=== PATIENT | male | born 1990 | race Caucasian/White ===

== ENCOUNTER 2023-08-10 23:05 | Emergency (ER) | payer SELFPAY ==
[2023-08-10 23:25] VITALS: RESP 20
[2023-08-10] MEDS: LORazepam 2 MG/ML VIAL IM (23:25)
[2023-08-10] MEDS: diphenhydrAMINE HCL 50 MG/ML VIAL IM (23:25)
[2023-08-10] MEDS: Haloperidol Lactate 5 MG/ML VIAL IM (23:25)
[2023-08-10 23:35] VITALS: BP 136/74; PULSE 120; RESP 16; O2SAT 98; BMI 27.1
--- NOTE | 2023-08-10 23:38 | PC.NURSE ---
no si/hi. sitter at bedside.
[2023-08-10 23:40] VITALS: PULSE 106; RESP 20; O2SAT 89
--- NOTE | 2023-08-10 23:40 | PC.NURSE ---
pt medicated per mar per Dr. Verma order. pt now sleeping appears comfortable arrousable to name. sats 89% on RA; 2L NC sats 92%. pt able to reposition self in stretcher. sitter at bedside.
[2023-08-10 23:51] VITALS: PULSE 101; O2SAT 92
[2023-08-11 00:04] LABS: MANUAL DIFF FLAG NO
[2023-08-11 00:05] LABS: Basophils Absolute Auto 0.1 X10*3/uL (0.0-0.2); Basophils Percent Auto 1.4 % (0-2); Eosinophils Absolute Auto 0.2 X10*3/uL (0.0-0.4); Eosinophils Percent Auto 3.4 % (0-4); Hematocrit 39.6 % (42.0-52.0); Hemoglobin 13.8 g/dl (14.0-18.0); Imm Gran Abs Auto 0.01 X10*3/uL (0.00-0.03); Imm Gran Pct Auto 0.2 % (0.0-0.4); Lymphocytes Absolute Auto 1.8 X10*3/uL (1.2-4.9); Lymphocytes Percent Auto 28.7 % (20-40); Mean Corpuscular HGB Conc 34.8 g/dl (31.0-36.0); Mean Corpuscular Hemoglobin 31.2 pg (27.0-33.0); Mean Corpuscular Volume 89.4 fL (80.0-98.0); Mean Platelet Volume 9.2 fL (9.4-12.4); Monocytes Absolute Auto 0.7 X10*3/uL (0.1-1.2); Monocytes Percent Auto 10.4 % (2-11); Neutrophils Absolute Auto 3.5 x10*3/uL (2.0-8.3); Neutrophils Percent Auto 55.9 % (45-73); Platelet Count 291 X10*3/uL (160-400); Red Blood Count 4.43 X10*6/uL (4.60-5.80); Red Cell Distribution Width 13.7 % (11.0-16.0); White Blood Count 6.2 X10*3/uL (4.8-10.8)
[2023-08-11 00:10] VITALS: PULSE 97; RESP 18; O2SAT 99
[2023-08-11 00:22] LABS: Alanine Aminotransferase 18 U/L (0-40); Albumin Level 4.2 g/dL (3.5-5.0); Alkaline Phosphatase 77 U/L (39-117); Anion Gap 16 (12-20); Aspartate Amino Transferase 48 U/L (5-37); Bilirubin Total 0.3 mg/dL (0.0-1.0); Blood Urea Nitrogen 15 mg/dL (9-16); Calcium 8.8 mg/dL (8.4-10.2); Carbon Dioxide 27 mmol/L (22-29); Chloride 108 mmol/L (96-108); Creatinine Clr Calc Pharmacy 124.1; Estimated Glomerular Filt Rate > 60; Ethanol 369 mg/dL; Glucose Random 99 mg/dL (60-115); Potassium 3.6 mmol/L (3.3-5.1); Sodium 147 mmol/L (135-145); Total Protein 7.1 g/dL (6.5-8.0)
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
--- NOTE | 2023-08-11 01:54 | PC.NURSE ---
pt sleeping in stretcher resp even and unlabored. 1:1 sitter at bedside.
[2023-08-11 05:14] VITALS: BP 129/67; PULSE 81; RESP 16; O2SAT 99
--- NOTE | 2023-08-11 07:13 | PC.NURSE ---
Resumed care of patient, he is currently sleeping with a 1:[address] measures in place, pt has been changed into hospital attire, belongings in decon at this time
--- NOTE | 2023-08-11 08:56 | PC.NURSE ---
This bid writer talked with patient who was asking what the plan is. he currently just moved here and does not have providers in place. Pt awaiting careteam at this time, denies SI/HI, denies wanting Detox a this time.
[2023-08-11 09:33] VITALS: BP 133/74; PULSE 104; RESP 16; TEMP 37; O2SAT 96
== END 2023-08-11 10:43 | disposition home or self-care (01) ==
LOC: HO.ED 08-11 09:31
PROVIDERS: Emergency Provider Internal Medicine
DX: F10.129 Alcohol abuse with intoxication, unspecified (principal); Y90.8 Blood alcohol level of 240 mg/100 ml or more
CPT/HCPCS: 36415; 80053; 80307; 85025; 96372; 99284; 99285; J1200; J1630; J2060

== ENCOUNTER 2023-12-15 22:41 | Emergency (ER) | payer OTHER, SELFPAY ==
[2023-12-15 23:20] VITALS: BP 158/94; PULSE 121; O2SAT 96
[2023-12-15 23:24] VITALS: BMI 30.4
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
--- NOTE | 2023-12-16 00:44 | PC.NURSE ---
pt states he is unable to find a sober ride home at this time, security called to bedside to change release manager pt into green attire. pt calm and cooperative and ambulating to bathroom with steady gait.
[2023-12-16 02:23] VITALS: RESP 18
== END 2023-12-16 02:34 | disposition home or self-care (01) ==
PROVIDERS: Emergency Provider Emergency Medicine
DX: F10.129 Alcohol abuse with intoxication, unspecified (principal); Y90.9 Presence of alcohol in blood, level not specified; F91.9 Conduct disorder, unspecified; Z79.899 Other long term (current) drug therapy
CPT/HCPCS: 99284

== ENCOUNTER 2024-05-05 03:57 | Inpatient (IN) | payer OTHER, SELFPAY ==
[2024-05-05] VITALS (16 sets, daily range): BP systolic 93–153; BP diastolic 55–109; PULSE 71–118; RESP 14–24; TEMP 36.1–37.2; O2SAT 94–100; BMI 64.2; BMI 29.9
--- NOTE | ~2024-05-05 | CT_ITS ---
EXAMINATION: CT HEAD WITHOUT CONTRAST CLINICAL INFORMATION: Mental status change COMPARISON: None available. TECHNIQUE: Contiguous axial imaging was performed from the skull base to vertex without intravenous administration of contrast. This CT examination was performed using dose optimization techniques as appropriate, variously including the following: *Automated exposure control *Adjustment of mA and/or kV according to patient size (this includes techniques or standardized protocols for targeted exams where dose is matched to indication/reason for exam; i.e. extremities or head) *Use of iterative reconstruction technique DLP: 697 mGy-cm FINDINGS: Asymmetric hypoattenuation within the left occipital lobe, 8:66 , 5:108 and 2:27. Elsewhere the kelly-white matter differentiation appears preserved. There is no evidence of acute intracranial hemorrhage. The ventricles are normal in morphology and size. No evidence for obstructive hydrocephalus. No abnormal mass effect or midline shift. No extra-axial fluid collections. No acute soft tissue or osseous abnormalities. Trace paranasal sinus mucosal thickening. The mastoids are well-aerated. CT/CT head/brain wo IV con IMPRESSION: Asymmetric hypoattenuation within the left occipital lobe with apparent loss of kelly-white matter differentiation. Unclear if this is artifactual. Further evaluation with MRI brain is recommended to assess for an acute infarct. This Critical Result was discussed with Dr Lamar Webb at 9:34 am on 05/05/2024 and it was ascertained that the content and urgency of the report was understood at the time of direct communication. Electronically signed by: Joe Barajas MD 05/05/2024 09:37 AM EDT
--- NOTE | ~2024-05-05 | XR_ITS ---
EXAMINATION: PRE-MRI SCREENING CLINICAL INFORMATION: Needs MRI COMPARISON: None available. TECHNIQUE: Single live of the lumbar spine, AP view chest and oblique view of the abdomen FINDINGS: The mediastinum appears mildly widened. Heart size within normal limits. No CHF. No gross bowel dilatation. No radiopaque foreign bodies are seen. XR/XR pre mri screening IMPRESSION: 1. No radiopaque foreign bodies are seen. 2. The mediastinum appears mildly widened. Electronically signed by: oYbani Vasquez MD 05/05/2024 05:26 PM EDT
--- NOTE | 2024-05-05 04:22 | PC.NURSE ---
Patient endorses being under the influence of alcohol. Changed into hospital attire, Belongings located in C6 in the closet. Of note, patient does seem to be speaking to people that are not there and reacting to internal stimuli.
--- NOTE | 2024-05-05 04:32 | PC.NURSE ---
Patient complaining of pins and needles in his arm and becoming very exacerbated about this feeling. At the same time is having difficulty recalling basic information like address and or phone number.
[2024-05-05 05:03] LABS: Basophils Absolute Auto 0.1 X10*3/uL (0.0-0.2); Basophils Percent Auto 0.6 % (0-2); Eosinophils Absolute Auto 0.1 X10*3/uL (0.0-0.4); Eosinophils Percent Auto 0.6 % (0-4); Hematocrit 44.5 % (42.0-52.0); Imm Gran Abs Auto 0.03 X10*3/uL (0.00-0.03); Imm Gran Pct Auto 0.4 % (0.0-0.4); Lymphocytes Absolute Auto 1.6 X10*3/uL (1.2-4.9); Lymphocytes Percent Auto 19.7 % (20-40); MANUAL DIFF FLAG NO; Mean Corpuscular Hemoglobin 31.5 pg (27.0-33.0); Mean Corpuscular Volume 87.6 fL (80.0-98.0); Mean Platelet Volume 9.6 fL (9.4-12.4); Monocytes Absolute Auto 0.9 X10*3/uL (0.1-1.2); Monocytes Percent Auto 11.6 % (2-11); Neutrophils Absolute Auto 5.4 x10*3/uL (2.0-8.3); Neutrophils Percent Auto 67.1 % (45-73); Platelet Count 177 X10*3/uL (160-400); Red Blood Count 5.08 X10*6/uL (4.60-5.80); Red Cell Distribution Width 11.9 % (11.0-16.0); White Blood Count 8.1 X10*3/uL (4.8-10.8)
[2024-05-05 05:19] LABS: Alanine Aminotransferase 454 U/L (0-40); Albumin Level 4.7 g/dL (3.5-5.0); Alkaline Phosphatase 47 U/L (39-117); Amphetamine Screen Urine Not Detected (Not Detect); Anion Gap 17 (12-20); Aspartate Amino Transferase 620 U/L (5-37); Barbiturates, Urine Not Detected (Not Detect); Benzodiazepines Screen Urine Not Detected (Not Detect); Bilirubin Total 0.6 mg/dL (0.0-1.0); Blood Urea Nitrogen 10 mg/dL (9-16); Buprenorphine Scr Not Detected (Not Detect); Calcium 9.7 mg/dL (8.4-10.2); Cannabinoid Screen Urine Not Detected (Not Detect); Carbon Dioxide 22 mmol/L (22-29); Chloride 102 mmol/L (96-108); Cocaine Screen Urine Not Detected (Not Detect); Estimated Glomerular Filt Rate > 60; Ethanol 217 mg/dL; Fentanyl, urine Not Detected (Not Detect); Glucose Random 98 mg/dL (60-115); Methadone Screen, Urine Not Detected (Not Detect); Opiate Screen Urine Not Detected (Not Detect); Oxycodone Screen Urine Not Detected (Not Detect); Phencyclidine Screen Urine Not Detected (Not Detect); Potassium 3.3 mmol/L (3.3-5.1); Sodium 138 mmol/L (135-145)
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
[2024-05-05] MEDS: LORazepam 1 MG TABLET 2 MG PO (08:26)
[2024-05-05] MEDS: Thiamine HCL 100 MG TABLET PO (08:27)
[2024-05-05 09:09] LABS: Magnesium 1.9 mg/dL (1.6-2.6)
[2024-05-05 09:41] LABS: Alanine Aminotransferase 446 U/L (0-40); Albumin Level 4.5 g/dL (3.5-5.0); Alkaline Phosphatase 45 U/L (39-117); Aspartate Amino Transferase 556 U/L (5-37); Bilirubin Direct 0.2 mg/dL (0.0-0.5); Bilirubin Total 0.6 mg/dL (0.0-1.0); Total Protein 7.7 g/dL (6.5-8.0)
[2024-05-05] MEDS: PHENobarbitaL sodium 130 MG/ML IM ONCE 361 MG IM (09:54)
[2024-05-05] MEDS: Thiamine HCL 200 MG in 0.9 % Sodium Chloride 100 ML 204 MG IV ×2 (09:54→22:38)
--- NOTE | 2024-05-05 09:56 | PC.NURSE ---
20g LAC CIWA = 9; Pt medicated per MAR. Pt is restless and frequently attempts to get out of bed. Pt noted to be talking to self or no person directly. VSS.
[2024-05-05 09:57] LABS: Ammonia 31 umol/L (13-55)
[2024-05-05] MEDS: LORazepam 2 MG/ML VIAL IM (10:38)
[2024-05-05] MEDS: OLANZapine 10 MG VIAL IM (10:39)
--- NOTE | 2024-05-05 11:10 | PHA.MEDREC ---
Addendum entered by Emmanuel Dickens [facility] 05/06/24 09:16: Still can't talk to patient, he was in a deep sleep. Original Note: Pharmacy Consult ? Medication Reconciliation Pharmacy has completed the medication reconciliation. Patient came to [facility]. Home medications are Unobtainable at this time because there are no claims and no contact on file for patient.
[2024-05-05] MEDS: PHENobarbitaL sodium 65 MG/ML VIAL IVPUSH ×2 (11:22→11:26)
--- NOTE | 2024-05-05 11:24 | P.HPHOSP_ITS ---
History of Present Illness Date of Service: 05/05/24 Attending physician on admission: Danielle Edmondson Chief Complaint: Alcohol intoxication, AMS Pt is a 34-year-old male with an unknown PMH who presents to the ED via EMS after being found by the police department acutely intoxicated and talking to himself. Patient has been chemically and physically restrained due to aggressive/agitated behavior and is currently somnolent and resting comfortably in bed in no acute distress. Patient is thus unable to provide accurate HPI which is instead taken from chart and provider review. Patient has been altered and apparently experiencing auditory and visual hallucinations since arrival, talking to himself, hu, and people who are not there. Patient's story has constantly changed, from believing that he was dropped off by his brother from home, that he needs to take a train to [place] to visit his children, to not remembering his name/initially providing the wrong name at triage, and giving the date of May 2025. Patient has also been talking about some kind of ?drop off? at a bus stop involving $40,000 and some kind of plan that nursing is not abiding by. Other bizarre behavior includes licking the bed rails and screaming. Pt has repeatedly attempted to leave AMA but is not at baseline and unable to comprehend his situation. A section 12 has been issued. Care team has been notified and will evaluate and reach out to Psychiatry as necessary. 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 Apparently called a brother to come pick him up, but has provided no family/other contact info to the hospital to contact. In the ED pt was tachycardic up to 118 and initially hypertensive at 152/99. Labs were significant for transaminitis AST 620 and ALT 454. No leukocytosis. Stable H&H. No electrolyte abnormalities. Renal function baseline. Ammonia WNL. Tox screen positive for ethyl alcohol level of 217, otherwise negative. CT?of head showed asymmetric hypoattenuation within left occipital lobe apparent loss of kelly-white matter differentiation. Unclear if artifactual, though MRI recommended to assess for acute infarct. EKG not yet obtained. Pt was treated with Ativan p.o. and IM, thiamine p.o. and IV, olanzapine 10 mg IM and started on phenobarb protocol. Pt will be admitted to the hospital for treatment and further evaluation of acute metabolic encephalopathy of unclear etiology: Acute psychosis vs alcohol withdrawal vs CVA. Review of Systems 2 Review of Systems: Unable to obtain due to patient's mentation [facility] Medical History No pertinent past medical history Social History (System 05/05/24 @ 12:18 by Bianca Watkins) Alcohol intake: current Alcohol intake frequency: 3 or more drinks per day Alcohol type: beer and hard liquor Smoked in Last 30 Days: Yes Use of substances other than those prescribed or required for medical reasons: No Advance Directives: No Advance Directives Information Provided: No Do you have a plan to hurt others: No Plan Meds Allergies Allergy/AdvReac Type Severity Reaction Status Date / Time No Known Allergies Allergy Verified 05/05/24 12:18 Active Medications: Current Medications Lorazepam (Lorazepam 1 Mg Tablet) 2 mg PO Q3H PRN PRN Reason: Alcohol Withdrawal Last Admin: 05/05/24 08:26 Dose: 2 mg Pharmacy Consult (Consult Rx Etoh Phenob Im/Po) 1 each MISCELLANE ONCE PRN; Protocol PRN Reason: Consult order Phenobarbital (Phenobarbital 30 Mg Tablet) 60 mg PO BID PO; Protocol Stop: 05/07/24 09:01 Phenobarbital (Phenobarbital 30 Mg Tablet) 30 mg PO BID PO; Protocol Stop: 05/09/24 09:01 Phenobarbital (Phenobarbital 30 Mg Tablet) 30 mg PO DAILY PO; Protocol Stop: 05/11/24 09:01 Phenobarbital Sodium (Phenobarbital Sodium 130 Mg/Ml Vial Im Q3hx2) 271 mg IM Q3H PO; Protocol Stop: 05/05/24 15:31 Home Medications ?Medication ?Instructions ?Recorded ?Confirmed ?Last Taken ?Type Unobtainable 05/05/24 05/05/24 Unknown History Physical Exam 2 Vital Signs and Narrative: Vital Signs: Last Vital Signs Temp 97 F 05/05/24 08:57 Pulse 106 H 05/05/24 09:09 Resp 16 05/05/24 09:09 BP 134/86 05/05/24 09:09 Pulse Ox 94 05/05/24 09:09 O2 Del Method Room Air 05/05/24 09:09 BMI result Body Mass Index 64.2 General: Somnolent, resting comfortably in bed. In 4-point soft restraints. In no acute distress. Resp: CTA bilaterally CVS: S1, S2, regularl rhythm, tachy GI: +BS, NT, no distention Skin: Warm, dry Neuro: Cranial nerves II-XII grossly intact bilaterally. Motor grossly intact bilaterally Extremities: No edema Results Labs 05/05/24 04:58 05/05/24 04:58 Labs: Laboratory Results - last 24 hr 05/05/24 05/05/24 05/05/24 04:58 09:10 09:33 MCV 87.6 MCH 31.5 MCHC 36.0 RDW 11.9 Plt Count 177 MPV 9.6 Immature Gran % (Auto) 0.4 Neut % (Auto) 67.1 Lymph % (Auto) 19.7 L Imperial % (Auto) 11.6 H Eos % (Auto) 0.6 Baso % (Auto) 0.6 Lymph # (Auto) 1.6 Imperial # (Auto) 0.9 Eos # (Auto) 0.1 Baso # (Auto) 0.1 Abs Immat Gran (auto) 0.03 Absolute Neuts (auto) 5.4 Absolute Nucleated RBC 0.000 Nucleated RBC % (auto) 0.0 Anion Gap 17 Estim Creat Clear Calc TNP Estimated GFR > 60 Random Glucose 98 Calcium 9.7 Magnesium 1.9 Total Bilirubin 0.6 0.6 Direct Bilirubin 0.2 AST 620 H 556 H ALT 454 H 446 H Alkaline Phosphatase 47 45 Ammonia 31 Total Protein 8.0 7.7 Albumin 4.7 4.5 Urine Opiates Screen Not Detected Ur Buprenorphine Scrn Not Detected Ur Oxycodone Screen Not Detected Urine Methadone Screen Not Detected Urine Fentanyl Screen Not Detected Ur Barbiturates Screen Not Detected Ur Phencyclidine Scrn Not Detected Ur Amphetamines Screen Not Detected U Benzodiazepines Scrn Not Detected Urine Cocaine Screen Not Detected U Marijuana (THC) Screen Not Detected Ethyl Alcohol 217 Imaging Radiologist's Impressions: Impressions Head CT 05/05/24 08:42 IMPRESSION: Asymmetric hypoattenuation within the left occipital lobe with apparent loss of kelly-white matter differentiation. Unclear if this is artifactual. Further evaluation with MRI brain is recommended to assess for an acute infarct. This Critical Result was discussed with Dr Lamar Webb at 9:34 am on 05/05/2024 and it was ascertained that the content and urgency of the report was understood at the time of direct communication. Electronically signed by: Joe Barajas MD 05/05/2024 09:37 AM EDT RP Assessment and Plan (1) Metabolic encephalopathy: Status: Acute Plan Pt is a 34-year-old male with an unknown PMH who presents to the ED via EMS after being found by the police department acutely intoxicated and talking to himself. Patient has been chemically and physically restrained due to aggressive/agitated behavior and is currently somnolent and resting comfortably in bed in no acute distress. Pt will be admitted to the hospital for treatment and further evaluation of acute metabolic encephalopathy of unclear etiology: Acute psychosis vs alcohol withdrawal vs CVA. Acute metabolic encephalopathy Patient with AMS, auditory and visual hallucinations, aggression/agitation Unclear etiology: Acute psychosis vs alcohol withdrawal vs acute intoxication vs CVA No known psych history, no known withdrawal history, tox screen positive only for ethyl alcohol of 217 Patient currently chemically and physically restrained with section [address] Care team consult Treat individual issues on differential as below Alcohol use disorder Reports drinking heavily daily Initial ethyl alcohol 217, withdrawal likely imminent Patient is started phenobarb protocol, continue Will treat with IV thiamine 200 mg bid Daily multivitamin, folic acid, famotidine Follow lytes, Mag Monitor on [facility] Addiction medicine consult Monitor on telemetry Abnormal CT CT found asymmetric hypoattenuation within left occipital lobe ?Artifactual vs acute infarct Will get MRI of head/brain Elevated LFTS AST 620 with ALT 454 Likely secondary to alcoholic hepatitis Will check hepatitis panel Intermittent hypoxia Pt dipping into 80s while sleeping ?TALYA Oxymask while sleeping Follow up outpatient Full Code Attending:?Dr. Edmondson DVT Prophylaxis: Lovenox Pt will require a hospitalization of at least two nights for treatment of?acute metabolic encephalopathy of unclear etiology with differential including acute psychosis vs alcohol withdrawal vs acute intoxication vs CVA. Patient is currently placed on a section 12 and not at baseline. We will require hospital level care for administration of phenobarb protocol, close monitoring of labs and mentation, as well as additional workup for acute psychosis and CVA. Quality Stroke Does the patient have a stroke diagnosis?: No VTE Prior VTE?: No VTE Risk Level:: Medical - moderate - high VTE Device Contraindication: Treatment Not Indicated VTE Drug Contraindication: N/A - Med Ordered
[2024-05-05] MEDS: Lactated Ringers 1,000 ML 999 ML IV ×2 (12:14)
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
--- NOTE | 2024-05-05 12:54 | PC.NURSE ---
1250: upper restraints removed from Pt--Pt is now completely unrestrained. Pt repositioned for comfort and ease for sleeping. While repositioning, large area of ecchymosis noted to Pt R posterior upper extremity. Pt continues sleeping and snoring loudly. VSS and NAD noted at this time. Pt with sitter currently.
--- NOTE | 2024-05-05 13:56 | MHC.CM.ED ---
PATIENT CURRENTLY IN ROOM WITH STAFF AND SECURITY. NOT AN APPROPRIATE TIME TO HAVE CM DISCUSSION AND ASSESSMENT OF CARE NEEDS. NO PCP LISTED. NO HCP ON FILE. CM FOLLOWING FOR DC NEEDS.
[2024-05-05] MEDS: Enoxaparin Sodium 40 MG/0.4 ML SYRINGE SUBCUT (14:46)
[2024-05-05] MEDS: 0.9 % Sodium Chloride Flush 3 ML SYRINGE IVFLUSH (16:53)
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
--- NOTE | 2024-05-05 18:44 | PC.NURSE ---
1400: Pt presents with significant agitation, combative, and uncooperative behavior. Four point restrains applied, sitter presnt, VS monitored Q15 mins. At approx 1715: Pt becomes alert and requests to use bathroom. Security called and Pt allows one limb for urinal use. Upon using the urinal, Pt attempted to remove his other restraints and demanded to leave. Consult with hospitalist re: leaving restraints on. Plan is to continue and possibly add IM medications.
--- NOTE | 2024-05-05 19:03 | PC.NURSE ---
Care of Pt and restraint documentation relinquished to RN Norim.
[2024-05-05] MEDS: PHENobarbitaL sodium 130 MG/ML VIAL IM (19:20)
--- NOTE | 2024-05-05 19:26 | PC.NURSE ---
assumed care of pt at this time. pt is axox4. vss as documented. ciwa score 9 has moments of becoming agitated and restless states he had tickets to [place] to fly out and needs to leave. pt is answer questions appropriately. currently in 4 point restraints, upon removal of a limb pt starts flailing/reaching to remove other restraints. per MD to continue restraints x 4 hours from start time at 1800. pt medicated per oct with phenobarb for withdrawals. 1:1 sitter at bedside.
--- NOTE | 2024-05-05 21:45 | PC.NURSE ---
restraints removed see restraint sheet. 1:1 sitter at bedside. pt sleeping. resp even and unlabored.
--- NOTE | 2024-05-05 23:56 | PC.NURSE ---
restraints removed see restraint sheet. 1:1 sitter at bedside. pt sleeping. resp even and unlabored.
[2024-05-06 00:02] VITALS: BP 95/57; PULSE 81; RESP 14; TEMP 36.9; O2SAT 97
--- NOTE | 2024-05-06 00:17 | PC.NURSE ---
2100 po meds held as pt sleeping md okay to not awake pt.
[2024-05-06 03:25] VITALS: BP 96/53; PULSE 70; RESP 20; TEMP 36.6; O2SAT 97
[2024-05-06 07:09] LABS: Blood Urea Nitrogen 12 mg/dL (9-16); Calcium 9.2 mg/dL (8.4-10.2); Creatinine Clr Calc Pharmacy 155.3; Estimated Glomerular Filt Rate > 60; Glucose Random 78 mg/dL (60-115); Magnesium 1.9 mg/dL (1.6-2.6)
[2024-05-06 07:24] LABS: Anion Gap 14 (12-20); Carbon Dioxide 28 mmol/L (22-29); Chloride 103 mmol/L (96-108); Sodium 141 mmol/L (135-145)
[2024-05-06 07:52] LABS: HBS Num1 0.26 mIU/mL (0-7.99); HBc Num1 0.23 S/CO (0.00-0.79); HBsAGNum1 0.31 S/CO (0.00-0.99); Hepatitis A Antibody IgM 0.17 Index (0-0.79); Hepatitis B Core Antibody Nonreactive (Nonreactive); Hepatitis B Surface Antigen Negative (Negative); ~HepC Num1 0.17 S/CO (0.00-0.79); ~Hepatitis A Antibody IgM Nonreactive (Nonreactive); ~Hepatitis B Surface Antibody NONREACTIVE (Nonreactive); ~Hepatitis C Antibody Nonreactive (Nonreactive)
--- NOTE | 2024-05-06 07:55 | PC.NURSE ---
Patient admitted from the ED around 0105 with sitter 1;1 at bed side.AAOX4. Denies pain , sob, nausea, vomiting. Patient is calmer and more cooperative. CIWA Score 6 and 3. VSS. NSR on tele monitor.
[2024-05-06 08:00] VITALS: BP 115/68; PULSE 64; RESP 18; TEMP 36.3; O2SAT 98
[2024-05-06] MEDS: PHENobarbitaL 30 MG TABLET 60 MG PO (09:54)
[2024-05-06] MEDS: Folic Acid 1 MG TABLET PO (09:54)
[2024-05-06] MEDS: 0.9 % Sodium Chloride Flush 3 ML SYRINGE IVFLUSH (09:55)
[2024-05-06] MEDS: Famotidine 20 MG TABLET PO (09:55)
[2024-05-06 12:00] VITALS: BP 149/73; PULSE 79; RESP 18; TEMP 36.6; O2SAT 99
--- NOTE | 2024-05-06 13:27 | MHC.CM.PN ---
Pt lives with his mother and brother. He is independent, no home health services or DME. He does not have a PCP, brochure for [facility] was given to him. HCP will be completed and added to chart. He said he will take the bus home at time of DC. DCP: home, self care. CM to follow for DC needs.
--- NOTE | 2024-05-06 17:07 | PM.PSYCN ---
History of Present Illness Date of Service: 05/06/2024 Chief Complaint: Acute metabolic encephalopathy Reason for Consult: capacity Requesting physician: Danielle Edmondson Discussed with referring provider: Yes Sources of Information: patient interviewed, chart reviewed and crisis/core team assessment reviewed HPI Narrative: Mr. Gooden is a 34 year-old male with hx of alcohol use disorder who self presented to [facility] confused, talking with the wall, not oriented to month. His BAL was 217. He was medically admitted to start phenobarb alcohol withdrawal taper and thiamine. Pt today demending to leave and given presentation yesterday capacity assessment was ordered. Pt seen in his room. He presents as irritable and initially difficult to redirect so assessment could be conducted. He reports he drinks daily. He does not have much recollection yesterday and thinks that he was kept unnecessarily stating I was fine yesterday. He knows the month, year, place. No insight into extent of alcohol use disorder but his overall capacity to make medical decisions seems intact. He reports he works at [email or web address], that he does not want to miss more days at work. He declines any referrals for substance use tx. He does not appear with psychosis or delusions. Although this morning he had said that staff had stolen $400 from him, which he later stated this was not true, and that he did not believe this anymore. He denied SI/HI. He denies depressed mood. [facility] Medical History No pertinent past medical history Diagnostics Vital Signs (24Hr): Vital Signs - 24 hr 05/05/24 19:18 05/05/24 19:30 05/05/24 19:45 Temperature 98.8 F 98.7 F 98.0 F Pulse Rate 100 78 99 Respiratory Rate 15 14 14 Blood Pressure 139/80 144/93 H 140/95 H Pulse Oximetry 100 100 98 Oxygen Delivery Method Oxymask Oxymask Oxymask Oxygen Flow Rate 5 5 05/05/24 20:00 05/05/24 20:15 05/05/24 20:30 Temperature 98.2 F Pulse Rate 115 H 101 H 98 Respiratory Rate 24 H 15 14 Blood Pressure 153/105 H 128/109 H 126/73 Pulse Oximetry 99 97 95 Oxygen Delivery Method Room Air Room Air Room Air Oxygen Flow Rate 05/05/24 20:45 05/05/24 21:00 05/05/24 21:15 Temperature Pulse Rate 97 91 99 Respiratory Rate 15 16 17 Blood Pressure 129/75 114/76 93/61 Pulse Oximetry 96 97 95 Oxygen Delivery Method Oxymask Oxymask Oxymask Oxygen Flow Rate 2 2 4 05/05/24 21:30 05/05/24 21:45 05/06/24 00:02 Temperature 98.4 F Pulse Rate 79 71 81 Respiratory Rate 14 16 14 Blood Pressure 101/64 93/55 L 95/57 L Pulse Oximetry 97 99 97 Oxygen Delivery Method Oxymask Oxymask Oxymask Oxygen Flow Rate 4 4 4 05/06/24 03:25 05/06/24 08:00 05/06/24 12:00 Temperature 97.9 F 97.3 F 97.9 F Pulse Rate 70 64 79 Respiratory Rate 20 18 18 Blood Pressure 96/53 L 115/68 149/73 H Pulse Oximetry 97 98 99 Oxygen Delivery Method Room Air Room Air Room Air Oxygen Flow Rate BMI result Body Mass Index 29.9 Labs 05/05/24 04:58 05/06/24 06:07 Labs: Laboratory Results - last 48 hr 05/05/24 05/05/24 05/05/24 04:58 09:10 09:33 WBC 8.1 RBC 5.08 Hgb 16.0 Hct 44.5 MCV 87.6 MCH 31.5 MCHC 36.0 RDW 11.9 Plt Count 177 MPV 9.6 Immature Gran % (Auto) 0.4 Neut % (Auto) 67.1 Lymph % (Auto) 19.7 L Logan % (Auto) 11.6 H Eos % (Auto) 0.6 Baso % (Auto) 0.6 Lymph # (Auto) 1.6 Logan # (Auto) 0.9 Eos # (Auto) 0.1 Baso # (Auto) 0.1 Abs Immat Gran (auto) 0.03 Absolute Neuts (auto) 5.4 Absolute Nucleated RBC 0.000 Nucleated RBC % (auto) 0.0 Sodium 138 Potassium 3.3 Chloride 102 Carbon Dioxide 22 Anion Gap 17 BUN 10 Creatinine 1.11 Estim Creat Clear Calc TNP Estimated GFR > 60 Random Glucose 98 Calcium 9.7 Magnesium 1.9 Total Bilirubin 0.6 0.6 Direct Bilirubin 0.2 AST 620 H 556 H ALT 454 H 446 H Alkaline Phosphatase 47 45 Ammonia 31 Total Protein 8.0 7.7 Albumin 4.7 4.5 Urine Opiates Screen Not Detected Ur Buprenorphine Scrn Not Detected Ur Oxycodone Screen Not Detected Urine Methadone Screen Not Detected Urine Fentanyl Screen Not Detected Ur Barbiturates Screen Not Detected Ur Phencyclidine Scrn Not Detected Ur Amphetamines Screen Not Detected U Benzodiazepines Scrn Not Detected Urine Cocaine Screen Not Detected U Marijuana (THC) Screen Not Detected Ethyl Alcohol 217 Hepatitis A IgM Ab Hep Bs Antigen Hep Bs Antibody Hep B Core Total Ab Hepatitis C Ab (EIA) 05/06/24 06:07 WBC RBC Hgb Hct MCV MCH MCHC RDW Plt Count MPV Immature Gran % (Auto) Neut % (Auto) Lymph % (Auto) Logan % (Auto) Eos % (Auto) Baso % (Auto) Lymph # (Auto) Logan # (Auto) Eos # (Auto) Baso # (Auto) Abs Immat Gran (auto) Absolute Neuts (auto) Absolute Nucleated RBC Nucleated RBC % (auto) Sodium 141 Potassium 4.0 D Chloride 103 Carbon Dioxide 28 Anion Gap 14 BUN 12 Creatinine 0.79 Estim Creat Clear Calc 155.3 Estimated GFR > 60 Random Glucose 78 Calcium 9.2 Magnesium 1.9 Total Bilirubin Direct Bilirubin AST ALT Alkaline Phosphatase Ammonia Total Protein Albumin Urine Opiates Screen Ur Buprenorphine Scrn Ur Oxycodone Screen Urine Methadone Screen Urine Fentanyl Screen Ur Barbiturates Screen Ur Phencyclidine Scrn Ur Amphetamines Screen U Benzodiazepines Scrn Urine Cocaine Screen U Marijuana (THC) Screen Ethyl Alcohol Hepatitis A IgM Ab Nonreactive Hep Bs Antigen Negative Hep Bs Antibody NONREACTIVE Hep B Core Total Ab Nonreactive Hepatitis C Ab (EIA) Nonreactive Imaging Radiology Impressions: ITS Impressions Head CT 05/05/24 08:42 IMPRESSION: Asymmetric hypoattenuation within the left occipital lobe with apparent loss of kelly-white matter differentiation. Unclear if this is artifactual. Further evaluation with MRI brain is recommended to assess for an acute infarct. This Critical Result was discussed with Dr Lamar Webb at 9:34 am on 05/05/2024 and it was ascertained that the content and urgency of the report was understood at the time of direct communication. Electronically signed by: Joe Barajas MD 05/05/2024 09:37 AM EDT [facility] X-Ray 05/05/24 13:35 IMPRESSION: 1. No radiopaque foreign bodies are seen. 2. The mediastinum appears mildly widened. Electronically signed by: Yobani Vasquez MD 05/05/2024 05:26 PM EDT RP Mental Status Exam Mental Status Exam Narrative: Appearance: wearing hospital gown, fair hygiene, in NAD Behavior: guarded, irritable edge Psychomotor: no agitation or retardation noted Speech: clear, normal rate/rhythm/volume, spontaneous TP:goal oriented- wanted to leave ROBIN TC: wanting to go Mood: okay Affect: guarded and irritable SI: denies HI: denies VH/AH: no overt signs Delusions: no overt delusional content Insight/judgment: very poor x 2. but appear intact at this moment Memory/cog: alert, oriented x 4. Medications Medications Current Medications Acetaminophen (Acetaminophen 325 Mg Tablet) 650 mg PO Q6H PRN PRN Reason: Pain, Mild (Pain Scale 1-3), fever or headache Benzonatate (Benzonatate 100 Mg Capsule) 100 mg PO TID PRN PRN Reason: Cough Calcium Carbonate (Calcium Carbonate 750 Mg Tab.Chew) 750 mg PO Q4H PRN PRN Reason: Heartburn Enoxaparin Sodium (Enoxaparin Sodium 40 Mg/0.4 Ml Syringe) 40 mg SUBCUT Q24H [facility] Last Admin: 05/06/24 13:06 Dose: Not Given Famotidine (Famotidine 20 Mg Tablet) 20 mg PO BID [facility] Last Admin: 05/06/24 09:55 Dose: 20 mg Folic Acid (Folic Acid 1 Mg Tablet) 1 mg PO DAILY [facility] Stop: 05/08/24 12:34 Last Admin: 05/06/24 09:54 Dose: 1 mg Haloperidol Lactate (Haloperidol Lactate 5 Mg/Ml Vial) 5 mg IM ONCE PRN PRN Reason: Restlessness Thiamine HCl 200 mg/ Sodium (Chloride) 102 mls @ 204 mls/hr IV Q12H [facility] Last Admin: 05/06/24 10:01 Dose: Not Given Lorazepam (Lorazepam 1 Mg Tablet) 2 mg PO Q3H PRN PRN Reason: Alcohol Withdrawal Last Admin: 05/05/24 08:26 Dose: 2 mg Magnesium Hydroxide (Milk Of Magnesia 30 Ml Oral.Susp) 30 ml PO DAILY PRN PRN Reason: Constipation Ondansetron HCl (Ondansetron Hcl 4 Mg/2 Ml Vial) 4 mg IVPUSH Q8H PRN PRN Reason: Nausea and Vomiting Pharmacy Consult (Consult Rx Etoh Phenob Im/Po) 1 each MISCELLANE ONCE PRN; Protocol PRN Reason: Consult order Phenobarbital (Phenobarbital 30 Mg Tablet) 60 mg PO BID [facility]; Protocol Stop: 05/07/24 09:01 Last Admin: 05/06/24 09:54 Dose: 60 mg Phenobarbital (Phenobarbital 30 Mg Tablet) 30 mg PO BID [facility]; Protocol Stop: 05/09/24 09:01 Phenobarbital (Phenobarbital 30 Mg Tablet) 30 mg PO DAILY PO; Protocol Stop: 05/11/24 09:01 Sodium Chloride (0.9 % Sodium Chloride Flush 3 Ml Syringe) 3 ml IVFLUSH QSHIFT [facility] Last Admin: 05/06/24 15:20 Dose: Not Given Allergies Allergies Allergy/AdvReac Type Severity Reaction Status Date / Time No Known Allergies Allergy Verified 05/05/24 12:18 Assessment & Plan Assessment & Plan (1) Encounter for assessment of decision-making capacity: Status: Acute Code(s): Z00.8 - Encounter for other general examination Plan Mr. Gooden is a 34 year-old male with hx of alcohol use disorder who presented to ED confused, talking to the wall, did not know the month, agitated. He was medically admitted for phenobarb alcohol withdrawal protocol. He is asking to leave AMA. He appears more oriented to place, situation, month and date, although he has no insight into extend of alcohol use disorder. Nonetheless, his capacity to make medical decisions appears intact at this time. Total time managing care of this patient today ____ minutes.
--- NOTE | 2024-05-06 17:21 | P.DS_ITS ---
DS: Providers Provider Date of Service: 05/06/24 Date of admission: 05/05/24 12:28 Date of discharge: 05/06/24 Primary care physician: None Physician Consults: 05/05/24 10:17 Consult to Care Team Stat Comment: Reason for consultation: acting erratic, wanting to leave AMA, unsure he can leave ETOH abuse 05/06/24 11:13 Consult to Psychiatry Routine Consulting Provider: Hannah Quiñones Reason for consultation: underlying psyche issue/etoh abuse Has provider been notified: No 05/06/24 15:46 Consult to Care Team Stat Comment: Reason for consultation: etoh intoxication/medically cleared NO SI 05/06/24 15:50 Addiction Medicine Stat Consulting Provider: Addiction Covering Reason for consultation: etoh addiction Has provider been notified: No DS: Diagnosis Discharge Diagnosis (1) Metabolic encephalopathy: Status: Acute DS: Summary Hospital Course Hospital Course: Date of Service: 05/05/24 Attending physician on admission: Danielle Edmondson Chief Complaint: Alcohol intoxication, AMS Pt is a 34-year-old male with an unknown PMH who presents to the ED via EMS after being found by the police department acutely intoxicated and talking to himself. Patient has been chemically and physically restrained due to aggressive/agitated behavior and is currently somnolent and resting comfortably in bed in no acute distress. Patient is thus unable to provide accurate HPI which is instead taken from chart and provider review. Patient has been altered and apparently experiencing auditory and visual hallucinations since arrival, talking to himself, hu, and people who are not there. Patient's story has constantly changed, from believing that he was dropped off by his brother from home, that he needs to take a train to [place] to visit his children, to not remembering his name/initially providing the wrong name at triage, and giving the date of May 2025. Patient has also been talking about some kind of ?drop off? at a bus stop involving $40,000 and some kind of plan that nursing is not abiding by. Other bizarre behavior includes licking the bed rails and screaming. Pt has repeatedly attempted to leave AMA but is not at baseline and unable to comprehend his situation. A section 12 has been issued. Care team has been notified and will evaluate and reach out to Psychiatry as necessary. 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 Apparently called a brother to come pick him up, but has provided no family/other contact info to the hospital to contact. In the ED pt was tachycardic up to 118 and initially hypertensive at 152/99. Labs were significant for transaminitis AST 620 and ALT 454. No leukocytosis. Stable H&H. No electrolyte abnormalities. Renal function baseline. Ammonia WNL. Tox screen positive for ethyl alcohol level of 217, otherwise negative. CT?of head showed asymmetric hypoattenuation within left occipital lobe apparent loss of kelly-white matter differentiation. Unclear if artifactual, though MRI recommended to assess for acute infarct. EKG not yet obtained. Pt was treated with Ativan p.o. and IM, thiamine p.o. and IV, olanzapine 10 mg IM and started on phenobarb protocol. Pt will be admitted to the hospital for treatment and further evaluation of acute metabolic encephalopathy of unclear etiology: Acute psychosis vs alcohol withdrawal vs CVA. 34-year-old male with an unknown PMH who presents to the ED via EMS after being found by the police department acutely intoxicated and talking to himself, talking to wall, agitated, patient was chemically and physically restrained due to aggressive/agitated behavior in ED and subsequently admitted to hospital for further treatment of acute metabolic encephalopathy likely due to alcohol intoxication, drug toxicology was negative was treated with phenobarb protocol, folic acid, IV thiamine, CT head showed asymmetric hypoattenuation within the left occipital lobe question artifact versus acute infarction, plan was to obtain MRI study but patient noted to have a normal neuro examination unsteady gait, declined further testing, LFTs were elevated likely due to alcoholic hepatitis, patient was evaluated by psychiatrist he admitted to drinking alcohol daily , demanded to leave hospital since he did not wanted to miss more days of work, he declined any referrals for substance use treatment, he seems to have good capacity to make decision, did not appear psychotic or delusional,He was made aware of risk of continued drinking including seizures, DTs, psychosis delirium high risk for fall and , patient showed understanding of risk and left hospital against medical advice Discharge diagnosis Acute toxic metabolic encephalopathy likely due to alcohol intoxication. Alcohol use disorder. Abnormal head CT CT found asymmetric hypoattenuation within left occipital lobe ?Artifactual vs acute infarct. Elevated LFTS likely secondary to alcoholic hepatitis. Time Attestation Discharge Coordination Time (in mins): 38 Quality: Safe Use of Opioids Does Pt have an Active Cancer Diagnosis on the Problem List?: No Quality: Stroke Does the patient have a stroke diagnosis?: No Physical Exam Vital Signs: Vital Signs: Last Vital Signs Temp 97.9 F 05/06/24 12:00 Pulse 79 05/06/24 12:00 Resp 18 05/06/24 12:00 BP 149/73 H 05/06/24 12:00 Pulse Ox 99 05/06/24 12:00 O2 Del Method Room Air 05/06/24 12:00 O2 Flow Rate 4 05/06/24 00:02 BMI result Body Mass Index 29.9 Const: Other: General awake alert x3, in no acute distress. Neck no JVD. CVS regular rate rhythm, Respiratory lungs clear to auscultation, no respiratory distress, no wheeze, no rhonchi. Gastrointestinal abdomen soft, non tender, bowel sounds audible Extremities no edema. Neuro nonfocal, moving all 4 extremity, speech clear. Skin no rash DS: Data Data Completed and Pending Labs on day of discharge: Laboratory Results - last 24 hr 05/06/24 06:07 Sodium 141 Potassium 4.0 D Chloride 103 Carbon Dioxide 28 Anion Gap 14 BUN 12 Creatinine 0.79 Estim Creat Clear Calc 155.3 Estimated GFR > 60 Random Glucose 78 Calcium 9.2 Magnesium 1.9 Hepatitis A IgM Ab Nonreactive Hep Bs Antigen Negative Hep Bs Antibody NONREACTIVE Hep B Core Total Ab Nonreactive Hepatitis C Ab (EIA) Nonreactive Discharge Plan Discharge Anticipated Discharge Date/Time: 05/06/24 17:09 Patient Disposition: Home, Self-Care Discharge Diagnosis: Alcohol intoxication Delirium Alcohol use disorder Alcoholic hepatitis Referrals: Physician,None [Primary Care Provider] - 3 days Discharge Medications: New thiamine HCl (vitamin B1) 100 mg tablet 100 mg PO DAILY Qty: 30 0RF folic acid 1 mg tablet 1 mg PO DAILY Qty: 30 0RF Discharge Orders: Discharge Order (Routine); Ordered 05/06/24 Ordered By: Danielle Edmondson Diet: Advance to usual diet Activity on Discharge: As tolerated Stand Alone Forms: Patient Portal Discharge page, Work/School Release Print Language: [place] Citizen Care Plan Goals: Alcohol use disorder Strongly recommend to abstain from alcohol Returned to check with visual symptoms, unsteady gait, new weakness,or numbness. Health Concerns: Alcohol use disorder Plan of Treatment: Follow-up with primary care physician call for appointment Assessment: as above Patient Instructions: Alcohol Intoxication (ED), Alcoholic Hepatitis (ED) Discharge Date/Time: 05/06/24 17:47
== END 2024-05-06 17:47 | disposition home or self-care (01) | DRG 280 ==
LOC: HO.ED 09:36 → HO.EDOVER 12:36 → HO.IMC 05-06 00:10
PROVIDERS: Emergency Medicine; Admitting Provider Student in an Organized Health Care Education/Training Program; Emergency Provider Emergency Medicine; Visit Provider Hospitalist
DX: K70.10 Alcoholic hepatitis without ascites (principal); G93.41 Metabolic encephalopathy; F10.929 Alcohol use, unspecified with intoxication, unspecified; F17.210 Nicotine dependence, cigarettes, uncomplicated; Z71.6 Tobacco abuse counseling; Y90.7 Blood alcohol level of 200-239 mg/100 ml
CPT/HCPCS: 36415; 70450; 80048; 80053; 80076; 80307; 82140; 83735; 85025; 86704; 86706; 86709; 86803; 87340; 99285; J1650; J2060; J2359; J2560; J3411; J7120

== ENCOUNTER → 2024-05-05 12:28 | Outpatient (BNV) | payer OTHER, SELFPAY | PROVIDERS: Admitting Provider Student in an Organized Health Care Education/Training Program; Emergency Provider Emergency Medicine; Visit Provider Social Worker | DX: F10.90 Alcohol use, unspecified, uncomplicated (principal) | CPT/HCPCS: 99232 ==

== ENCOUNTER → 2024-05-05 12:28 | Outpatient (BNV) | payer OTHER, SELFPAY | PROVIDERS: Admitting Provider Student in an Organized Health Care Education/Training Program; Emergency Provider Emergency Medicine; Visit Provider Student in an Organized Health Care Education/Training Program | DX: G93.41 Metabolic encephalopathy (principal) | CPT/HCPCS: 99223; 99239 ==

== ENCOUNTER 2024-06-01 17:35 | Inpatient (IN) | payer OTHER, SELFPAY ==
[2024-06-01 17:44] VITALS: BP 124/0; PULSE 113; PULSE 80; RESP 20; TEMP 37.2; O2SAT 98; BMI 25.1
--- NOTE | 2024-06-01 17:45 | ED_ITS ---
HPI - General Adult General Chief complaint: Behavioral Concerns Stated complaint: PSYCH Time Seen by Provider: 06/01/24 17:36 Source: patient, EMS and police Mode of arrival: EMS Limitations: no limitations History of Present Illness ED Provider: Nancy COPE HPI narrative: 34-year-old male history of alcoholic hepatitis, macarena presenting to emergency department with police and EMS according to patient he states he was standing in the road not speaking, somebody was concerned about him so they called 911. He denies SI, HI, drugs, alcohol and tobacco. Very limited historian and very guarded. According to behavioral health he was on scene patient has been manic over the last few days, he has been crawling on top of his mother when she was sleeping, periods of catatonia. Denies medical complaints at this time on a section 12 from the community. Related Data Previous Rx's ?Medication ?Instructions ?Recorded folic acid 1 mg tablet 1 mg PO DAILY #30 tabs 05/06/24 thiamine HCl (vitamin B1) 100 mg 100 mg PO DAILY #30 tabs 05/06/24 tablet Allergies Allergy/AdvReac Type Severity Reaction Status Date / Time No Known Allergies Allergy Verified 06/01/24 17:50 Review of Systems 2 Review of Systems: Yes all other systems are reviewed and are negative PMFSH Past Medical History Attestation statement: The following information was validated with the patient. Source: old records reviewed and nursing notes reviewed Medical History No pertinent past medical history Social History Social History Household Members: Family Housing: Apartment Do you presently have visiting nurse or other home services: No Alcohol intake: current Alcohol intake frequency: 3 or more drinks per day Alcohol type: beer and hard liquor Patient Tobacco Use Status: Current everyday Tobacco user Tobacco use type: Cigarette Smoked in Last 30 Days: Yes e-Cigarette/Vaping Use: Never Used Second Hand Smoke Exposure: Yes Use of substances other than those prescribed or required for medical reasons: No Advance Directives: Yes Advance Directives on File: Yes Advance Directives Date on File: 05/07/24 Do you have a plan to hurt others: No Plan service: No Physical Exam ED Vital Signs: Vital Signs - 24 hr 06/01/24 17:44 06/01/24 18:44 Temperature 98.9 F 98.9 F Pulse Rate 113 H 113 H Respiratory Rate 20 20 Pulse Oximetry 98 98 Oxygen Delivery Method Room Air Room Air BMI result Body Mass Index 25.1 vss Appearance: Alert.? Oriented X3.? No acute distress.? Head: Normocephalic, atraumatic, no step-offs or deformities Eyes: Pupils equal, round and reactive to light.? CVS: Normal heart rate and rhythm.? Pulses normal.? Respiratory: No respiratory distress.? Breath sounds normal.? Abdomen: Soft and nontender.? Skin: Skin warm and dry.? Normal skin color.? Normal skin turgor.? Extremities: No lower extremity edema.? No calf ttp. 5/5 strength to bilateral upper and lower extremities Neuro: Oriented X 3.? No motor deficit.? No sensory deficit. CN 2-12 intact Course Reevaluation(s) Reevaluation #1: CBC unremarkable. Chemistry with mild elevation in BUN and creatinine however this appears to be around patient's baseline he is tolerating p.o. will encourage p.o. hydration. Baseline transaminitis likely secondary to chronic alcohol abuse. Urine toxicology positive for barbiturates, negative ethanol. Pending evaluation by care team. At this time patient to be placed into observation to allow more time to be evaluated by the behavioral health team. At time observation started patient common cooperative no acute distress will continue to monitor Time: 19:26 Medications Administered Discontinued Medications Generic Name Dose Route Start Last Admin Trade Name Freq PRN Reason Stop Dose Admin Diphenhydramine HCl 50 mg 06/01/24 17:43 06/01/24 17:55 Diphenhydramine Hcl 25 Mg Capsule PO 06/01/24 17:44 50 mg ONCE ONE Administration Haloperidol 10 mg 06/01/24 17:43 06/01/24 17:55 Haloperidol 5 Mg Tablet PO 06/01/24 17:44 10 mg ONCE ONE Administration Lorazepam 2 mg 06/01/24 17:43 06/01/24 17:55 Lorazepam 1 Mg Tablet PO 06/01/24 17:44 2 mg ONCE ONE Administration Medical Decision Making Medical Decision Making MDM Narrative: 34 year old male presents w/ manic behavior on a 12 on arrival. No medical complaints. Calm and cooperative. PE flat affect. History and physical exam concerning for manic episode with possible fluctuating catatonia however not at this time. Schizoaffective disorder, schizophrenia and bipolar disorder remain on the differential. Will rule out metabolic derangements although unlikely. Plan medical clearance evaluation by behavioral health team. Patient does seem on adjuvant agitated upon arrival, he is following commands and being cooperative I asked him if he would like something to take the edge off he states he would like something he feels very uncomfortable in this situation. Hx of aggressive behavior per [facility] Differential Diagnosis Differential Diagnoses: The differential diagnosis associated with the presentation includes History and physical exam concerning for manic episode with possible fluctuating catatonia however not at this time. Schizoaffective disorder, schizophrenia and bipolar disorder remain on the differential. Will rule out metabolic derangements although unlikely. Admission/Observation Consideration of admission/observation: Escalation of care including admission/observation considered Likely Lab Data MDM Lab Attestation statement: I reviewed the patient's lab results. 06/01/24 18:24 06/01/24 18:24 Labs: Lab Results 06/01/24 06/01/24 Range/Units 18:24 18:46 WBC 5.4 (4.8-10.8) X10*3/uL RBC 4.77 (4.60-5.80) X10*6/uL Hgb 15.3 (14.0-18.0) g/dl Hct 42.6 (42.0-52.0) % MCV 89.3 (80.0-98.0) fL MCH 32.1 (27.0-33.0) pg MCHC 35.9 (31.0-36.0) g/dl RDW 12.7 (11.0-16.0) % Plt Count 151 L (160-400) X10*3/uL MPV 10.1 (9.4-12.4) fL Immature Gran % (Auto) 0.4 (0.0-0.4) % Neut % (Auto) 65.5 (45-73) % Lymph % (Auto) 13.8 L (20-40) % Fleming % (Auto) 17.5 H (2-11) % Eos % (Auto) 1.7 (0-4) % Baso % (Auto) 1.1 (0-2) % Lymph # (Auto) 0.8 L (1.2-4.9) X10*3/uL Fleming # (Auto) 1.0 (0.1-1.2) X10*3/uL Eos # (Auto) 0.1 (0.0-0.4) X10*3/uL Baso # (Auto) 0.1 (0.0-0.2) X10*3/uL Abs Immat Gran (auto) 0.02 (0.00-0.03) X10*3/uL Absolute Neuts (auto) 3.6 (2.0-8.3) x10*3/uL Absolute Nucleated RBC 0.000 (0.0-0.012) X10*3/uL Nucleated RBC % (auto) 0.0 (0.0-0.2) /100WBC Sodium 138 (135-145) mmol/L Potassium 4.1 (3.3-5.1) mmol/L Chloride 102 (96-108) mmol/L Carbon Dioxide 25 (22-29) mmol/L Anion Gap 15 (12-20) BUN 20 H (9-16) mg/dL Creatinine 1.15 (0.5-1.4) mg/dL Estim Creat Clear Calc 98.4 Estimated GFR > 60 Random Glucose 104 (60-115) mg/dL Calcium 9.7 (8.4-10.2) mg/dL Magnesium 2.0 (1.6-2.6) mg/dL Total Bilirubin 0.7 (0.0-1.0) mg/dL AST 146 H (5-37) U/L ALT 165 H (0-40) U/L Alkaline Phosphatase 59 (39-117) U/L Total Protein 7.7 (6.5-8.0) g/dL Albumin 4.6 (3.5-5.0) g/dL Urine Opiates Screen Not Detected (Not Detect) Ur Buprenorphine Scrn Not Detected (Not Detect) ng/mL Ur Oxycodone Screen Not Detected (Not Detect) ng/mL Urine Methadone Screen Not Detected (Not Detect) ng/mL Urine Fentanyl Screen Not Detected (Not Detect) Ur Barbiturates Screen POSITIVE H (Not Detect) Ur Phencyclidine Scrn Not Detected (Not Detect) Ur Amphetamines Screen Not Detected (Not Detect) U Benzodiazepines Scrn Not Detected (Not Detect) Urine Cocaine Screen Not Detected (Not Detect) U Marijuana (THC) Screen Not Detected (Not Detect) Ethyl Alcohol < 10 mg/dL External Record Review External record reviewed: Inpatient record, Office record, Outpatient record, Prior outpatient labs, Prior outpatient radiology, Primary care record and Outside ED record Chronic Conditions Patient?s care impacted by: Other (alcohol use disorder ) Critical Care Time Critical Care Time Critical Care Time: Yes Total Critical Care Time: 35 Attestation: I attest to this time spent taking care of the patient, obtaining history, physical, reviewing labs, imaging, treatment of patients condition +/- specialist/hospitalist consult Discharge Plan Discharge Clinical Impression: Macarena Patient Disposition: Still a Patient Prescriptions: No Action thiamine HCl (vitamin B1) 100 mg tablet 100 mg PO DAILY Qty: 30 0RF folic acid 1 mg tablet 1 mg PO DAILY Qty: 30 0RF Print Language: Fijian
[2024-06-01] MEDS: diphenhydrAMINE HCL 25 MG CAPSULE 50 MG PO (17:55)
[2024-06-01] MEDS: LORazepam 1 MG TABLET 2 MG PO (17:55)
[2024-06-01] MEDS: HaloperidoL 5 MG TABLET 10 MG PO (17:55)
[2024-06-01 18:29] LABS: MANUAL DIFF FLAG NO
[2024-06-01 18:44] VITALS: PULSE 113; RESP 20; TEMP 37.2; O2SAT 98
[2024-06-01 18:45] LABS: Alanine Aminotransferase 165 U/L (0-40); Albumin Level 4.6 g/dL (3.5-5.0); Alkaline Phosphatase 59 U/L (39-117); Anion Gap 15 (12-20); Aspartate Amino Transferase 146 U/L (5-37); Bilirubin Total 0.7 mg/dL (0.0-1.0); Blood Urea Nitrogen 20 mg/dL (9-16); Calcium 9.7 mg/dL (8.4-10.2); Carbon Dioxide 25 mmol/L (22-29); Chloride 102 mmol/L (96-108); Creatinine Clr Calc Pharmacy 98.4; Estimated Glomerular Filt Rate > 60; Ethanol < 10 mg/dL; Glucose Random 104 mg/dL (60-115); Potassium 4.1 mmol/L (3.3-5.1); Sodium 138 mmol/L (135-145); Total Protein 7.7 g/dL (6.5-8.0)
--- NOTE | 2024-06-01 18:49 | PC.NURSE ---
Pt comes to ED today for crisis eval. Pt is a [facility] client, per report Pt was presenting with manic behaviors and today was noted to be catatonic. VSS. Pt is alert, oriented and cooperative. Reports vague ETOH use, cannot given specifics but reports large intake when he does use. Denies drug use. Security placed Pts belongings in [facility] locker.
[2024-06-01 18:52] LABS: Basophils Absolute Auto 0.1 X10*3/uL (0.0-0.2); Basophils Percent Auto 1.1 % (0-2); Eosinophils Absolute Auto 0.1 X10*3/uL (0.0-0.4); Eosinophils Percent Auto 1.7 % (0-4); Hematocrit 42.6 % (42.0-52.0); Hemoglobin 15.3 g/dl (14.0-18.0); Imm Gran Abs Auto 0.02 X10*3/uL (0.00-0.03); Imm Gran Pct Auto 0.4 % (0.0-0.4); Lymphocytes Absolute Auto 0.8 X10*3/uL (1.2-4.9); Lymphocytes Percent Auto 13.8 % (20-40); Mean Corpuscular HGB Conc 35.9 g/dl (31.0-36.0); Mean Corpuscular Hemoglobin 32.1 pg (27.0-33.0); Mean Corpuscular Volume 89.3 fL (80.0-98.0); Mean Platelet Volume 10.1 fL (9.4-12.4); Monocytes Percent Auto 17.5 % (2-11); Neutrophils Absolute Auto 3.6 x10*3/uL (2.0-8.3); Neutrophils Percent Auto 65.5 % (45-73); Platelet Count 151 X10*3/uL (160-400); Red Blood Count 4.77 X10*6/uL (4.60-5.80); Red Cell Distribution Width 12.7 % (11.0-16.0); White Blood Count 5.4 X10*3/uL (4.8-10.8)
[2024-06-01 18:59] LABS: Appearance Urine Clear; Color Urine Dark Yellow; Glucose Urine UA Negative (Negative); Leukocyte Esterase Urine Trace (Negative); Nitrite Urine Negative (Negative); PH 5.5 (5.0-9.0); Specific Gravity - Urine >= 1.030 (1.005-1.025); UMIC TRIGGER UACC YES; Urine Blood Negative (Negative); Urine Ketones 15 mg/dL (Negative); Urine Protein 30 (1+) mg/dL (Neg-Trace)
[2024-06-01 19:04] LABS: Amphetamine Screen Urine Not Detected (Not Detect); Barbiturates, Urine POSITIVE (Not Detect); Benzodiazepines Screen Urine Not Detected (Not Detect); Buprenorphine Scr Not Detected (Not Detect); Cannabinoid Screen Urine Not Detected (Not Detect); Cocaine Screen Urine Not Detected (Not Detect); Fentanyl, urine Not Detected (Not Detect); Methadone Screen, Urine Not Detected (Not Detect); Opiate Screen Urine Not Detected (Not Detect); Oxycodone Screen Urine Not Detected (Not Detect); Phencyclidine Screen Urine Not Detected (Not Detect)
[2024-06-01 19:39] LABS: Bacteria Urine None Seen (None Seen); RBC Urine 0-2 /HPF (0-2); WBC Urine 0-5 /HPF (0-5)
[2024-06-01 21:00] VITALS: BP 120/79; PULSE 76; RESP 18; TEMP 37.1; O2SAT 99
--- NOTE | 2024-06-02 | ECG_ITS ---
Test Reason : MED CLEARNCE Blood Pressure : / mmHG Vent. Rate : 077 BPM Atrial Rate : 077 BPM P-R Int : 156 ms QRS Dur : 092 ms QT Int : 398 ms P-R-T Axes : 000 038 023 degrees QTc Int : 450 ms Normal sinus rhythm Normal ECG No previous ECGs available Referred By: Nick Batres Electronically Signed By:LUANN FREEMAN
[2024-06-02 05:58] VITALS: BP 115/73; PULSE 70; RESP 16; TEMP 36.8; O2SAT 97
--- NOTE | 2024-06-02 09:39 | MHC.CARE ---
Pt coninues to present as an imminent risk and meet the criteria for IPLOC. He will remain in the ED on a Section 12a as IPLOC
[2024-06-02] MEDS: Nicotine Polacrilex 2 MG GUM BUCCAL (10:48)
--- NOTE | 2024-06-02 11:06 | PHA.MEDREC ---
Addendum entered by Asif Saucedo 06/02/24 11:08: reviewed Original Note: Pharmacy Consult ? Medication Reconciliation Pharmacy has completed the medication reconciliation. Patient states he is not taking any home medications.
--- NOTE | 2024-06-02 23:07 | PC.NURSE ---
up ad cortes to rest room
--- NOTE | 2024-06-02 23:11 | PC.NURSE ---
patient provided with ice water and lópez rhys, declined offered sleep medication
[2024-06-02 23:31] VITALS: BP 141/99; PULSE 78; RESP 18; O2SAT 97
--- NOTE | 2024-06-03 04:40 | PC.NURSE ---
client appears restless in bed
--- NOTE | 2024-06-03 04:42 | PC.NURSE ---
patient offered medication to get back to sleep, client declined (also drinks, patient was still supplied)
[2024-06-03] MEDS: Nicotine Polacrilex 2 MG GUM BUCCAL (08:20)
[2024-06-03 13:09] VITALS: BMI 25.1
[2024-06-03 13:24] VITALS: BP 126/81; PULSE 86; RESP 18; O2SAT 98
--- NOTE | 2024-06-03 14:13 | PC.ADMIT ---
Pt arrived to the unit at [address] [facility] ED POD. Pt arrived via wheelchair with staff & security. Skin check/contraband search completed. Pt Arrived on a 12A. Pt refused to sign a CV. Pt placed on a 12B. Pt was brought into the ER via EMS & police d/t catatonic behavior at home. Pt was assessed in the community the day prior for manic behavior. Pt was reevaluated at home the next day by [facility] d/t catatonic behavior. According to patients mother, Pt had an angry outburst where he yelled at his mother that she was taking his things. After patient yelled he then stood in the same spot in the kitchen. Patient not moving, not speaking or responding. Patient continued to be in the same position hours later so mother called police. Patient also made passive HI statements towards mother and at one point during manic episode patient crawled into bed with his mother. Pt became aggressive in ambulance when Patient came out of his catatonic state . Pt recently moved to [place] from [place]. Pt does have a history of incarceration for resisting arrest, disorderly conduct, and multiple DUIs. Pt went to a rehab facility in [place] as part of his probation/sentence. Pt does drink 2-3 times a week about 5 + alcoholic beverages. Pt is a 1/2 [employer] smoker. Tox screen positive for barbiturates. Pt refused an addiction consult. Smoking cessation consult placed. Pt does not currently take any medications. Pt does not have a therapist or psychiatrist. Last inpatient admission was when patient was a child. Legals signed. Admission completed. Pt oriented to unit.
[2024-06-03] MEDS: LORazepam 1 MG TABLET PO (16:20)
[2024-06-03] MEDS: Gabapentin 300 MG CAPSULE PO (16:20)
[2024-06-03 16:23] VITALS: BP 122/74; PULSE 87; RESP 17; TEMP 36.9; O2SAT 97
--- NOTE | 2024-06-04 04:42 | PC.NURSE ---
Patient refuses all vital signs. When assessing CIWA, patient will answer questions but does not allow vital signs.
--- NOTE | 2024-06-04 09:52 | HO.PSYADMNOT ---
HPI Date of Service: 06/04/24 Chief Complaint: Manic Sources of Information: patient interviewed, chart reviewed and crisis/core team assessment reviewed Additional Sources of Information: Seen by psychiatric consult on 05/06/2024 during which time he was with bizarre, catatonic behaviors, confused, no recollection of previous day staring at the wall, and treated for alcoholism with phenobarbital. HPI Subjective Notes: Noble Warning, Conditional Voluntary and Section 12B Narrative: Patient is a 34-year-old male with history of bizarre behaviors in the community, alcoholism, alcohol hepatitis, who presents from the community after his mother called crisis for patient's bizarre and catatonic behavior. Patient is irritable at first, but willing to talk. He remembers that he was standing still, not talking to anyone...he denies that it was for hours. He said he's not sure why he did this, other than he did not want to move or talk. He agrees that it was bizarre but says he's never done anything like that before in his life and it was just because he had been drinking, that it was substance related only and not psychosis... Electronic Assembly reminded pt of time this past April when admitted to hospital for detox, which he acknowledged but felt this strengthened his position saying it was only in the context of alcohol abuse and detox. Pt denies any AVH, paranoid delisional thoughts, SI or HI; he denies hx of manic episodes; denies any other substance abuse and agrees Barbituates in UDS likely do to phenobarb treatment for detox. Pt denies that he was pacing the house and not sleeping; he denies that he got into bed with his mother or made an threatening remark. He does however acknowledge that he may have unintentionally scared her and that he may have black outs and not fully remember his actions. He endorses Depression which has been worsening past few months since his father and he moved to [place] but says he's never been on psych meds before and does not want them. He does not want a program for help w/ sobriety, but will take resources. -he denies that his is experiencing any withdrawal Per ED Crisis report: Crisis has been out to house 2 times this week. mother reports that patient has been acting bizarrely, hardly eating, up all night, pacing around the house; then mother reported patient was yelling and accusing his her of taking his things, made a passive HI statement towards his mother; after yelling, stood in 1 spot in the kitchen, not moving or responding For hours and so crisis was called the 2nd time and patient remained standing still, not moving, talking or responding, including to police. His mother reports that patient crawled into bed with her and was lying on top of her and that both she and her other son are scared of his behavior. On arriving to the ED patient had no recollection of events that occurred the days prior and up to arriving at the emergency room. Past Psychiatric History: Denies any past psychiatric hospitalizations except for when he was a child Medical Evaluation Reviewed: Yes [facility] Medical History (Updated 06/05/24 @ 12:06 by Soy Gale MD) MDD (major depressive disorder), recurrent episode, moderate No pertinent past medical history Family History: Father: Alcoholism Paternal family history of substance abuse Social History: [facility] and brother and Almo Patient was living with his father in [place] until a few months ago when his father from alcohol-related complications; he then came to live with his mother and brother -history of incarceration for resisting arrest, disorderly conduct, and multiple DUIs. Substance History: Daily alcohol abuse; multiple DUIs; went to a rehab facility in [place] as part of his probation/sentence Trauma History: Defer Diagnostics Vital Signs (24Hr): Vital Signs - 24 hr 06/03/24 13:24 06/03/24 16:23 Temperature 98.4 F Pulse Rate 86 87 Respiratory Rate 18 17 Blood Pressure 126/81 122/74 Pulse Oximetry 98 97 Oxygen Delivery Method Room Air Room Air BMI result Body Mass Index 25.1 Labs 06/01/24 18:24 06/01/24 18:24 Meds/Allergies Meds Home Medications ?Medication ?Instructions ?Recorded ?Confirmed ?Type No Known Home Meds 06/02/24 06/02/24 History Allergies Allergies Allergy/AdvReac Type Severity Reaction Status Date / Time No Known Allergies Allergy Verified 06/01/24 17:50 Mental Status Exam Mental Status Exam Narrative: Appearance: wearing hospital gown, fair hygiene, in NAD Behavior: initially guarded but can be cooperative, irritable edge Psychomotor: some psychomotor retardation noted Speech: clear, normal rate/rhythm/volume, spontaneous TP:goal oriented, linear TC: irritated at admission Mood: depressed Affect: irritable SI: denies HI: denies VH/AH: denies and no overt signs Delusions: denies and no overt delusional content Insight/judgment: impaired Memory/cog: alert, oriented x 4. Assessment & Plan Assessment & Plan (1) Brief psychotic disorder with catatonia: Status: Acute Code(s): F23 - Brief psychotic disorder; F06.1 - Catatonic disorder due to known physiological condition (2) MDD (major depressive disorder), recurrent episode, moderate: Status: Acute Code(s): F33.1 - Major depressive disorder, recurrent, moderate (3) Alcoholic hepatitis: Status: Acute Qualifiers: Ascites presence: without ascites Qualified Code(s): K70.10 - Alcoholic hepatitis without ascites Code(s): K70.10 - Alcoholic hepatitis without ascites (4) Alcohol use disorder: Status: Inactive Code(s): F10.90 - Alcohol use, unspecified, uncomplicated Plan HPI: Patient is a 34-year-old male with history of bizarre behaviors in the community, alcoholism, alcohol hepatitis, who presents from the community after his mother called crisis for patient's bizarre and catatonic behavior. Patient is irritable at first, but willing to talk. He remembers that he was standing still, not talking to anyone...he denies that it was for hours. He said he's not sure why he did this, other than he did not want to move or talk. He agrees that it was bizarre but says he's never done anything like that before in his life and it was just because he had been drinking, that it was substance related only and not psychosis... Electronic Assembly reminded pt of time this past April when admitted to hospital for detox, which he acknowledged but felt this strengthened his position saying it was only in the context of alcohol abuse and detox. Pt denies any AVH, paranoid delisional thoughts, SI or HI; he denies hx of manic episodes; denies any other substance abuse and agrees Barbituates in UDS likely do to phenobarb treatment for detox. Pt denies that he was pacing the house and not sleeping; he denies that he got into bed with his mother or made an threatening remark. He does however acknowledge that he may have unintentionally scared her and that he may have black outs and not fully remember his actions. He endorses Depression which has been worsening past few months since his father and he moved to [place] but says he's never been on psych meds before and does not want them. He does not want a program for help w/ sobriety, but will take resources. -he denies that his is experiencing any withdrawal Per ED Crisis report: Crisis has been out to house 2 times this week. mother reports that patient has been acting bizarrely, hardly eating, up all night, pacing around the house; then mother reported patient was yelling and accusing his her of taking his things, made a passive HI statement towards his mother; after yelling, stood in 1 spot in the kitchen, not moving or responding For hours and so crisis was called the 2nd time and patient remained standing still, not moving, talking or responding, including to police. His mother reports that patient crawled into bed with her and was lying on top of her and that both she and her other son are scared of his behavior. On arriving to the ED patient had no recollection of events that occurred the days prior and up to arriving at the emergency room. Formulation/clinical reasoning: Patient currently organized in behavioral and speech; no signs of psychosis, brigido or catatonia. Patient had similar presentation about a month ago which also seemed to resolve with detox. Patient told ED staff that he drink 2-3 times a week, about 5 + alcoholic beverages. On admission, His Tox screen positive for barbiturates; while this could possibly be a remnant from phenobarb taper a few weeks ago, patient is a limited historian with history of severe alcoholism and so on arrival to unit, started him on Ativan 1 mg t.i.d. scheduled in addition to CIWA with p.r.n. Ativan as Ativan scheduled may also help with catatonic symptoms. Today, he denies w/drawal and does not want scheduled meds of any kind. Will continue to assess and alter meds as indicated impression: currently organized and so far it seems that manic/psychotic/catatonic symptoms have resolved; quite possibly substance induced behaviors but too soon tell and pt's behaviors and mothers concerns report warrant admission and monitoring. -dx: brief psychotic disorder but provisional and substance induced remains high on differential list; has MDD as well Plan: Twelve B Q 15 minute checks initially Ativan 1 mg t.i.d. for combination of alcohol withdrawal and concern for catatonic symptoms -however, if remains w/out symptoms will dc Gabapentin 300mg tid for detox; will monitor CIWA with p.r.n. Ativan Gather collateral Patient educated on: diagnosis, medication risk/benefits and substance abuse Informed Consent: understands, does not understand and further education needed Reason for continued inpatient stay Substantial Risk for: rapid decompensation Statement Statement: I have reviewed the history and physical and performed a pertinent examination on my patient. No changes have occurred unless specified. If the History and Physical was not performed prior to admission, the Hospitalist's service will be consulted for completing the admission physical. Time Spent With Patient Time: Total time managing care of this patient today ____ minutes.
--- NOTE | 2024-06-04 12:01 | PC.NURSE ---
pt declined CIWA assessment and denies any signs/symptoms of withdrawal. No signs or symptoms observed by this marketing copywriter.
[2024-06-04] MEDS: Nicotine Polacrilex 2 MG GUM 4 MG BUCCAL (18:18)
[2024-06-04 20:00] VITALS: RESP 16
--- NOTE | 2024-06-05 08:55 | P.PNPSI_ITS ---
Documented by User: Kylie Rivas, [employer] 06/05/24 19:04 Subjective Subjective Date of Service: 06/05/24 Reason For Visit: Manic Interim History: I am doing OK. This place is OK, I feel more comfortable . Briefly engaged with tw. Denies issues or concerns. States he is feeling OK. Remains somewhat guarded. Medication Compliance: Yes Side effects from medications: No Review of Systems Acute medical concerns: No Review of Systems Review of Systems Yes all other systems are reviewed and are negative Mental Status Exam Mental Status Exam Patient Appearance: Appropriate Patient Orientation: Person, Place, Time and Situation Level of Consciousness: Alert Patient Behavior: Guarded, Talkative and Good Eye Contact Mood Description: Constricted Affect Description: Constricted Patient Cognition Impaired: No Ability to Follow Directions: Good Speech Pattern: Spontaneous Speech Thought Process: Distracted Thought Content: positive for Circumstantial Judgement: Fair Diagnostics Vital Signs (24Hr): Vital Signs - 24 hr 06/04/24 20:00 Respiratory Rate 16 BMI result Body Mass Index 25.1 Labs 06/01/24 18:24 06/01/24 18:24 Medications Medications Current Medications Acetaminophen (Acetaminophen 325 Mg Tablet) 650 mg PO Q6H PRN PRN Reason: Headache/Pain Mild Scale (1-3) Al Hydroxide/Mg Hydroxide (Magnesium Hydrox/Alum Hydrox 30 Ml Oral.Susp) 30 ml PO Q6H PRN PRN Reason: Heartburn/Nausea Folic Acid (Folic Acid 1 Mg Tablet) 1 mg PO DAILY [facility] Last Admin: 06/05/24 08:46 Dose: Not Given Gabapentin (Gabapentin 300 Mg Capsule) 300 mg PO TID [facility] Last Admin: 06/05/24 08:46 Dose: Not Given Lorazepam (Lorazepam 1 Mg Tablet) 1 mg PO TID [facility] Last Admin: 06/05/24 08:46 Dose: Not Given Lorazepam (Lorazepam 1 Mg Tablet) 2 mg PO Q2H PRN PRN Reason: CIWA 11 and above Lorazepam (Lorazepam 1 Mg Tablet) 1 mg PO Q2H PRN PRN Reason: CIWA 6-10 Magnesium Hydroxide (Milk Of Magnesia 30 Ml Oral.Susp) 30 ml PO DAILY PRN PRN Reason: Constipation Multivitamins/Vitamin C (Multivitamin Tablet) 1 tab PO DAILY [facility] Last Admin: 06/05/24 08:47 Dose: Not Given Nicotine (Nicotine 21 Mg Patch.Td24) 21 mg TRANSDERMA DAILY PRN PRN Reason: smoking cessation Nicotine Polacrilex (Nicotine Polacrilex 2 Mg Gum) 4 mg BUCCAL Q2H PRN PRN Reason: Nicotine Cravings Last Admin: 06/04/24 18:18 Dose: 4 mg Olanzapine (Olanzapine 5 Mg Tablet) 5 mg PO TID PRN PRN Reason: agitation Thiamine HCl (Thiamine Hcl 100 Mg Tablet) 100 mg PO DAILY PO Last Admin: 06/05/24 08:47 Dose: Not Given Trazodone HCl (Trazodone Hcl 50 Mg Tablet) 50 mg PO BEDTIME MRX1 PRN PRN Reason: Insomnia Allergies Allergies Allergy/AdvReac Type Severity Reaction Status Date / Time No Known Allergies Allergy Verified 06/01/24 17:50 Assessment & Plan Assessment & Plan (1) Brief psychotic disorder with catatonia: Status: Acute Code(s): F23 - Brief psychotic disorder; F06.1 - Catatonic disorder due to known physiological condition (2) MDD (major depressive disorder), recurrent episode, moderate: Status: Acute Code(s): F33.1 - Major depressive disorder, recurrent, moderate Plan HPI: Patient is a 34-year-old male with history of bizarre behaviors in the community, alcoholism, alcohol hepatitis, who presents from the community after his mother called crisis for patient's bizarre and catatonic behavior. Patient is irritable at first, but willing to talk. He remembers that he was standing still, not talking to anyone...he denies that it was for hours. He said he's not sure why he did this, other than he did not want to move or talk. He agrees that it was bizarre but says he's never done anything like that before in his life and it was just because he had been drinking, that it was substance related only and not psychosis... Process Stripper reminded pt of time this past April when admitted to hospital for detox, which he acknowledged but felt this strengthened his position saying it was only in the context of alcohol abuse and detox. Pt denies any AVH, paranoid delisional thoughts, SI or HI; he denies hx of manic episodes; denies any other substance abuse and agrees Barbituates in UDS likely do to phenobarb treatment for detox. Pt denies that he was pacing the house and not sleeping; he denies that he got into bed with his mother or made an threatening remark. He does however acknowledge that he may have unintentionally scared her and that he may have black outs and not fully remember his actions. He endorses Depression which has been worsening past few months since his father and he moved to [place] but says he's never been on psych meds before and does not want them. He does not want a program for help w/ sobriety, but will take resources. -he denies that his is experiencing any withdrawal Per ED Crisis report: Crisis has been out to house 2 times this week. mother reports that patient has been acting bizarrely, hardly eating, up all night, pacing around the house; then mother reported patient was yelling and accusing his her of taking his things, made a passive HI statement towards his mother; after yelling, stood in 1 spot in the kitchen, not moving or responding For hours and so crisis was called the 2nd time and patient remained standing still, not moving, talking or responding, including to police. His mother reports that patient crawled into bed with her and was lying on top of her and that both she and her other son are scared of his behavior. On arriving to the ED patient had no recollection of events that occurred the days prior and up to arriving at the emergency room. Formulation/clinical reasoning: Patient currently organized in behavioral and speech; no signs of psychosis, brigido or catatonia. Patient had similar presentation about a month ago which also seemed to resolve with detox. Patient told ED staff that he drink 2-3 times a week, about 5 + alcoholic beverages. On admission, His Tox screen positive for barbiturates; while this could possibly be a remnant from phenobarb taper a few weeks ago, patient is a limited historian with history of severe alcoholism and so on arrival to unit, started him on Ativan 1 mg t.i.d. scheduled in addition to CIWA with p.r.n. Ativan as Ativan scheduled may also help with catatonic symptoms. Today, he denies w/drawal and does not want scheduled meds of any kind. Will continue to assess and alter meds as indicated impression: currently organized and so far it seems that manic/psychotic/catatonic symptoms have resolved; quite possibly substance induced behaviors but too soon tell and pt's behaviors and mothers concerns report warrant admission and monitoring. -dx: brief psychotic disorder but provisional and substance induced remains high on differential list; has MDD as well Plan: Twelve B Q 15 minute checks initially Ativan 1 mg t.i.d. for combination of alcohol withdrawal and concern for catatonic symptoms -however, if remains w/out symptoms will dc Gabapentin 300mg tid for detox; will monitor CIWA with p.r.n. Ativan Gather collateral 06/05: Continue tx plan. Reason for continued inpatient stay Substantial Risk for: rapid decompensation Time Spent With Patient Time: Total time managing care of this patient today ____ minutes. Documented by User: Soy Gale MD 06/07/24 09:30 Subjective Subjective Reason For Visit: Manic Diagnostics Labs 06/01/24 18:24 06/01/24 18:24 Assessment & Plan Assessment & Plan (1) Brief psychotic disorder with catatonia: Status: Acute Code(s): F23 - Brief psychotic disorder; F06.1 - Catatonic disorder due to known physiological condition (2) MDD (major depressive disorder), recurrent episode, moderate: Status: Acute Code(s): F33.1 - Major depressive disorder, recurrent, moderate Plan HPI: Patient is a 34-year-old male with history of bizarre behaviors in the community, alcoholism, alcohol hepatitis, who presents from the community after his mother called crisis for patient's bizarre and catatonic behavior. Patient is irritable at first, but willing to talk. He remembers that he was standing still, not talking to anyone...he denies that it was for hours. He said he's not sure why he did this, other than he did not want to move or talk. He agrees that it was bizarre but says he's never done anything like that before in his life and it was just because he had been drinking, that it was substance related only and not psychosis... Process Stripper reminded pt of time this past April when admitted to hospital for detox, which he acknowledged but felt this strengthened his position saying it was only in the context of alcohol abuse and detox. Pt denies any AVH, paranoid delisional thoughts, SI or HI; he denies hx of manic episodes; denies any other substance abuse and agrees Barbituates in UDS likely do to phenobarb treatment for detox. Pt denies that he was pacing the house and not sleeping; he denies that he got into bed with his mother or made an threatening remark. He does however acknowledge that he may have unintentionally scared her and that he may have black outs and not fully remember his actions. He endorses Depression which has been worsening past few months since his father and he moved to [place] but says he's never been on psych meds before and does not want them. He does not want a program for help w/ sobriety, but will take resources. -he denies that his is experiencing any withdrawal Per ED Crisis report: Crisis has been out to house 2 times this week. mother reports that patient has been acting bizarrely, hardly eating, up all night, pacing around the house; then mother reported patient was yelling and accusing his her of taking his things, made a passive HI statement towards his mother; after yelling, stood in 1 spot in the kitchen, not moving or responding For hours and so crisis was called the 2nd time and patient remained standing still, not moving, talking or responding, including to police. His mother reports that patient crawled into bed with her and was lying on top of her and that both she and her other son are scared of his behavior. On arriving to the ED patient had no recollection of events that occurred the days prior and up to arriving at the emergency room. Formulation/clinical reasoning: Patient currently organized in behavioral and speech; no signs of psychosis, brigido or catatonia. Patient had similar presentation about a month ago which also seemed to resolve with detox. Patient told ED staff that he drink 2-3 times a week, about 5 + alcoholic beverages. On admission, His Tox screen positive for barbiturates; while this could possibly be a remnant from phenobarb taper a few weeks ago, patient is a limited historian with history of severe alcoholism and so on arrival to unit, started him on Ativan 1 mg t.i.d. scheduled in addition to CIWA with p.r.n. Ativan as Ativan scheduled may also help with catatonic symptoms. Today, he denies w/drawal and does not want scheduled meds of any kind. Will continue to assess and alter meds as indicated impression: currently organized and so far it seems that manic/psychotic/catatonic symptoms have resolved; quite possibly substance induced behaviors but too soon tell and pt's behaviors and mothers concerns report warrant admission and monitoring. -dx: brief psychotic disorder but provisional and substance induced remains high on differential list; has MDD as well Plan: Twelve B Q 15 minute checks initially Ativan 1 mg t.i.d. for combination of alcohol withdrawal and concern for catatonic symptoms -however, if remains w/out symptoms will dc Gabapentin 300mg tid for detox; will monitor CIWA with p.r.n. Ativan Gather collateral
[2024-06-05] MEDS: Nicotine Polacrilex 2 MG GUM 4 MG BUCCAL (12:01)
[2024-06-05 20:45] VITALS: RESP 16
--- NOTE | 2024-06-06 09:01 | P.PNPSI_ITS ---
Subjective Subjective Date of Service: 06/06/24 Reason For Visit: Manic Interim History: CIWA discontinued. Pt reports feeling improved. He reports feeling comfortable on the unit. He spend most of the afternoon sitting at the end of the la, covered with blankets, talking with us through the blankets. He denies sx of concern. He is available to team and peers, interactive, yet on the periphery of the milieu. Medication Compliance: Yes Side effects from medications: No Attending Groups: No Review of Systems Acute medical concerns: No Mental Status Exam Mental Status Exam Patient Appearance: Appropriate Patient Orientation: Person, Place, Time and Situation Level of Consciousness: Alert Patient Behavior: Guarded, Talkative and Good Eye Contact Mood Description: Constricted Affect Description: Constricted Patient Cognition Impaired: No Ability to Follow Directions: Good Speech Pattern: Spontaneous Speech Thought Process: Distracted Thought Content: positive for Circumstantial Judgement: Fair Diagnostics Vital Signs (24Hr): Vital Signs - 24 hr 06/05/24 20:45 Respiratory Rate 16 BMI result Body Mass Index 25.1 Labs 06/01/24 18:24 06/01/24 18:24 Medications Medications Current Medications Acetaminophen (Acetaminophen 325 Mg Tablet) 650 mg PO Q6H PRN PRN Reason: Headache/Pain Mild Scale (1-3) Al Hydroxide/Mg Hydroxide (Magnesium Hydrox/Alum Hydrox 30 Ml Oral.Susp) 30 ml PO Q6H PRN PRN Reason: Heartburn/Nausea Folic Acid (Folic Acid 1 Mg Tablet) 1 mg PO DAILY [facility] Last Admin: 06/05/24 08:46 Dose: Not Given Lorazepam (Lorazepam 1 Mg Tablet) 2 mg PO Q2H PRN PRN Reason: CIWA 11 and above Lorazepam (Lorazepam 1 Mg Tablet) 1 mg PO Q2H PRN PRN Reason: CIWA 6-10 Magnesium Hydroxide (Milk Of Magnesia 30 Ml Oral.Susp) 30 ml PO DAILY PRN PRN Reason: Constipation Multivitamins/Vitamin C (Multivitamin Tablet) 1 tab PO DAILY [facility] Last Admin: 06/05/24 08:47 Dose: Not Given Nicotine (Nicotine 21 Mg Patch.Td24) 21 mg TRANSDERMA DAILY PRN PRN Reason: smoking cessation Nicotine Polacrilex (Nicotine Polacrilex 2 Mg Gum) 4 mg BUCCAL Q2H PRN PRN Reason: Nicotine Cravings Last Admin: 06/05/24 12:01 Dose: 4 mg Olanzapine (Olanzapine 5 Mg Tablet) 5 mg PO TID PRN PRN Reason: agitation Thiamine HCl (Thiamine Hcl 100 Mg Tablet) 100 mg PO DAILY PO Last Admin: 06/05/24 08:47 Dose: Not Given Trazodone HCl (Trazodone Hcl 50 Mg Tablet) 50 mg PO BEDTIME MRX1 PRN PRN Reason: Insomnia Allergies Allergies Allergy/AdvReac Type Severity Reaction Status Date / Time No Known Allergies Allergy Verified 06/01/24 17:50 Assessment & Plan Assessment & Plan (1) Brief psychotic disorder with catatonia: Status: Acute Code(s): F23 - Brief psychotic disorder; F06.1 - Catatonic disorder due to known physiological condition (2) MDD (major depressive disorder), recurrent episode, moderate: Status: Acute Code(s): F33.1 - Major depressive disorder, recurrent, moderate Plan HPI: Patient is a 34-year-old male with history of bizarre behaviors in the community, alcoholism, alcohol hepatitis, who presents from the community after his mother called crisis for patient's bizarre and catatonic behavior. Patient is irritable at first, but willing to talk. He remembers that he was standing still, not talking to anyone...he denies that it was for hours. He said he's not sure why he did this, other than he did not want to move or talk. He agrees that it was bizarre but says he's never done anything like that before in his life and it was just because he had been drinking, that it was substance related only and not psychosis... Document Control Associate reminded pt of time this past April when admitted to hospital for detox, which he acknowledged but felt this strengthened his position saying it was only in the context of alcohol abuse and detox. Pt denies any AVH, paranoid delisional thoughts, SI or HI; he denies hx of manic episodes; denies any other substance abuse and agrees Barbituates in UDS likely do to phenobarb treatment for detox. Pt denies that he was pacing the house and not sleeping; he denies that he got into bed with his mother or made an threatening remark. He does however acknowledge that he may have unintentionally scared her and that he may have black outs and not fully remember his actions. He endorses Depression which has been worsening past few months since his father and he moved to [place] but says he's never been on psych meds before and does not want them. He does not want a program for help w/ sobriety, but will take resources. -he denies that his is experiencing any withdrawal Per ED Crisis report: Crisis has been out to house 2 times this week. mother reports that patient has been acting bizarrely, hardly eating, up all night, pacing around the house; then mother reported patient was yelling and accusing his her of taking his things, made a passive HI statement towards his mother; after yelling, stood in 1 spot in the kitchen, not moving or responding For hours and so crisis was called the 2nd time and patient remained standing still, not moving, talking or responding, including to police. His mother reports that patient crawled into bed with her and was lying on top of her and that both she and her other son are scared of his behavior. On arriving to the ED patient had no recollection of events that occurred the days prior and up to arriving at the emergency room. Formulation/clinical reasoning: Patient currently organized in behavioral and speech; no signs of psychosis, brigido or catatonia. Patient had similar presentation about a month ago which also seemed to resolve with detox. Patient told ED staff that he drink 2-3 times a week, about 5 + alcoholic beverages. On admission, His Tox screen positive for barbiturates; while this could possibly be a remnant from phenobarb taper a few weeks ago, patient is a limited historian with history of severe alcoholism and so on arrival to unit, started him on Ativan 1 mg t.i.d. scheduled in addition to CIWA with p.r.n. Ativan as Ativan scheduled may also help with catatonic symptoms. Today, he denies w/drawal and does not want scheduled meds of any kind. Will continue to assess and alter meds as indicated impression: currently organized and so far it seems that manic/psychotic/catatonic symptoms have resolved; quite possibly substance induced behaviors but too soon tell and pt's behaviors and mothers concerns report warrant admission and monitoring. -dx: brief psychotic disorder but provisional and substance induced remains high on differential list; has MDD as well Plan: Twelve B Q 15 minute checks initially Ativan 1 mg t.i.d. for combination of alcohol withdrawal and concern for catatonic symptoms -however, if remains w/out symptoms will dc Gabapentin 300mg tid for detox; will monitor CIWA with p.r.n. Ruperto Gather collateral 06/05: Continue tx plan. 06/06: DC CIWA Continue tx. Reason for continued inpatient stay Substantial Risk for: rapid decompensation Time Spent With Patient Time: Total time managing care of this patient today ____ minutes.
[2024-06-06] MEDS: Nicotine Polacrilex 2 MG GUM 4 MG BUCCAL (13:31)
--- NOTE | 2024-06-07 16:00 | HO.PSYCHPN ---
Subjective Subjective Date of Service: 06/07/24 Reason For Visit: Manic Interim History: Met with patient; discussed with team ; reviewed chart Patient reports that he is still depressed but overall feeling better than when he came in. He says his mood is fine and he is eager to discharge. 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 Patient considered a 1 on 1 therapist independent of that program but declined. Remains not interested in medications. Said his plan is to return to his mom's house whom we talked to and she said that was fine. -patient has remained mostly isolative and keeping to himself but has also been calm and in good behavioral and impulse control throughout the weekend, without any manic or catatonic symptoms. Mental Status Exam Mental Status Exam Narrative: Pt is alert and oriented; behavior is calm and cooperative, though mostly quiet and keeps to himself; patient is not in distress; dressed in hospital attire with unkempt hair; mood is described as fine and affect constricted/blunted; eye contact appropriate; Speech is normal rate, volume and prosody and not pressured; some psychomotor retardation present; thought process is organized and goal directed; Thought content is on discharge and aftercare;; otherwise pertinent to relevant topics and without any delusional content, paranoid ideations or grandiosity; denies any SI/HI. Denies AVH and There is no evidence of perceptual disturbance. Patients insight and judgment are adequate. Patient Appearance: Appropriate Patient Orientation: Person, Place, Time and Situation Level of Consciousness: Alert Patient Behavior: Good Eye Contact Mood Description: Constricted Affect Description: Constricted Patient Cognition Impaired: No Ability to Follow Directions: Good Speech Pattern: Spontaneous Speech Thought Process: Distracted Thought Content: positive for Circumstantial Judgement: Fair Diagnostics Vital Signs (24Hr): BMI result Body Mass Index 25.1 Labs 06/01/24 18:24 06/01/24 18:24 Medications Medications Current Medications Acetaminophen (Acetaminophen 325 Mg Tablet) 650 mg PO Q6H PRN PRN Reason: Headache/Pain Mild Scale (1-3) Al Hydroxide/Mg Hydroxide (Magnesium Hydrox/Alum Hydrox 30 Ml Oral.Susp) 30 ml PO Q6H PRN PRN Reason: Heartburn/Nausea Folic Acid (Folic Acid 1 Mg Tablet) 1 mg PO DAILY [facility] Last Admin: 06/07/24 09:53 Dose: Not Given Lorazepam (Lorazepam 1 Mg Tablet) 2 mg PO Q2H PRN PRN Reason: CIWA 11 and above Lorazepam (Lorazepam 1 Mg Tablet) 1 mg PO Q2H PRN PRN Reason: CIWA 6-10 Magnesium Hydroxide (Milk Of Magnesia 30 Ml Oral.Susp) 30 ml PO DAILY PRN PRN Reason: Constipation Multivitamins/Vitamin C (Multivitamin Tablet) 1 tab PO DAILY [facility] Last Admin: 06/07/24 09:53 Dose: Not Given Nicotine (Nicotine 21 Mg Patch.Td24) 21 mg TRANSDERMA DAILY PRN PRN Reason: smoking cessation Nicotine Polacrilex (Nicotine Polacrilex 2 Mg Gum) 4 mg BUCCAL Q2H PRN PRN Reason: Nicotine Cravings Last Admin: 06/06/24 13:31 Dose: 4 mg Olanzapine (Olanzapine 5 Mg Tablet) 5 mg PO TID PRN PRN Reason: agitation Thiamine HCl (Thiamine Hcl 100 Mg Tablet) 100 mg PO DAILY [facility] Last Admin: 06/07/24 09:53 Dose: Not Given Trazodone HCl (Trazodone Hcl 50 Mg Tablet) 50 mg PO BEDTIME MRX1 PRN PRN Reason: Insomnia Allergies Allergies Allergy/AdvReac Type Severity Reaction Status Date / Time No Known Allergies Allergy Verified 06/01/24 17:50 Assessment & Plan Assessment & Plan (1) Brief psychotic disorder with catatonia: Status: Acute Code(s): F23 - Brief psychotic disorder; F06.1 - Catatonic disorder due to known physiological condition (2) MDD (major depressive disorder), recurrent episode, moderate: Status: Acute Code(s): F33.1 - Major depressive disorder, recurrent, moderate Plan HPI: Patient is a 34-year-old male with history of bizarre behaviors in the community, alcoholism, alcohol hepatitis, who presents from the community after his mother called crisis for patient's bizarre and catatonic behavior. Patient is irritable at first, but willing to talk. He remembers that he was standing still, not talking to anyone...he denies that it was for hours. He said he's not sure why he did this, other than he did not want to move or talk. He agrees that it was bizarre but says he's never done anything like that before in his life and it was just because he had been drinking, that it was substance related only and not psychosis... Clinical Staff Anesthesiologist reminded pt of time this past April when admitted to hospital for detox, which he acknowledged but felt this strengthened his position saying it was only in the context of alcohol abuse and detox. Pt denies any AVH, paranoid delisional thoughts, SI or HI; he denies hx of manic episodes; denies any other substance abuse and agrees Barbituates in UDS likely do to phenobarb treatment for detox. Pt denies that he was pacing the house and not sleeping; he denies that he got into bed with his mother or made an threatening remark. He does however acknowledge that he may have unintentionally scared her and that he may have black outs and not fully remember his actions. He endorses Depression which has been worsening past few months since his father and he moved to [place] but says he's never been on psych meds before and does not want them. He does not want a program for help w/ sobriety, but will take resources. -he denies that his is experiencing any withdrawal Per ED Crisis report: Crisis has been out to house 2 times this week. mother reports that patient has been acting bizarrely, hardly eating, up all night, pacing around the house; then mother reported patient was yelling and accusing his her of taking his things, made a passive HI statement towards his mother; after yelling, stood in 1 spot in the kitchen, not moving or responding For hours and so crisis was called the 2nd time and patient remained standing still, not moving, talking or responding, including to police. His mother reports that patient crawled into bed with her and was lying on top of her and that both she and her other son are scared of his behavior. On arriving to the ED patient had no recollection of events that occurred the days prior and up to arriving at the emergency room. Formulation/clinical reasoning: Patient currently organized in behavioral and speech; no signs of psychosis, brigido or catatonia. Patient had similar presentation about a month ago which also seemed to resolve with detox; these episodes seem to include either blackouts or disassociation. Patient told ED staff that he drink 2-3 times a week, about 5 + alcoholic beverages. On admission, His Tox screen positive for barbiturates; while this could possibly be a remnant from phenobarb taper a few weeks ago, patient is a limited historian with history of severe alcoholism and so on arrival to unit, started him on Ativan 1 mg t.i.d. scheduled in addition to CIWA with p.r.n. Ativan as Ativan scheduled may also help with catatonic symptoms. Today, he denies w/drawal and does not want scheduled meds of any kind. Will continue to assess and alter meds as indicated. impression: currently organized and so far it seems that manic/psychotic/catatonic symptoms have resolved; quite possibly substance induced behaviors but too soon tell and pt's behaviors and mothers concerns report warrant admission and monitoring. -dx: substance induced psychotic episode (instead of brief psychotic disorder); MDD 06/05: Continue tx plan. 06/07 Patient reports that he is still depressed but overall feeling better than when he came in. He says his mood is fine and he is eager to discharge. 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 Patient considered a 1 on 1 therapist independent of that program but declined. Remains not interested in medications. Said his plan is to return to his mom's house whom we talked to and she said that was fine. Team tried to get a hold of patient's mother but unable to. Although patient has remained mostly isolative and keeping to himself he has also been calm and in good behavioral and impulse control throughout the his admission, without any manic, psychotic or catatonic symptoms; he has consistently denied any SI/HI or history of and he has not demonstrated any unsafe behaviors and though irritable on admission, has overall been appropriate with peers and staff. He endorses depression which is chronic but remains adamant that he will cope with it on his own as he always does and does not want further treatment. Patient's 12 B is coming due. Whatever was going on in the community that resulted in this admission has since fully resolved and patient is organized in both speech and behavior. Patient is requesting discharge. He will very likely continue to struggle with alcoholism and depression however these issues are chronic. Patient is not in imminent risk for harm to self or others and request for discharge honored. Plan: Twelve B Q 15 minute checks initially Ativan 1 mg t.i.d. for combination of alcohol withdrawal and concern for catatonic symptoms -however, if remains w/out symptoms will dc Gabapentin 300mg tid for detox; will monitor CIWA with p.r.n. Ativan Gather collateral Patient educated on: diagnosis, medication risk/benefits, substance abuse and therapeutic strategies Informed Consent: understands Reason for continued inpatient stay Substantial Risk for: stable for discharge Time Spent With Patient Time: Total time managing care of this patient today ____ minutes.
--- NOTE | 2024-06-07 17:18 | PC.NURSE ---
Patient refused all scheduled meds and refused to allow for his vital signs to be checked. Pleasant upon approach but resistive to care and not forthcoming about how he is feeling. He continues to deny all psych symptoms. Was witnessed today checking the locks on the doors to the stairwell. He did ask who would be notified when he was discharged and if he was allowed to leave on foot in his own care.
[2024-06-08 07:50] VITALS: RESP 16
--- NOTE | 2024-06-08 09:28 | P.DS_ITS ---
DS: Providers Provider Date of Service: 06/08/24 Date of admission: 06/03/24 11:37 Date of discharge: 06/08/24 Primary care physician: None Physician Attending physician on admission: Soy Gale Attending physician on discharge: Soy Gale DS: Diagnosis Discharge Diagnosis (1) Brief psychotic disorder with catatonia: Status: Inactive (2) MDD (major depressive disorder), recurrent episode, moderate: Status: Acute DS: Medications Discharge Medications Home Medications: Previous Rx's ?Medication ?Instructions ?Recorded nicotine (polacrilex) 4 mg gum 4 mg buccal Q2H 30 days #100 ea 06/08/24 Mental Status Exam Mental Status Exam Narrative: Pt is alert and oriented; behavior is calm and cooperative, though mostly quiet and keeps to himself; patient is not in distress; dressed in hospital attire w ith unkempt hair; mood is described as depressed and affect constricted/blunted; eye contact appropriate; Speech is normal rate, volume and prosody and not pressured; some psychomotor retardation present; thought process is organized and goal directed; Thought content is on discharge and aftercare;; otherwise pertinent to relevant topics and without any delusional content, paranoid ideations or grandiosity; denies any SI/HI. Denies AVH and There is no evidence of perceptual disturbance. Patients insight and judgment are adequate. Data Data Completed and Pending Completed studies during hospitalization [Text1]: 06/01/24 06/01/24 18:24 18:46 WBC 5.4 RBC 4.77 Hgb 15.3 Hct 42.6 MCV 89.3 MCH 32.1 MCHC 35.9 RDW 12.7 Plt Count 151 L MPV 10.1 Immature Gran % (Auto) 0.4 Neut % (Auto) 65.5 Lymph % (Auto) 13.8 L [place] % (Auto) 17.5 H Eos % (Auto) 1.7 Baso % (Auto) 1.1 Lymph # (Auto) 0.8 L [place] # (Auto) 1.0 Eos # (Auto) 0.1 Baso # (Auto) 0.1 Abs Immat Gran (auto) 0.02 Absolute Neuts (auto) 3.6 Absolute Nucleated RBC 0.000 Nucleated RBC % (auto) 0.0 Sodium 138 Potassium 4.1 Chloride 102 Carbon Dioxide 25 Anion Gap 15 BUN 20 H Creatinine 1.15 Estim Creat Clear Calc 98.4 Estimated GFR > 60 Random Glucose 104 Calcium 9.7 Magnesium 2.0 Total Bilirubin 0.7 AST 146 H ALT 165 H Alkaline Phosphatase 59 Total Protein 7.7 Albumin 4.6 Urine Color Dark Yellow Urine Appearance Clear Urine pH 5.5 Ur Specific [place] >= 1.030 H Urine Protein 30 (1+) H Urine Glucose (UA) Negative Urine Ketones 15 Urine Blood Negative Urine Nitrite Negative Ur Leukocyte Esterase Trace H Urine RBC 0-2 Urine WBC 0-5 Ur Squamous Epith Cells 3-5 Urine Bacteria None Seen Hyaline Casts 11-20 Urine Opiates Screen Not Detected Ur Buprenorphine Scrn Not Detected Ur Oxycodone Screen Not Detected Urine Methadone Screen Not Detected Urine Fentanyl Screen Not Detected Ur Barbiturates Screen POSITIVE H Ur Phencyclidine Scrn Not Detected Ur Amphetamines Screen Not Detected U Benzodiazepines Scrn Not Detected Urine Cocaine Screen Not Detected U Marijuana (THC) Screen Not Detected Ethyl Alcohol < 10 DS: Summary Hospital Course Hospital Course: HPI: Patient is a 34-year-old male with history of bizarre behaviors in the community, alcoholism, alcohol hepatitis, who presents from the community after his mother called crisis for patient's bizarre and catatonic behavior. Patient is irritable at first, but willing to talk. He remembers that he was standing still, not talking to anyone...he denies that it was for hours. He said he's not sure why he did this, other than he did not want to move or talk. He agrees that it was bizarre but says he's never done anything like that before in his life and it was just because he had been drinking, that it was substance related only and not psychosis... Personnel Consultant reminded pt of time this past April when admitted to hospital for detox, which he acknowledged but felt this strengthened his position saying it was only in the context of alcohol abuse and detox. Pt denies any AVH, paranoid delisional thoughts, SI or HI; he denies hx of manic episodes; denies any other substance abuse and agrees Barbituates in UDS likely do to phenobarb treatment for detox. Pt denies that he was pacing the house and not sleeping; he denies that he got into bed with his mother or made an threatening remark. He does however acknowledge that he may have unintentionally scared her and that he may have black outs and not fully remember his actions. He endorses Depression which has been worsening past few months since his father and he moved to [place] but says he's never been on psych meds before and does not want them. He does not want a program for help w/ sobriety, but will take resources. -he denies that his is experiencing any withdrawal Per ED Crisis report: Crisis has been out to house 2 times this week. mother reports that patient has been acting bizarrely, hardly eating, up all night, pacing around the house; then mother reported patient was yelling and accusing his her of taking his things, made a passive HI statement towards his mother; after yelling, stood in 1 spot in the kitchen, not moving or responding For hours and so crisis was called the 2nd time and patient remained standing still, not moving, talking or responding, including to police. His mother reports that patient crawled into bed with her and was lying on top of her and that both she and her other son are scared of his behavior. On arriving to the ED patient had no recollection of events that occurred the days prior and up to arriving at the emergency room. Formulation/clinical reasoning: Patient currently organized in behavioral and speech; no signs of psychosis, brigido or catatonia. Patient had similar presentation about a month ago which also seemed to resolve with detox; these episodes seem to include either blackouts or disassociation. Patient told ED staff that he drink 2-3 times a week, about 5 + alcoholic beverages. On admission, His Tox screen positive for barbiturates; while this could possibly be a remnant from phenobarb taper a few weeks ago, patient is a limited historian with history of severe alcoholism and so on arrival to unit, started him on Ativan 1 mg t.i.d. scheduled in addition to CIWA with p.r.n. Ativan as Ativan scheduled may also help with catatonic symptoms. Today, he denies w/drawal and does not want scheduled meds of any kind. Will continue to assess and alter meds as indicated. Hospital course: currently organized and so far it seems that manic/psychotic/catatonic symptoms have resolved; quite possibly substance induced behaviors but too soon tell and pt's behaviors and mothers concerns report warrant admission and monitoring. -presenting Diagnosis: alcohol induced psychosis, recurrent, severe with onset during intoxication, in full remission (instead of brief psychotic disorder) 06/07 Patient reports that he is still depressed but overall feeling better than when he came in. He says his mood is fine and he is eager to discharge. 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 Patient considered a 1 on 1 therapist independent of that program but declined. Remains not interested in medications. Said his plan is to return to his mom's house whom we talked to and she said that was fine. Team tried to get a hold of patient's mother but unable to. Although patient has remained mostly isolative, (intermittently irritable with staff) and keeping to himself he has also been calm and in relatively good behavioral and impulse control throughout the his admission, without any manic, psychotic or catatonic symptoms; he has consistently denied any SI/HI or history of and he has not demonstrated any unsafe behaviors and though irritable on admission, has overall been appropriate with peers and staff. He endorses depression which is chronic but remains adamant that he will cope with it on his own as he always does and does not want further treatment. Patient's 12 B is coming due. Whatever was going on in the community that resulted in this admission has since fully resolved and patient is organized in both speech and behavior. Patient is requesting discharge. He will very likely continue to struggle with alcoholism and depression however these issues are chronic. Patient is not in imminent risk for harm to self or others and request for discharge honored. Discharge Diagnosis: MDD, recurrent, moderate, without psychosis. alcohol induced psychosis fully resolved Time spent discussing smoking cessation with patient: 3 to 10 minutes Status at Discharge Functional status at discharge: independent ambulation Overall status at discharge: patient is back to baseline Time Spent with Patient Time attestation: Total time managing care of this patient today ____ minutes. Time spent: Less than 30 minutes Discharge Plan Discharge Anticipated Discharge Date/Time: 06/08/24 11:00 Patient Disposition: Home, Self-Care Discharge Diagnosis: MDD, recurrent, moderate, without psychosis; alcohol induced psychosis, recurrent, severe with onset during intoxication, in full remission Referrals: Physician,None [Primary Care Provider] - 1 Week Discharge Medications: New nicotine (polacrilex) 4 mg gum 4 mg buccal Q2H 30 Days Qty: 100 0RF Discharge Orders: Discharge Order (Routine); Ordered 06/08/24 Ordered By: Soy Gale Diet: Regular diet Activity on Discharge: As tolerated Stand Alone Forms: Patient Portal Discharge page, Community Support Print Language: Faroese Care Plan Goals: Maintain mood and safe behaviors Take medications as prescribed Continue to pursue sobriety Practice coping skills Continue with outpatient providers and reach out to them as needed Health Concerns: Mood stability and behaviors Sobriety Plan of Treatment: Follow up with outpatient providers regarding above concerns Consider treatment for depression and alcohol abuse Assessment: Risk assessment at time of discharge:? Patient was interviewed prior to discharge and found to be fully oriented and without any SI or HI. Patient has improved insight and judgment and wants to continue treatment. Patient is not in imminent risk of harm to self or others and has a safety plan that includes presenting to the closest ER or calling 911 if feeling unsafe.? Patient has been observed closely by nursing and unit staff throughout admission; patient has not engaged in any behaviors that suggest dangerousness to self or others and has demonstrated appropriate behaviors and impulse control Discharge Date/Time: 06/08/24 11:01
== END 2024-06-08 11:01 | disposition home or self-care (01) | DRG 751 ==
LOC: HO.ED 06-02 15:06 → HO.PM5 06-03 11:43
PROVIDERS: Physician Assistant; Admitting Provider Psychiatry & Neurology Psychiatry; Emergency Provider Emergency Medicine; Visit Provider Psychiatry & Neurology Psychiatry
DX: F33.1 Major depressive disorder, recurrent, moderate (principal); F06.1 Catatonic disorder due to known physiological condition; F10.259 Alcohol dependence with alcohol-induced psychotic disorder, unspecified; F17.210 Nicotine dependence, cigarettes, uncomplicated; Z71.6 Tobacco abuse counseling
CPT/HCPCS: 36415; 80053; 80307; 81001; 81003; 83735; 85025; 93005; 99285; S9485

== ENCOUNTER → 2024-06-02 13:08 | Outpatient (BNV) | payer OTHER, SELFPAY | PROVIDERS: Emergency Provider Emergency Medicine; Visit Provider Internal Medicine | DX: Z51.81 Encounter for therapeutic drug level monitoring (principal) | CPT/HCPCS: 93010 ==

== ENCOUNTER → 2024-06-03 11:37 | Outpatient (BNV) | payer OTHER, SELFPAY | PROVIDERS: Admitting Provider Psychiatry & Neurology Psychiatry; Emergency Provider Emergency Medicine; Visit Provider Psychiatry & Neurology Psychiatry | DX: F33.1 Major depressive disorder, recurrent, moderate (principal); F23 Brief psychotic disorder; F06.1 Catatonic disorder due to known physiological condition; K70.10 Alcoholic hepatitis without ascites | CPT/HCPCS: 90792; 99231; 99232; 99238 ==

== ENCOUNTER 2024-07-13 19:35 | Emergency (ER) | payer OTHER, SELFPAY ==
[2024-07-13 20:33] VITALS: BP 126/73; PULSE 129; RESP 18; TEMP 37; O2SAT 97
[2024-07-13 20:41] VITALS: BMI 26.8
--- NOTE | 2024-07-13 20:49 | ED.ALCOHOL ---
HPI - Alcohol General Chief Complaint: ETOH/Substance Use Stated Complaint: ETOH Time Seen by Provider: 07/13/24 19:53 Source: patient and EMS Mode of arrival: EMS Limitations: no limitations History of Present Illness ED Provider: Dr. Carol Culver HPI narrative: Patient comes in the emergency room complaining of alcohol intoxication. According to the patient, he admits that he has been drinking alcohol, his family member called 911 to bring him to the hospital. Patient is cooperative, awake and alert, denies SI or HI, steady on feet. Patient admits that he has been drinking a lot of vodka. Related Data Previous Rx's ?Medication ?Instructions ?Recorded nicotine (polacrilex) 4 mg gum 4 mg buccal Q2H 30 days #100 ea 06/08/24 Allergies Allergy/AdvReac Type Severity Reaction Status Date / Time No Known Allergies Allergy Verified 07/13/24 20:44 Review of Systems Review of Systems: Constitutional : No Weight loss, No Fever, No Chills, No Night Sweats, No Fatigue, No Malaise ENT/Mouth : No Hearing loss, No Ear Pain, No Nasal Congestion, No Sinus Pain, No Hoarseness, No sore throat, No Rhinorrhea, No Swallowing Difficulty Eyes: No Eye Pain, No Swelling, No Redness, No Foreign Body, No Discharge, No Vision Changes Cardiovascular : No Chest Pain, No SOB, No Dyspnea on Exertion, No Orthopnea, No Edema, No Palpitations Respiratory : No Cough, No Sputum, No Wheezing, No Smoke Exposure, No Dyspnea Gastrointestinal : No Nausea, No Vomiting, No Diarrhea, No Constipation, No abdominal Pain, No Hematochezia, No Melena Genitourinary : no irregular bleeding, No Dysuria, No Urinary Frequency, No Hematuria, No Urinary Incontinence, No Urgency, No Flank Pain, No Urinary Flow Changes, No Hesitancy Musculoskeletal : No joint pain, No Myalgias, No Joint Swelling Skin : No Skin Lesions, No rash Neuro : No Weakness, No Numbness, No Paresthesias, No Loss of Consciousness, No Dizziness, No Headache Psych : No Anxiety/Panic, No Depression, No SI/HI/AH/VH, admits to drinking vodka heavily Heme/Lymph: No Bruising, No Bleeding,No Lymphadenopathy Endocrine : No Polyuria, No Polydipsia, No Temperature Intolerance [facility] Past Medical History Medical History Alcoholic hepatitis Alcohol-induced psychosis, with delusions MDD (major depressive disorder), recurrent episode, moderate No pertinent past medical history Social History Social History Household Members: Family Household Members Other:: Mother & Brother Housing: Condominium Do you presently have visiting nurse or other home services: No Alcohol intake: current Alcohol intake frequency: 3 or more drinks per day Alcohol type: beer and hard liquor Patient Tobacco Use Status: Current everyday Tobacco user Tobacco use type: Cigarette Cigarette Packs Per Day: 0.5 Cigarettes Per Day: 10.0 Years Smoked: 15 e-Cigarette/Vaping Use: Former Use Second Hand Smoke Exposure: Yes Substance Use Type: Marijuana Advance Directives Date on File: 05/07/24 service: No Sexual orientation: Straight/Heterosexual Physical Exam ED Vital Signs: Vital Signs - 24 hr 07/13/24 20:33 Temperature 98.6 F Pulse Rate 129 H Respiratory Rate 18 Blood Pressure 126/73 Pulse Oximetry 97 Oxygen Delivery Method Room Air BMI result Body Mass Index 26.8 Const Other: Appearance: Alert. Oriented X3. No acute distress. Eyes: Pupils equal, round and reactive to light. Bilateral injected conjunctiva ENT: Pharynx normal. Neck: Normal inspection. Neck supple. No lymph nodes noted. No crepitus CVS: Normal heart rate and rhythm. Pulses normal. Normal S1 and S2 Respiratory: No respiratory distress. Breath sounds normal. No Wheezing. No rales Abdomen: Soft and nontender. No rigidity. No distention. Skin: Skin warm and dry. Normal skin color. Normal skin turgor. Extremities: No lower extremity edema. No Lacerations. No Rash Neuro: Oriented X 3. No motor deficit. No sensory deficit. Moving all extremities. No slurred speech. CN 2 through 12 grossly intact Psych: calm, cooperative, normal affect Medical Decision Making Medical Decision Making MDM Narrative: Patient is awake, alert and oriented x3, patient denies falling or having any head trauma. -patient states that he feels well, denies SI or HI. Patient states that he is not ready to go to detox, but is willing to make his own phone calls to try outpatient clinics/services It was noted that patient's heart rate is between 120 and 130. Patient does not want any significant workup, states that he feels well and eventually would like to be discharged. -patient not SI or HI, there is no indication for a section 12 -at 21:00, physician observation has been started. Differential Diagnosis Differential Diagnoses: The differential diagnosis associated with the presentation includes (THC abuse, alcohol abuse) Critical Care Time Critical Care Time Critical Care Time: Yes Total Critical Care Time: 30 Attestation: I have personally provided critical care time. Time includes review of lab data, radiology results, discussion with consultants, and monitoring for potential decompensation. Intervention performed as documented. Discharge Plan Discharge Clinical Impression: Alcoholic intoxication Patient Disposition: Home, Self-Care Instructions: Alcohol Intoxication (ED) Additional Instructions: Please follow-up with your primary care physician tomorrow. If you have any worsening or new symptoms, please return to the emergency room or call 911 Prescriptions: No Action nicotine (polacrilex) 4 mg gum 4 mg buccal Q2H 30 Days Qty: 100 0RF Print Language: Ukrainian
--- NOTE | 2024-07-13 20:56 | ECG_ITS ---
Test Reason : TACHYCARDIA/ETOH Blood Pressure : / mmHG Vent. Rate : 119 BPM Atrial Rate : 119 BPM P-R Int : 162 ms QRS Dur : 092 ms QT Int : 316 ms P-R-T Axes : 037 043 005 degrees QTc Int : 444 ms Sinus tachycardia Otherwise normal ECG When compared with ECG of 02-JUN-2024 13:08, Vent. rate has increased BY 42 BPM Referred By: Carol Culver Electronically Signed By:LUANN FREEMAN
--- NOTE | 2024-07-13 21:17 | PC.NURSE ---
bizarre behaviors. catatonic at times. talking to people who aren't present. remains calm and can interact w/o diff when necessary
[2024-07-13 22:04] LABS: MANUAL DIFF FLAG NO
[2024-07-13 22:15] LABS: Ammonia 34 umol/L (13-55); Basophils Percent Auto 0.6 % (0-2); Eosinophils Absolute Auto 0.1 X10*3/uL (0.0-0.4); Eosinophils Percent Auto 1.4 % (0-4); Hematocrit 46.1 % (42.0-52.0); Imm Gran Abs Auto 0.03 X10*3/uL (0.00-0.03); Imm Gran Pct Auto 0.4 % (0.0-0.4); Lymphocytes Absolute Auto 1.3 X10*3/uL (1.2-4.9); Lymphocytes Percent Auto 18.3 % (20-40); Mean Corpuscular HGB Conc 36.9 g/dl (31.0-36.0); Mean Corpuscular Hemoglobin 31.1 pg (27.0-33.0); Mean Corpuscular Volume 84.4 fL (80.0-98.0); Mean Platelet Volume 9.9 fL (9.4-12.4); Monocytes Absolute Auto 0.6 X10*3/uL (0.1-1.2); Monocytes Percent Auto 8.5 % (2-11); Neutrophils Absolute Auto 5.1 x10*3/uL (2.0-8.3); Neutrophils Percent Auto 70.8 % (45-73); Platelet Count 159 X10*3/uL (160-400); Red Blood Count 5.46 X10*6/uL (4.60-5.80); Red Cell Distribution Width 12.4 % (11.0-16.0); White Blood Count 7.2 X10*3/uL (4.8-10.8)
[2024-07-13 22:16] LABS: Amphetamine Screen Urine Not Detected (Not Detect); Barbiturates, Urine Not Detected (Not Detect); Benzodiazepines Screen Urine Not Detected (Not Detect); Buprenorphine Scr Not Detected (Not Detect); Cannabinoid Screen Urine Not Detected (Not Detect); Cocaine Screen Urine Not Detected (Not Detect); Fentanyl, urine Not Detected (Not Detect); Methadone Screen, Urine Not Detected (Not Detect); Opiate Screen Urine Not Detected (Not Detect); Oxycodone Screen Urine Not Detected (Not Detect); Phencyclidine Screen Urine Not Detected (Not Detect)
[2024-07-13 22:20] LABS: Alanine Aminotransferase 174 U/L (0-40); Albumin Level 4.7 g/dL (3.5-5.0); Alkaline Phosphatase 53 U/L (39-117); Anion Gap 21 (12-20); Aspartate Amino Transferase 263 U/L (5-37); Bilirubin Total 0.6 mg/dL (0.0-1.0); Blood Urea Nitrogen 7 mg/dL (9-16); Calcium 9.3 mg/dL (8.4-10.2); Carbon Dioxide 22 mmol/L (22-29); Chloride 96 mmol/L (96-108); Creatinine Clr Calc Pharmacy 156.2; Estimated Glomerular Filt Rate > 60; Ethanol 330 mg/dL; Glucose Random 86 mg/dL (60-115); Potassium 3.3 mmol/L (3.3-5.1); Sodium 136 mmol/L (135-145); Total Protein 7.5 g/dL (6.5-8.0)
[2024-07-13 23:15] VITALS: BP 117/67; PULSE 117; RESP 18; TEMP 37.2; O2SAT 96
[2024-07-14 00:55] VITALS: BP 110/71; PULSE 101; RESP 16; TEMP 36.7; O2SAT 98
== END 2024-07-14 00:56 | disposition home or self-care (01) ==
PROVIDERS: Emergency Provider Emergency Medicine
DX: F10.129 Alcohol abuse with intoxication, unspecified (principal); R00.0 Tachycardia, unspecified; Y90.9 Presence of alcohol in blood, level not specified; F17.210 Nicotine dependence, cigarettes, uncomplicated; Z79.899 Other long term (current) drug therapy; Z51.81 Encounter for therapeutic drug level monitoring
CPT/HCPCS: 80053; 80307; 82140; 85025; 93005; 99285

== ENCOUNTER → 2024-07-13 20:56 | Outpatient (BNV) | payer OTHER, SELFPAY | PROVIDERS: Emergency Provider Emergency Medicine; Visit Provider Internal Medicine | DX: R00.0 Tachycardia, unspecified (principal) | CPT/HCPCS: 93010 ==

== ENCOUNTER 2024-07-14 10:48 | Inpatient (IN) | payer OTHER, SELFPAY ==
--- NOTE | ~2024-07-14 | CT_ITS ---
EXAMINATION: CT HEAD WITHOUT CONTRAST CT CERVICAL SPINE WITHOUT CONTRAST CLINICAL INFORMATION: Fall down stairs. Head strike. EtOH. COMPARISON: CT head from 05/05/2024. TECHNIQUE: Contiguous axial imaging was performed from the skull base to vertex without intravenous administration of contrast. Contiguous axial imaging was performed from the upper chest through the skull base without intravenous administration of contrast. Coronal and sagittal reformats were obtained at the acquisition workstation. This CT examination was performed using dose optimization techniques as appropriate, variously including the following: *Automated exposure control. *Adjustment of mA and/or kV according to patient size (this includes techniques or standardized protocols for targeted exams where dose is matched to indication/reason for exam; i.e. extremities or head). *Use of iterative reconstruction technique. DLP: 1278 mGy-cm FINDINGS: Head: There is no evidence of acute intracranial hemorrhage or edematous territorial infarction. [place]-white matter differentiation is preserved. There is no abnormal attenuation within the brain parenchyma. The ventricles are normal in morphology and size. No evidence for obstructive hydrocephalus. No abnormal mass effect or midline shift. No extra-axial fluid collections. No acute soft tissue or osseous abnormalities. Mild mucosal thickening of the paranasal sinuses. Depression of the left lamina papyracea. The mastoid air cells and middle ear cavities are clear. Cervical Spine: The atlantooccipital and atlantoaxial articulations remain well aligned. Mild degenerative arthropathy of the atlantodental articulation. Mild reversal the normal cervical lordosis centered on C5-C6. Otherwise, there is anatomic alignment of the vertebral bodies and posterior elements. No evidence of acute fracture or subluxation. The vertebral body heights are maintained. Moderate degenerative disc disease at C5-C6. There is no prevertebral soft tissue swelling. The thyroid gland and remaining cervical soft tissues are within normal limits. The lung apices demonstrate no abnormalities. CT/CT head/brain wo IV con IMPRESSION: 1. No evidence of acute intracranial hemorrhage or edematous territorial infarction. 2. No evidence of acute fracture or traumatic subluxation of the cervical spine. Mild to moderate degenerative spondyloarthropathy of the cervical spine. Electronically signed by: Abram Odell DO 07/14/2024 06:30 PM [facility]
--- NOTE | ~2024-07-14 | CT_ITS ---
EXAMINATION: CT HEAD WITHOUT CONTRAST CT CERVICAL SPINE WITHOUT CONTRAST CLINICAL INFORMATION: Fall down stairs. Head strike. EtOH. COMPARISON: CT head from 05/05/2024. TECHNIQUE: Contiguous axial imaging was performed from the skull base to vertex without intravenous administration of contrast. Contiguous axial imaging was performed from the upper chest through the skull base without intravenous administration of contrast. Coronal and sagittal reformats were obtained at the acquisition workstation. This CT examination was performed using dose optimization techniques as appropriate, variously including the following: *Automated exposure control. *Adjustment of mA and/or kV according to patient size (this includes techniques or standardized protocols for targeted exams where dose is matched to indication/reason for exam; i.e. extremities or head). *Use of iterative reconstruction technique. DLP: 1278 mGy-cm FINDINGS: Head: There is no evidence of acute intracranial hemorrhage or edematous territorial infarction. [place]-white matter differentiation is preserved. There is no abnormal attenuation within the brain parenchyma. The ventricles are normal in morphology and size. No evidence for obstructive hydrocephalus. No abnormal mass effect or midline shift. No extra-axial fluid collections. No acute soft tissue or osseous abnormalities. Mild mucosal thickening of the paranasal sinuses. Depression of the left lamina papyracea. The mastoid air cells and middle ear cavities are clear. Cervical Spine: The atlantooccipital and atlantoaxial articulations remain well aligned. Mild degenerative arthropathy of the atlantodental articulation. Mild reversal the normal cervical lordosis centered on C5-C6. Otherwise, there is anatomic alignment of the vertebral bodies and posterior elements. No evidence of acute fracture or subluxation. The vertebral body heights are maintained. Moderate degenerative disc disease at C5-C6. There is no prevertebral soft tissue swelling. The thyroid gland and remaining cervical soft tissues are within normal limits. The lung apices demonstrate no abnormalities. CT/CT cervical spine wo IV con IMPRESSION: 1. No evidence of acute intracranial hemorrhage or edematous territorial infarction. 2. No evidence of acute fracture or traumatic subluxation of the cervical spine. Mild to moderate degenerative spondyloarthropathy of the cervical spine. Electronically signed by: Abram Odell DO 07/14/2024 06:30 PM [facility]
[2024-07-14 11:07] VITALS: BP 120/82; BP 124/80; PULSE 116; PULSE 125; RESP 20; TEMP 36.7; O2SAT 95; O2SAT 97
[2024-07-14 11:19] VITALS: RESP 16
--- NOTE | 2024-07-14 11:22 | PC.NURSE ---
Sohan comes in from home today reporting that he fell down the stairs today. he endorses drinking multiple nips today along with chronic alcohol usage. Patient denies SI and HI. Pt does appear intoxicated at this time. Calm and cooperative, offering no complaints at this time
[2024-07-14 11:33] LABS: MANUAL DIFF FLAG NO
[2024-07-14 11:34] LABS: Basophils Absolute Auto 0.1 X10*3/uL (0.0-0.2); Basophils Percent Auto 0.8 % (0-2); Eosinophils Absolute Auto 0.1 X10*3/uL (0.0-0.4); Eosinophils Percent Auto 1.1 % (0-4); Hematocrit 46.5 % (42.0-52.0); Hemoglobin 17.1 g/dl (14.0-18.0); Imm Gran Abs Auto 0.06 X10*3/uL (0.00-0.03); Imm Gran Pct Auto 0.6 % (0.0-0.4); Lymphocytes Absolute Auto 1.7 X10*3/uL (1.2-4.9); Lymphocytes Percent Auto 18.5 % (20-40); Mean Corpuscular HGB Conc 36.8 g/dl (31.0-36.0); Mean Corpuscular Hemoglobin 31.8 pg (27.0-33.0); Mean Corpuscular Volume 86.4 fL (80.0-98.0); Mean Platelet Volume 9.5 fL (9.4-12.4); Monocytes Percent Auto 10.6 % (2-11); Neutrophils Absolute Auto 6.4 x10*3/uL (2.0-8.3); Neutrophils Percent Auto 68.4 % (45-73); Platelet Count 192 X10*3/uL (160-400); Red Blood Count 5.38 X10*6/uL (4.60-5.80); Red Cell Distribution Width 12.6 % (11.0-16.0); White Blood Count 9.4 X10*3/uL (4.8-10.8)
[2024-07-14 11:46] LABS: Ethanol 371 mg/dL
--- NOTE | 2024-07-14 12:43 | ED_ITS ---
HPI - Alcohol General Chief Complaint: ETOH/Substance Use Stated Complaint: SI STATEMENTS TO MOM,THREW SELF DOWN STAIRS PER EM Time Seen by Provider: 07/14/24 11:16 Source: patient, EMS, RN notes reviewed and old records reviewed Mode of arrival: EMS History of Present Illness ED Provider: Millie Lafleur PA-C HPI narrative: 34-year-old male with a past medical history alcohol abuse, MDD, alcoholic hepatitis, presenting to the ED via EMS from home s/p mother called 911 due to patient throwing himself down stairs and making SI statements. Patient denies SI at this time, states he tripped and fell down 3 stairs with + head strike, denies LOC. admits to drinking about 5-6 nips today. Reports history of ETOH withdrawal, denies withdrawal seizures. Reports THC use, denies other illicit substances. Denies HI, auditory visual hallucinations at this time. Denies neck/back pain, abdominal pain, CP Related Data Home Medications ?Medication ?Instructions ?Recorded ?Confirmed No Known Home Meds 07/14/24 07/14/24 Allergies Allergy/AdvReac Type Severity Reaction Status Date / Time No Known Allergies Allergy Verified 07/14/24 11:11 Review of Systems 2 Review of Systems: Yes all other systems are reviewed and are negative Constitutional: Constitutional: Reports as per [facility] Past Medical History Attestation statement: The following information was validated with the patient. Source: old records reviewed Medical History Alcoholic hepatitis Alcohol-induced psychosis, with delusions MDD (major depressive disorder), recurrent episode, moderate No pertinent past medical history Social History Social History Household Members: Family Household Members Other:: Mother & Brother Housing: Condominium Do you presently have visiting nurse or other home services: No Alcohol intake: current Alcohol intake frequency: 3 or more drinks per day Alcohol type: hard liquor Patient Tobacco Use Status: Current everyday Tobacco user Tobacco use type: Cigarette Cigarette Packs Per Day: 0.5 Cigarettes Per Day: 10.0 Years Smoked: 15 Smoked in Last 30 Days: Yes e-Cigarette/Vaping Use: Former Use Second Hand Smoke Exposure: Yes Use of substances other than those prescribed or required for medical reasons: No Substance Use Type: Marijuana Advance Directives: Yes Advance Directives on File: Yes Advance Directives Date on File: 05/07/24 Healthcare Proxy: Yes (Mother Louise Nobles) Guardian: No service: No Sexual orientation: Straight/Heterosexual Physical Exam ED Vital Signs: Vital Signs - 24 hr 07/14/24 11:07 07/14/24 11:19 07/14/24 16:17 Temperature 98.0 F Pulse Rate 116 H 84 Respiratory Rate 20 16 16 Blood Pressure 124/80 132/88 Pulse Oximetry 95 97 Oxygen Delivery Method Room Air Room Air 07/14/24 21:24 Temperature 99.8 F Pulse Rate 124 H Respiratory Rate 20 Blood Pressure 123/74 Pulse Oximetry 94 Oxygen Delivery Method Room Air BMI result Body Mass Index 20.0 Const Other: +ETOH odor on breath, intoxicated General: cooperative and no acute distress Orientation/consciousness: patient oriented x3 HENMT Head: Yes normal to inspection and Yes atraumatic Ears: hearing grossly normal bilaterally General nose exam: Normal external nose present Face and sinus: Yes normal facial exam Eyes General: appearance normal, both eyes and all related structures EOM: EOMs intact bilaterally Neck Neck: Yes normal visual inspection and Yes no meningeal signs Resp Effort & Inspection: normal respiratory effort and no respiratory distress Auscultation: clear to auscultation bilaterally Cardio Rate: regular rate Heart sounds: S1 normal heart sound present and S2 normal heart sound present GI Inspection: Yes normal to inspection Palpation (GI): Soft to palpation, nontender, no guarding and not rigid General: Yes no CVA tenderness Back/Spine/Pelvis Other: No midline cervical/thoracic/lumbar spinous tenderness/step-off or deformity Back: no CVA tenderness Skin Rashes: no rashes Wounds: no wounds Neuro General: patient oriented x3, tone normal, moves all extremities, no meningeal signs, no focal motor deficits and CN's II-XI intact bilaterally Cranial nerves: Yes CN's II-XII intact bilaterally Gait exam (Neuro): Normal gait present Extrem General: Yes normal to inspection Psych Thought content: suicidality and no homicidality Course Course Course Narrative: -anion gap of 25 likely from chronic alcohol abuse -chronically elevated AST/ALT -UA with blood/RBCs, not infected -ethanol 371 1909--CT head/brain wo IV con/CT cervical spine wo IV con IMPRESSION: 1. No evidence of acute intracranial hemorrhage or edematous territorial infarction. 2. No evidence of acute fracture or traumatic subluxation of the cervical spine. Mild to moderate degenerative spondyloarthropathy of the cervical spine. -physician observation initiated as patient needs more time for sobriety & CARE team eval -2100-- ED care transferred to DANIEL Melara pending CARE eval 07/15/2024 at 07:33 hours, Dr. Adan Bianchi'sNote: Physician observation continued Patient was been in the emergency department for 20 hours. Patient has been evaluated by the care team in his on a Section 12. The patient is in in-patient bed search. There were no reported incidents on this patient by the overnight staff. Patient will remain in the emergency department Behavioral Health Unit until disposition can be determined or until patient's symptoms improve over time. Medical Decision Making Medical Decision Making MDM Narrative: 34-year-old male with a past medical history alcohol abuse, MDD, alcoholic hepatitis, presenting to the ED via EMS from home s/p mother called 911 due to patient throwing himself down stairs and making SI statements. Patient denies SI at this time, states he tripped and fell down 3 stairs with + head strike, denies LOC. on exam tachycardic, EtOH odor on breath, intoxicated, no evidence of trauma/midline spinous tenderness. Concern for ICH vs fractures vs ETOH intoxication vs ? SI although patient denies at present. No evidence of ETOH withdrawal at this time Plan: Labs, head/C-spine CT, CARE team consult Please refer to course for remaining clinical decision making, interpretation of labs/imaging results, and discussions with consultants and/or family members. Differential Diagnosis Differential Diagnoses: The differential diagnosis associated with the presentation includes As above Admission/Observation Consideration of admission/observation: Escalation of care including admission/observation considered Consult Healthcare Provider Management of the patient was discussed with: Behavioral Health Provider Lab Data [facility] Lab Attestation statement: I reviewed the patient's lab results. 07/14/24 11:29 07/14/24 11:29 Labs: Lab Results 07/14/24 07/14/24 Range/Units 11:29 16:01 WBC 9.4 (4.8-10.8) X10*3/uL RBC 5.38 (4.60-5.80) X10*6/uL Hgb 17.1 (14.0-18.0) g/dl Hct 46.5 (42.0-52.0) % MCV 86.4 (80.0-98.0) fL MCH 31.8 (27.0-33.0) pg MCHC 36.8 H (31.0-36.0) g/dl RDW 12.6 (11.0-16.0) % Plt Count 192 (160-400) X10*3/uL MPV 9.5 (9.4-12.4) fL Immature Gran % (Auto) 0.6 H (0.0-0.4) % Neut % (Auto) 68.4 (45-73) % Lymph % (Auto) 18.5 L (20-40) % [place] % (Auto) 10.6 (2-11) % Eos % (Auto) 1.1 (0-4) % Baso % (Auto) 0.8 (0-2) % Lymph # (Auto) 1.7 (1.2-4.9) X10*3/uL [place] # (Auto) 1.0 (0.1-1.2) X10*3/uL Eos # (Auto) 0.1 (0.0-0.4) X10*3/uL Baso # (Auto) 0.1 (0.0-0.2) X10*3/uL Abs Immat Gran (auto) 0.06 H (0.00-0.03) X10*3/uL Absolute Neuts (auto) 6.4 (2.0-8.3) x10*3/uL Absolute Nucleated RBC 0.000 (0.0-0.012) X10*3/uL Nucleated RBC % (auto) 0.0 (0.0-0.2) /100WBC Sodium 138 (135-145) mmol/L Potassium 3.3 (3.3-5.1) mmol/L Chloride 99 (96-108) mmol/L Carbon Dioxide 17 L (22-29) mmol/L Anion Gap 25 H (12-20) BUN 11 (9-16) mg/dL Creatinine 1.08 (0.5-1.4) mg/dL Estim Creat Clear Calc 97.9 Estimated GFR > 60 Random Glucose 105 (60-115) mg/dL Calcium 9.3 (8.4-10.2) mg/dL Magnesium 2.1 (1.6-2.6) mg/dL Total Bilirubin 0.4 (0.0-1.0) mg/dL Direct Bilirubin 0.2 (0.0-0.5) mg/dL AST 221 H (5-37) U/L ALT 168 H (0-40) U/L Alkaline Phosphatase 61 (39-117) U/L Total Protein 7.8 (6.5-8.0) g/dL Albumin 4.8 (3.5-5.0) g/dL Urine Color Dark Yellow Urine Appearance Clear Urine pH 6.0 (5.0-9.0) Ur Specific [place] 1.020 (1.005-1.025) Urine Protein 30 (1+) H (Neg-Trace) mg/dL Urine Glucose (UA) Negative (Negative) mg/dL Urine Ketones 15 (Negative) mg/dL Urine Blood Trace H (Negative) Urine Nitrite Negative (Negative) Ur Leukocyte Esterase Small (1+) H (Negative) Urine RBC 11-20 H (0-2) /HPF Urine WBC 0-5 (0-5) /HPF Ur Squamous Epith Cells 3-5 (0-2) /HPF Urine Bacteria None Seen (None Seen) Hyaline Casts 11-20 (0-2) /LPF Urine Opiates Screen Not Detected (Not Detect) Ur Buprenorphine Scrn Not Detected (Not Detect) ng/mL Ur Oxycodone Screen Not Detected (Not Detect) ng/mL Urine Methadone Screen Not Detected (Not Detect) ng/mL Urine Fentanyl Screen Not Detected (Not Detect) Ur Barbiturates Screen Not Detected (Not Detect) Ur Phencyclidine Scrn Not Detected (Not Detect) Ur Amphetamines Screen Not Detected (Not Detect) U Benzodiazepines Scrn Not Detected (Not Detect) Urine Cocaine Screen Not Detected (Not Detect) U Marijuana (THC) Screen Not Detected (Not Detect) Ethyl Alcohol 371 H* mg/dL Radiology Impression Discussion of test interpretation with radiology: I have reviewed the radiologist's reading. External Record Review External record reviewed: Inpatient record, Office record, Outpatient record, Prior outpatient labs, Prior outpatient radiology, Primary care record and Outside ED record Tests considered The following testing was considered but not selected: As above Chronic Conditions Patient?s care impacted by: Other Social Determinants Patient?s care significantly limited by Social Determinants of Health including: Alcoholism and drug addiction in family, Problems related to primary support group and Other Social Determinant of Health Medications Administered Generic Name Dose Route Start Last Admin Trade Name Freq PRN Reason Stop Dose Admin Lorazepam 1 mg 07/14/24 11:52 07/15/24 01:32 Lorazepam 1 Mg Tablet PO 1 mg Q4H PRN Administration Alcohol Withdrawal Discontinued Medications Generic Name Dose Route Start Last Admin Trade Name Freq PRN Reason Stop Dose Admin Ondansetron HCl 4 mg 07/14/24 21:34 07/14/24 21:36 Ondansetron Odt 4 Mg Tab.Rapdis TRANSLINGU 07/14/24 21:35 4 mg ONCE ONE Administration Discharge Plan Discharge Clinical Impression: Suicidal ideation Alcoholic intoxication Qualifiers: Complication of substance-induced condition: uncomplicated Qualified Code(s): F 10.920 - Alcohol use, unspecified with intoxication, uncomplicated Patient Disposition: Still a Patient Prescriptions: No Action No Known Home Meds Print Language: Montserratian
[2024-07-14 15:45] LABS: Alanine Aminotransferase 168 U/L (0-40); Albumin Level 4.8 g/dL (3.5-5.0); Aspartate Amino Transferase 221 U/L (5-37); Bilirubin Direct 0.2 mg/dL (0.0-0.5); Bilirubin Total 0.4 mg/dL (0.0-1.0); Magnesium 2.1 mg/dL (1.6-2.6); Total Protein 7.8 g/dL (6.5-8.0)
[2024-07-14 15:59] LABS: Alkaline Phosphatase 61 U/L (39-117)
[2024-07-14 16:16] LABS: Amphetamine Screen Urine Not Detected (Not Detect); Appearance Urine Clear; Barbiturates, Urine Not Detected (Not Detect); Benzodiazepines Screen Urine Not Detected (Not Detect); Buprenorphine Scr Not Detected (Not Detect); Cannabinoid Screen Urine Not Detected (Not Detect); Cocaine Screen Urine Not Detected (Not Detect); Color Urine Dark Yellow; Fentanyl, urine Not Detected (Not Detect); Glucose Urine UA Negative (Negative); Leukocyte Esterase Urine Small (1+) (Negative); Methadone Screen, Urine Not Detected (Not Detect); Nitrite Urine Negative (Negative); Opiate Screen Urine Not Detected (Not Detect); Oxycodone Screen Urine Not Detected (Not Detect); Phencyclidine Screen Urine Not Detected (Not Detect); UMIC TRIGGER UACC YES; Urine Blood Trace (Negative); Urine Ketones 15 mg/dL (Negative); Urine Protein 30 (1+) mg/dL (Neg-Trace)
[2024-07-14 16:17] VITALS: BP 132/88; PULSE 84; RESP 16; O2SAT 97
[2024-07-14 16:44] LABS: Anion Gap 25 (12-20); Blood Urea Nitrogen 11 mg/dL (9-16); Calcium 9.3 mg/dL (8.4-10.2); Carbon Dioxide 17 mmol/L (22-29); Chloride 99 mmol/L (96-108); Creatinine Clr Calc Pharmacy 97.9; Estimated Glomerular Filt Rate > 60; Glucose Random 105 mg/dL (60-115); Potassium 3.3 mmol/L (3.3-5.1); Sodium 138 mmol/L (135-145)
[2024-07-14 16:58] LABS: Bacteria Urine None Seen (None Seen); UACC Culture Trigger YES; WBC Urine 0-5 /HPF (0-5)
--- NOTE | 2024-07-14 17:25 | PC.NURSE ---
Patient sleeping, respirations even and unlabored, no apparent distress is noted at this time
--- NOTE | 2024-07-14 18:55 | PC.NURSE ---
patient appears to remain at rest at present respirations are even and unlabored patient appears in no distress.
--- NOTE | 2024-07-14 21:00 | MHC.CARE ---
CARE Team attempted to contact Pt's mother and the number is not in-service. It was initially reported that Pt was seen by [facility]'s co-response clinician however [facility] denies this. Shaylee from [facility] crisis reports Pt was evaluated yesterday 07/13/24 due to the concern of agitation, aggression, diminished ADL's, self-dialoguing and continued alcohol-use. Disposition at this time was a medical admission.
[2024-07-14 21:24] VITALS: BP 123/74; PULSE 124; RESP 20; TEMP 37.7; O2SAT 94
[2024-07-14] MEDS: LORazepam 1 MG TABLET PO (21:36)
[2024-07-14] MEDS: Ondansetron ODT 4 MG TAB.RAPDIS TRANSLINGU (21:36)
[2024-07-15] MEDS: LORazepam 1 MG TABLET PO ×2 (01:32→23:58)
--- NOTE | 2024-07-15 07:23 | PC.NURSE ---
Assumed care of patient at 0645, patient appears to be in no apparent distress this am, ate breakfast, now sleeping, respirations even and unlabored. Continue plan of care for inpatient bedsearch
--- NOTE | 2024-07-15 10:53 | PHA.MEDREC ---
Pharmacy Consult ? Medication Reconciliation Pharmacy has completed the medication reconciliation. RN completed med rec, rp reviewed. No claim history.
[2024-07-15 16:48] VITALS: BP 132/88; PULSE 87; RESP 16; O2SAT 97
--- NOTE | 2024-07-15 16:49 | PC.NURSE ---
Patient sleeping intermittently throughout the day, offering no complaints when awake, no apparent distress noted
[2024-07-15 20:00] VITALS: BP 133/93; PULSE 101; TEMP 36.5; O2SAT 97
--- NOTE | 2024-07-15 21:12 | PC.NURSE ---
Patient refusing Ativan taper stating he does not want any medications and that he is just fine
[2024-07-16 04:00] VITALS: BP 133/82; PULSE 86; TEMP 37.1; O2SAT 95
[2024-07-16] MEDS: LORazepam 1 MG TABLET PO ×4 (04:16→16:28)
--- NOTE | 2024-07-16 05:43 | PC.ADMIT ---
Sohan is a 34 year old male admitted to on a 12B, on 15 minute safety checks. He was admitted to [facility] emergency department after making suicidal statements to his mother while he was intoxicated. He states he tripped at the bottom of the stairs at their home, but his mother reported that he threw himself down three stairs prior to her calling 911. He also has alcohol use disorder, and is on CIWAs every four hours. He is also on an Ativan taper, which is every 2 hours at the time of this writing. He has a history of alcoholic hepatitis, major depressive disorder, and alcohol induced psychosis with delusions (he reports that he hallucinates when he's drinking.) He reports THC use, but his urine is negative for all substances at this time. As of admission to , he was alert and oriented x3, but unsure about the date. He denies SI, HI, AH, and VH. 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 He rates his depression at 5/10, and his anxiety at 8/10. He is not able to sleep well this shift.
[2024-07-16] MEDS: Acetaminophen 325 MG TABLET 650 MG PO (09:09)
--- NOTE | 2024-07-16 15:04 | HO.PSYADMNOT ---
HPI Date of Service: 07/16/24 Chief Complaint: SI Sources of Information: patient interviewed, chart reviewed and crisis/core team assessment reviewed HPI Subjective Notes: Conditional Voluntary Healthcare Proxy: No Guardianship: No Medical Problems Affecting Mental Status: No Narrative: 34 yo male, hx of alcohol use disorder with psychosis, mood disorder to ER via Section XII. Pt's mother called to report pt was making suicidal statements and threw himself down the stairs. BAL 371, toxicology negative. Pt denies SI/HI upon eval in ER. Affirmed AH/VH. Reports alcohol is needed to sleep and drinking daily. He reports a current 72 hour binge to crisis. Reports drinking due to depression, hallucinations and the of father in 2022. He is not able to work due to perceptual alterations. Reports he had lived with father in [place], returned to [place] to live with mother and brother and father after his return. Today, pt is in bed, on his stomach and interviews without eye contact. He reports falling down the steps at home, denied SI. Identifes drinking as a major issue. 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 Reports daily drinking, one pint plus daily Past Psychiatric History: IP: Jun 10 [facility] OP: Denies Medical Evaluation Reviewed: Yes [facility] Medical History (Updated 07/16/24 @ 18:09 by Kylie Rivas, FIELD TRAFFIC INVESTIGATOR) Grief Alcoholic hepatitis Alcohol-induced psychosis, with delusions MDD (major depressive disorder), recurrent episode, moderate No pertinent past medical history Family History: Father: Alcoholism Paternal family history of substance abuse Trauma history Social History: [facility] mother and brother and [place] Patient was living with his father in [place] until a few months ago when his father from alcohol-related complications; he then came to live with his mother and brother -history of incarceration for resisting arrest, disorderly conduct, and multiple DUIs. Substance History: Reports a long history of alcohol use. Hx of OUI with incarceration, parole in [place] with court ordered tx. Hx of many treatment interventions Trauma History: Loss of his father Diagnostics Vital Signs (24Hr): Vital Signs - 24 hr 07/15/24 16:48 07/15/24 20:00 07/16/24 04:00 Temperature 97.7 F 98.8 F Pulse Rate 87 101 H 86 Respiratory Rate 16 Blood Pressure 132/88 133/93 H 133/82 Pulse Oximetry 97 97 95 Oxygen Delivery Method Room Air Room Air Room Air BMI result Body Mass Index 20.0 Labs 07/14/24 11:29 07/14/24 11:29 Labs: Laboratory Results - last 48 hr 07/14/24 07/14/24 11:29 16:01 Sodium 138 Potassium 3.3 Chloride 99 Carbon Dioxide 17 L Anion Gap 25 H BUN 11 Creatinine 1.08 Estim Creat Clear Calc 97.9 Estimated GFR > 60 Random Glucose 105 Calcium 9.3 Magnesium 2.1 Total Bilirubin 0.4 Direct Bilirubin 0.2 AST 221 H ALT 168 H Alkaline Phosphatase 61 Total Protein 7.8 Albumin 4.8 Urine Color Dark Yellow Urine Appearance Clear Urine pH 6.0 Ur Specific [place] 1.020 Urine Protein 30 (1+) H Urine Glucose (UA) Negative Urine Ketones 15 Urine Blood Trace H Urine Nitrite Negative Ur Leukocyte Esterase Small (1+) H Urine RBC 11-20 H Urine WBC 0-5 Ur Squamous Epith Cells 3-5 Urine Bacteria None Seen Hyaline Casts 11-20 Urine Opiates Screen Not Detected Ur Buprenorphine Scrn Not Detected Ur Oxycodone Screen Not Detected Urine Methadone Screen Not Detected Urine Fentanyl Screen Not Detected Ur Barbiturates Screen Not Detected Ur Phencyclidine Scrn Not Detected Ur Amphetamines Screen Not Detected U Benzodiazepines Scrn Not Detected Urine Cocaine Screen Not Detected U Marijuana (THC) Screen Not Detected Imaging Radiology Impressions: ITS Impressions Head CT 07/14/24 11:48 IMPRESSION: 1. No evidence of acute intracranial hemorrhage or edematous territorial infarction. 2. No evidence of acute fracture or traumatic subluxation of the cervical spine. Mild to moderate degenerative spondyloarthropathy of the cervical spine. Electronically signed by: Abram Odell DO 07/14/2024 06:30 PM EST RP Cervical Spine CT 07/14/24 15:49 IMPRESSION: 1. No evidence of acute intracranial hemorrhage or edematous territorial infarction. 2. No evidence of acute fracture or traumatic subluxation of the cervical spine. Mild to moderate degenerative spondyloarthropathy of the cervical spine. Electronically signed by: Abram Odell DO 07/14/2024 06:30 PM EST RP Meds/Allergies Meds Home Medications ?Medication ?Instructions ?Recorded ?Confirmed ?Type No Known Home Meds 07/14/24 07/14/24 History Allergies Allergies Allergy/AdvReac Type Severity Reaction Status Date / Time No Known Allergies Allergy Verified 07/14/24 11:11 Mental Status Exam Mental Status Exam Patient Appearance: Fatigued Patient Orientation: Person, Place, Time and Situation Level of Consciousness: Alert Patient Behavior: Distractible and Poor Eye Contact Mood Description: Depressed Affect Description: Flat Patient Cognition Impaired: No Ability to Follow Directions: Fair Speech Pattern: Garbled and Spontaneous Speech Memory Description: Episodic Impaired Hallucinations: Auditory Delusions: Present Perceptual Disturbances: Depersonalization and Derealization Thought Process: Rumination Thought Content: positive for Perseveration and positive for Suicidal Ideation (denies) Depressive Symptoms: Difficulty Sleeping, Unhappiness and Low Self Esteem Judgement: Poor Assessment & Plan Assessment & Plan (1) Alcoholic intoxication: Status: Acute Qualifiers: Complication of substance-induced condition: uncomplicated Qualified Code(s): F10.920 - Alcohol use, unspecified with intoxication, uncomplicated Code(s): F10.929 - Alcohol use, unspecified with intoxication, unspecified (2) Alcohol-induced psychosis, with delusions: Status: Acute Code(s): F10.950 - Alcohol use, unspecified with alcohol-induced psychotic disorder with delusions (3) MDD (major depressive disorder), recurrent episode, moderate: Status: Acute Code(s): F33.1 - Major depressive disorder, recurrent, moderate (4) Grief: Status: Acute Code(s): F43.21 - Adjustment disorder with depressed mood Plan Alcohol intoxication, alcohol use disorder, alcohol induced psychosis with perceptual alterations and delusions, major depression. Plan: Admit, CV, 15 minute checks CIWA Lorazepam prn per ciwa, MVI, thiamine, folic acid. Collateral contact Encourage milieu participation. Psychopharm consult when detox completed Monitor LFTS, currently significantly elevated. Consider Section 35 Patient educated on: therapeutic strategies Reason for continued inpatient stay Substantial Risk for: rapid decompensation and med/psych decompensation Statement Statement: I have reviewed the history and physical and performed a pertinent examination on my patient. No changes have occurred unless specified. If the History and Physical was not performed prior to admission, the Hospitalist's service will be consulted for completing the admission physical. Time Spent With Patient Time: Total time managing care of this patient today ____ minutes.
[2024-07-16 20:00] VITALS: BP 124/74; PULSE 78; RESP 16; TEMP 37.6; O2SAT 97
[2024-07-16] MEDS: traZODone HCL 50 MG TABLET PO (23:20)
--- NOTE | 2024-07-17 02:29 | PC.NURSE ---
Patient requested no vital signs to be taken after midnight or before 0700. Patient wants to be able to sleep, will answer questions for CIWA. He said if he feels he is having withdrawals he will allow vitals to be done.
[2024-07-17 08:35] VITALS: BP 105/64; PULSE 67; RESP 16; TEMP 36.8; O2SAT 97
[2024-07-17] MEDS: Thiamine HCL 100 MG TABLET PO (08:36)
[2024-07-17] MEDS: Folic Acid 1 MG TABLET PO (08:36)
[2024-07-17] MEDS: Multivitamin TABLET 1 TAB PO (08:36)
--- NOTE | 2024-07-17 10:49 | P.PNPSI_ITS ---
Subjective Subjective Date of Service: 07/17/24 Reason For Visit: SI Interim History: Patient without evidence of withdrawals. Patient reports his mother called the ambulance claiming he threw himself down the stairs but says that he fell because he was drunk. Patient reports poor sleep. He has an odd affect. He smiles inappropriately discussing reasons for admission and appears internally preoccupied. He is agreeable to taking Seroquel because he has tried that in the past. Adamantly denies SI. Asking about when he can be discharged. Review of Systems Review of Systems Yes all other systems are reviewed and are negative Constitutional: Reports as per HPI Mental Status Exam Mental Status Exam Patient Appearance: Fatigued Patient Orientation: Person, Place, Time and Situation Level of Consciousness: Alert Patient Behavior: Guarded, Passive and Distractible Mood Description: Depressed Affect Description: Apathetic, Cheerful (incongruent) and Flat Patient Cognition Impaired: No Ability to Follow Directions: Good Speech Pattern: Spontaneous Speech Memory Description: Episodic Impaired Hallucinations: None (Appears internally preoccupied) Diagnostics Vital Signs (24Hr): Vital Signs - 24 hr 07/16/24 20:00 07/17/24 08:35 Temperature 99.6 F 98.2 F Pulse Rate 78 67 Respiratory Rate 16 16 Blood Pressure 124/74 105/64 Pulse Oximetry 97 97 Oxygen Delivery Method Room Air Room Air BMI result Body Mass Index 20.0 Labs 07/14/24 11:29 07/14/24 11:29 Imaging Radiology Impressions: ITS Impressions Head CT 07/14/24 11:48 IMPRESSION: 1. No evidence of acute intracranial hemorrhage or edematous territorial infarction. 2. No evidence of acute fracture or traumatic subluxation of the cervical spine. Mild to moderate degenerative spondyloarthropathy of the cervical spine. Electronically signed by: Abram Odell DO 07/14/2024 06:30 PM EST RP Cervical Spine CT 07/14/24 15:49 IMPRESSION: 1. No evidence of acute intracranial hemorrhage or edematous territorial infarction. 2. No evidence of acute fracture or traumatic subluxation of the cervical spine. Mild to moderate degenerative spondyloarthropathy of the cervical spine. Electronically signed by: Abram Odell DO 07/14/2024 06:30 PM EST RP Medications Medications Current Medications Acetaminophen (Acetaminophen 325 Mg Tablet) 650 mg PO Q6H PRN PRN Reason: Headache/Pain Mild Scale (1-3) Last Admin: 07/16/24 09:09 Dose: 650 mg Al Hydroxide/Mg Hydroxide (Magnesium Hydrox/Alum Hydrox 30 Ml Oral.Susp) 30 ml PO Q6H PRN PRN Reason: Heartburn/Nausea Folic Acid (Folic Acid 1 Mg Tablet) 1 mg PO DAILY [facility] Last Admin: 07/17/24 08:36 Dose: 1 mg Hydroxyzine HCl (Hydroxyzine Hcl 25 Mg Tablet) 25 mg PO Q6H PRN PRN Reason: Anxiety Lorazepam (Lorazepam 1 Mg Tablet) 1 mg PO Q2H PRN PRN Reason: ciwa 6-10 Lorazepam (Lorazepam 1 Mg Tablet) 2 mg PO Q2H PRN PRN Reason: ciwa 11+ Magnesium Hydroxide (Milk Of Magnesia 30 Ml Oral.Susp) 30 ml PO DAILY PRN PRN Reason: Constipation Multivitamins/Vitamin C (Multivitamin Tablet) 1 tab PO DAILY [facility] Last Admin: 07/17/24 08:36 Dose: 1 tab Nicotine Polacrilex (Nicotine Polacrilex 2 Mg Gum) 4 mg BUCCAL Q2H PRN PRN Reason: Nicotine Cravings Thiamine HCl (Thiamine Hcl 100 Mg Tablet) 100 mg PO DAILY [facility] Last Admin: 07/17/24 08:36 Dose: 100 mg Trazodone HCl (Trazodone Hcl 50 Mg Tablet) 50 mg PO BEDTIME MRX1 PRN PRN Reason: Insomnia Last Admin: 07/16/24 23:20 Dose: 50 mg Allergies Allergies Allergy/AdvReac Type Severity Reaction Status Date / Time No Known Allergies Allergy Verified 07/14/24 11:11 Assessment & Plan Assessment & Plan (1) Alcoholic intoxication: Qualifiers: Complication of substance-induced condition: uncomplicated Qualified Code(s): F10.920 - Alcohol use, unspecified with intoxication, uncomplicated Status: Acute Code(s): F10.929 - Alcohol use, unspecified with intoxication, unspecified (2) Alcohol-induced psychosis, with delusions: Status: Acute Code(s): F10.950 - Alcohol use, unspecified with alcohol-induced psychotic disorder with delusions (3) MDD (major depressive disorder), recurrent episode, moderate: Status: Acute Code(s): F33.1 - Major depressive disorder, recurrent, moderate (4) Grief: Status: Acute Code(s): F43.21 - Adjustment disorder with depressed mood Plan Alcohol intoxication, alcohol use disorder, alcohol induced psychosis with perceptual alterations and delusions, major depression. Plan: Admit, CV, 15 minute checks CIWA Lorazepam prn per ciwa, MVI, thiamine, folic acid. Collateral contact Encourage milieu participation. Psychopharm consult when detox completed Monitor LFTS, currently significantly elevated. Consider Section 35 07/17: Start Seroquel 50 mg HS tonight and increase to 100 mg HS tomorrow if tolerated. Reason for continued inpatient stay Substantial Risk for: harm to self, rapid decompensation and med/psych decompensation Time Spent With Patient Time: Total time managing care of this patient today ____ minutes.
[2024-07-17] MEDS: hydrOXYzine HCL 25 MG TABLET PO (15:54)
[2024-07-17] MEDS: LORazepam 1 MG TABLET PO (15:55)
[2024-07-17 20:00] VITALS: BP 120/67; PULSE 78; RESP 16; TEMP 36.7; O2SAT 98
[2024-07-17] MEDS: QUEtiapine Fumarate 50 MG TABLET PO (21:01)
[2024-07-18] MEDS: Folic Acid 1 MG TABLET PO (09:08)
[2024-07-18] MEDS: Thiamine HCL 100 MG TABLET PO (09:08)
[2024-07-18] MEDS: Multivitamin TABLET 1 TAB PO (09:08)
--- NOTE | 2024-07-18 09:17 | P.PNPSI_ITS ---
Subjective Subjective Date of Service: 07/18/24 Reason For Visit: SI Interim History: Patient without evidence of withdrawals. He said Seroquel was helpful for sleep last night. However he woke up in the middle of the night. Suggested increase to 100 mg. Patient wasn't in agreement. Discussed having Extra Seroquel as PRN if he wakes up and he agreed to that. He is not having any withdrawal symptoms and not scoring on CIWA. He is isolating in his room most of the time. Depressed affect. Says his mood is off and on depressed and anxious. Denies AH. Review of Systems Review of Systems Yes all other systems are reviewed and are negative Constitutional: Reports as per HPI Mental Status Exam Mental Status Exam Patient Appearance: Fatigued Patient Orientation: Person, Place, Time and Situation Level of Consciousness: Alert Patient Behavior: Guarded, Passive and Distractible Mood Description: Depressed Affect Description: Apathetic, Cheerful (incongruent) and Flat Patient Cognition Impaired: No Ability to Follow Directions: Good Speech Pattern: Spontaneous Speech Memory Description: Episodic Impaired Diagnostics Vital Signs (24Hr): Vital Signs - 24 hr 07/17/24 20:00 Temperature 98.1 F Pulse Rate 78 Respiratory Rate 16 Blood Pressure 120/67 Pulse Oximetry 98 Oxygen Delivery Method Room Air BMI result Body Mass Index 20.0 Labs 07/14/24 11:29 07/14/24 11:29 Imaging Radiology Impressions: ITS Impressions Head CT 07/14/24 11:48 IMPRESSION: 1. No evidence of acute intracranial hemorrhage or edematous territorial infarction. 2. No evidence of acute fracture or traumatic subluxation of the cervical spine. Mild to moderate degenerative spondyloarthropathy of the cervical spine. Electronically signed by: Abram Odell DO 07/14/2024 06:30 PM EST RP Cervical Spine CT 07/14/24 15:49 IMPRESSION: 1. No evidence of acute intracranial hemorrhage or edematous territorial infarction. 2. No evidence of acute fracture or traumatic subluxation of the cervical spine. Mild to moderate degenerative spondyloarthropathy of the cervical spine. Electronically signed by: Abram Odell DO 07/14/2024 06:30 PM EST RP Medications Medications Current Medications Acetaminophen (Acetaminophen 325 Mg Tablet) 650 mg PO Q6H PRN PRN Reason: Headache/Pain Mild Scale (1-3) Last Admin: 07/16/24 09:09 Dose: 650 mg Al Hydroxide/Mg Hydroxide (Magnesium Hydrox/Alum Hydrox 30 Ml Oral.Susp) 30 ml PO Q6H PRN PRN Reason: Heartburn/Nausea Folic Acid (Folic Acid 1 Mg Tablet) 1 mg PO DAILY [facility] Last Admin: 07/18/24 09:08 Dose: 1 mg Hydroxyzine HCl (Hydroxyzine Hcl 25 Mg Tablet) 25 mg PO Q6H PRN PRN Reason: Anxiety Last Admin: 07/17/24 15:54 Dose: 25 mg Lorazepam (Lorazepam 1 Mg Tablet) 1 mg PO Q2H PRN PRN Reason: ciwa 6-10 Last Admin: 07/17/24 15:55 Dose: 1 mg Lorazepam (Lorazepam 1 Mg Tablet) 2 mg PO Q2H PRN PRN Reason: ciwa 11+ Magnesium Hydroxide (Milk Of Magnesia 30 Ml Oral.Susp) 30 ml PO DAILY PRN PRN Reason: Constipation Multivitamins/Vitamin C (Multivitamin Tablet) 1 tab PO DAILY [facility] Last Admin: 07/18/24 09:08 Dose: 1 tab Nicotine Polacrilex (Nicotine Polacrilex 2 Mg Gum) 4 mg BUCCAL Q2H PRN PRN Reason: Nicotine Cravings Quetiapine Fumarate (Quetiapine Fumarate 100 Mg Tablet) 100 mg PO BEDTIME [facility] Thiamine HCl (Thiamine Hcl 100 Mg Tablet) 100 mg PO DAILY [facility] Last Admin: 07/18/24 09:08 Dose: 100 mg Trazodone HCl (Trazodone Hcl 50 Mg Tablet) 50 mg PO BEDTIME MRX1 PRN PRN Reason: Insomnia Last Admin: 07/16/24 23:20 Dose: 50 mg Allergies Allergies Allergy/AdvReac Type Severity Reaction Status Date / Time No Known Allergies Allergy Verified 07/14/24 11:11 Assessment & Plan Assessment & Plan (1) Alcoholic intoxication: Qualifiers: Complication of substance-induced condition: uncomplicated Qualified Code(s): F10.920 - Alcohol use, unspecified with intoxication, uncomplicated Status: Acute Code(s): F10.929 - Alcohol use, unspecified with intoxication, unspecified (2) Alcohol-induced psychosis, with delusions: Status: Acute Code(s): F10.950 - Alcohol use, unspecified with alcohol-induced psychotic disorder with delusions (3) MDD (major depressive disorder), recurrent episode, moderate: Status: Acute Code(s): F33.1 - Major depressive disorder, recurrent, moderate (4) Grief: Status: Acute Code(s): F43.21 - Adjustment disorder with depressed mood Plan Alcohol intoxication, alcohol use disorder, alcohol induced psychosis with perceptual alterations and delusions, major depression. Plan: Admit, CV, 15 minute checks CIWA Lorazepam prn per ciwa, MVI, thiamine, folic acid. Collateral contact Encourage milieu participation. Psychopharm consult when detox completed Monitor LFTS, currently significantly elevated. Consider Section 35 07/17: Start Seroquel 50 mg HS tonight and increase to 100 mg HS tomorrow if tolerated. 07/18: Doesn't want to increase Seroquel to 100 mg so will offer 50 mg PRN if he has a hard time falling asleep or wakes up at night. Continue current management and treatment plan. Reason for continued inpatient stay Substantial Risk for: harm to self and rapid decompensation Time Spent With Patient Time: Total time managing care of this patient today ____ minutes.
[2024-07-18 10:23] VITALS: BP 103/55; PULSE 69; RESP 16; TEMP 37; O2SAT 97
[2024-07-18] MEDS: QUEtiapine Fumarate 50 MG TABLET PO (20:47)
[2024-07-19 08:00] VITALS: BP 97/53; PULSE 63; RESP 16; TEMP 36.6; O2SAT 98
--- NOTE | 2024-07-19 10:18 | HO.PSYCHPN ---
Subjective Subjective Date of Service: 07/19/24 Reason For Visit: SI Subjective Notes: Section 12B (07/20/24) Healthcare Proxy: No Guardianship: No Medical Problems Affecting Mental Status: No Interim History: Pt reports he wants to discharge tomorrow. He is not interested in continuing residential treatment for addiction. We discussed the sharp elevation in LFT's since last admission and what the outcome may be should he continue to drink. I have asked pt to reconsider his options and remain in pt for a bit longer so we can assist him in taking the next step to recovery. Team is attempting to reach his mother to discuss Section 35. Medication Compliance: Yes Side effects from medications: No Attending Groups: No Review of Systems Acute medical concerns: No Review of Systems Review of Systems Yes all other systems are reviewed and are negative Mental Status Exam Mental Status Exam Patient Appearance: Appropriate Patient Orientation: Person, Place, Time and Situation Level of Consciousness: Alert Patient Behavior: Passive and Distractible Mood Description: Apprehensive Affect Description: Flat Patient Cognition Impaired: No Ability to Follow Directions: Good Speech Pattern: Spontaneous Speech Memory Description: Episodic Impaired Hallucinations: None Delusions: Not Present Thought Content: positive for Circumstantial Depressive Symptoms: Low Self Esteem Judgement: Fair Diagnostics Vital Signs (24Hr): Vital Signs - 24 hr 07/18/24 10:23 07/19/24 08:00 Temperature 98.6 F 98 F Pulse Rate 69 63 Respiratory Rate 16 16 Blood Pressure 103/55 L 97/53 L Pulse Oximetry 97 98 Oxygen Delivery Method Room Air Room Air BMI result Body Mass Index 20.0 Labs 07/14/24 11:29 07/14/24 11:29 Imaging Radiology Impressions: ITS Impressions Head CT 07/14/24 11:48 IMPRESSION: 1. No evidence of acute intracranial hemorrhage or edematous territorial infarction. 2. No evidence of acute fracture or traumatic subluxation of the cervical spine. Mild to moderate degenerative spondyloarthropathy of the cervical spine. Electronically signed by: Abram Odell DO 07/14/2024 06:30 PM [facility] [place] Cervical Spine CT 07/14/24 15:49 IMPRESSION: 1. No evidence of acute intracranial hemorrhage or edematous territorial infarction. 2. No evidence of acute fracture or traumatic subluxation of the cervical spine. Mild to moderate degenerative spondyloarthropathy of the cervical spine. Electronically signed by: Abram Odell DO 07/14/2024 06:30 PM [facility] Medications Medications Current Medications Acetaminophen (Acetaminophen 325 Mg Tablet) 650 mg PO Q6H PRN PRN Reason: Headache/Pain Mild Scale (1-3) Last Admin: 07/16/24 09:09 Dose: 650 mg Al Hydroxide/Mg Hydroxide (Magnesium Hydrox/Alum Hydrox 30 Ml Oral.Susp) 30 ml PO Q6H PRN PRN Reason: Heartburn/Nausea Folic Acid (Folic Acid 1 Mg Tablet) 1 mg PO DAILY [facility] Last Admin: 07/19/24 09:06 Dose: Not Given Lorazepam (Lorazepam 1 Mg Tablet) 1 mg PO Q2H PRN PRN Reason: ciwa 6-10 Last Admin: 07/17/24 15:55 Dose: 1 mg Lorazepam (Lorazepam 1 Mg Tablet) 2 mg PO Q2H PRN PRN Reason: ciwa 11+ Magnesium Hydroxide (Milk Of Magnesia 30 Ml Oral.Susp) 30 ml PO DAILY PRN PRN Reason: Constipation Multivitamins/Vitamin C (Multivitamin Tablet) 1 tab PO DAILY [facility] Last Admin: 07/19/24 09:06 Dose: Not Given Nicotine Polacrilex (Nicotine Polacrilex 2 Mg Gum) 4 mg BUCCAL Q2H PRN PRN Reason: Nicotine Cravings Quetiapine Fumarate (Quetiapine Fumarate 50 Mg Tablet) 50 mg PO BEDTIME [facility] Last Admin: 07/18/24 20:47 Dose: 50 mg Quetiapine Fumarate (Quetiapine Fumarate 50 Mg Tablet) 50 mg PO BID PRN PRN Reason: Anxiety insomnia Thiamine HCl (Thiamine Hcl 100 Mg Tablet) 100 mg PO DAILY [facility] Last Admin: 07/19/24 09:06 Dose: Not Given Trazodone HCl (Trazodone Hcl 50 Mg Tablet) 50 mg PO BEDTIME MRX1 PRN PRN Reason: Insomnia Last Admin: 07/16/24 23:20 Dose: 50 mg Allergies Allergies Allergy/AdvReac Type Severity Reaction Status Date / Time No Known Allergies Allergy Verified 07/14/24 11:11 Assessment & Plan Assessment & Plan (1) Alcoholic intoxication: Qualifiers: Complication of substance-induced condition: uncomplicated Qualified Code(s): F10.920 - Alcohol use, unspecified with intoxication, uncomplicated Status: Acute Code(s): F10.929 - Alcohol use, unspecified with intoxication, unspecified (2) Alcohol-induced psychosis, with delusions: Status: Acute Code(s): F10.950 - Alcohol use, unspecified with alcohol-induced psychotic disorder with delusions (3) MDD (major depressive disorder), recurrent episode, moderate: Status: Acute Code(s): F33.1 - Major depressive disorder, recurrent, moderate (4) Grief: Status: Acute Code(s): F43.21 - Adjustment disorder with depressed mood Plan Alcohol intoxication, alcohol use disorder, alcohol induced psychosis with perceptual alterations and delusions, major depression. Plan: Admit, CV, 15 minute checks CIWA Lorazepam prn per ciwa, MVI, thiamine, folic acid. Collateral contact Encourage milieu participation. Psychopharm consult when detox completed Monitor LFTS, currently significantly elevated. Consider Section 35 07/17: Start Seroquel 50 mg HS tonight and increase to 100 mg HS tomorrow if tolerated. 07/18: Doesn't want to increase Seroquel to 100 mg so will offer 50 mg PRN if he has a hard time falling asleep or wakes up at night. Continue current management and treatment plan. 07/19: Encouraged pt to sign CV and continue work on longer term addiction treatment. He will consider, but is wanting to leave on 07/20. Reason for continued inpatient stay Substantial Risk for: rapid decompensation and med/psych decompensation Time Spent With Patient Time: Total time managing care of this patient today ____ minutes.
--- NOTE | 2024-07-20 11:13 | HO.PSYCHPN ---
Subjective Subjective Date of Service: 07/20/24 Reason For Visit: SI Interim History: Met with patient; discussed with team; review chart Patient calm, pleasant and cooperative on approach. He says he does not want any medications at this time. Discussed recent events and patient explains that he was never suicidal and never made suicidal comments; he acknowledges he fell down the stairs because he was intoxicated but he was completely unintentional. He also acknowledges that he has AH but it is only when he is drinking and never otherwise. Singing Telegram Performer discussed the negative outcomes from continuing drinking and patient acknowledged that he is concerned as well but says I am not ready to do anything about it yet... Patient has not scored on CIWA; he remains in good behavioral and impulse control in the unit without any SI, AH, AVH. Mental Status Exam Mental Status Exam Narrative: Pt is alert and oriented; behavior is cooperative, polite and calm; patient is not in distress; dressed in hospital attire with unkempt hair; mood is described as good and affect congruent; eye contact appropriate; Speech is normal rate, volume and prosody and not pressured; no psychomotor agitation/retardation present; thought process is organized and goal directed; Thought content is on discharge; otherwise pertinent to relevant topics and without any delusional content, paranoid ideations or grandiosity; denies any SI/HI. There is no evidence of perceptual disturbance. Patients insight and judgment appear intact. Diagnostics Vital Signs (24Hr): BMI result Body Mass Index 20.0 Labs 07/14/24 11:29 07/14/24 11:29 Imaging Radiology Impressions: ITS Impressions Head CT 07/14/24 11:48 IMPRESSION: 1. No evidence of acute intracranial hemorrhage or edematous territorial infarction. 2. No evidence of acute fracture or traumatic subluxation of the cervical spine. Mild to moderate degenerative spondyloarthropathy of the cervical spine. Electronically signed by: Abram Odell DO 07/14/2024 06:30 PM [facility] [place] [place] Cervical Spine CT 07/14/24 15:49 IMPRESSION: 1. No evidence of acute intracranial hemorrhage or edematous territorial infarction. 2. No evidence of acute fracture or traumatic subluxation of the cervical spine. Mild to moderate degenerative spondyloarthropathy of the cervical spine. Electronically signed by: Abram Odell DO 07/14/2024 06:30 PM [facility] [place] [place] Medications Medications Current Medications Acetaminophen (Acetaminophen 325 Mg Tablet) 650 mg PO Q6H PRN PRN Reason: Headache/Pain Mild Scale (1-3) Last Admin: 07/16/24 09:09 Dose: 650 mg Al Hydroxide/Mg Hydroxide (Magnesium Hydrox/Alum Hydrox 30 Ml Oral.Susp) 30 ml PO Q6H PRN PRN Reason: Heartburn/Nausea Folic Acid (Folic Acid 1 Mg Tablet) 1 mg PO DAILY [facility] Last Admin: 07/20/24 09:30 Dose: Not Given Lorazepam (Lorazepam 1 Mg Tablet) 1 mg PO Q2H PRN PRN Reason: ciwa 6-10 Last Admin: 07/17/24 15:55 Dose: 1 mg Lorazepam (Lorazepam 1 Mg Tablet) 2 mg PO Q2H PRN PRN Reason: ciwa 11+ Magnesium Hydroxide (Milk Of Magnesia 30 Ml Oral.Susp) 30 ml PO DAILY PRN PRN Reason: Constipation Multivitamins/Vitamin C (Multivitamin Tablet) 1 tab PO DAILY [facility] Last Admin: 07/20/24 09:30 Dose: Not Given Nicotine Polacrilex (Nicotine Polacrilex 2 Mg Gum) 4 mg BUCCAL Q2H PRN PRN Reason: Nicotine Cravings Quetiapine Fumarate (Quetiapine Fumarate 50 Mg Tablet) 50 mg PO BEDTIME [facility] Last Admin: 07/19/24 21:33 Dose: Not Given Quetiapine Fumarate (Quetiapine Fumarate 50 Mg Tablet) 50 mg PO BID PRN PRN Reason: Anxiety insomnia Thiamine HCl (Thiamine Hcl 100 Mg Tablet) 100 mg PO DAILY [facility] Last Admin: 07/20/24 09:31 Dose: Not Given Trazodone HCl (Trazodone Hcl 50 Mg Tablet) 50 mg PO BEDTIME MRX1 PRN PRN Reason: Insomnia Last Admin: 07/16/24 23:20 Dose: 50 mg Allergies Allergies Allergy/AdvReac Type Severity Reaction Status Date / Time No Known Allergies Allergy Verified 07/14/24 11:11 Assessment & Plan Assessment & Plan (1) MDD (major depressive disorder), recurrent episode, moderate: Status: Acute Code(s): F33.1 - Major depressive disorder, recurrent, moderate (2) Alcoholic intoxication: Qualifiers: Complication of substance-induced condition: uncomplicated Qualified Code(s): F10.920 - Alcohol use, unspecified with intoxication, uncomplicated Status: Resolved Code(s): F10.929 - Alcohol use, unspecified with intoxication, unspecified (3) Alcohol-induced psychosis, with delusions: Status: Resolved Code(s): F10.950 - Alcohol use, unspecified with alcohol-induced psychotic disorder with delusions (4) Grief: Status: Acute Code(s): F43.21 - Adjustment disorder with depressed mood Plan Alcohol intoxication, alcohol use disorder, alcohol induced psychosis with perceptual alterations and delusions, major depression. Plan: Admit, CV, 15 minute checks CIWA Lorazepam prn per ciwa, MVI, thiamine, folic acid. Collateral contact Encourage milieu participation. Psychopharm consult when detox completed Monitor LFTS, currently significantly elevated. Consider Section 35 07/17: Start Seroquel 50 mg HS tonight and increase to 100 mg HS tomorrow if tolerated. 07/18: Doesn't want to increase Seroquel to 100 mg so will offer 50 mg PRN if he has a hard time falling asleep or wakes up at night. Continue current management and treatment plan. 07/19: Encouraged pt to sign CV and continue work on longer term addiction treatment. He will consider, but is wanting to leave on 07/20. 07/20 Patient calm, pleasant and cooperative on approach. He says he does not want any medications at this time. Discussed recent events and patient explains that he was never suicidal and never made suicidal comments; he acknowledges he fell down the stairs because he was intoxicated but he was completely unintentional. He also acknowledges that he has AH but it is only when he is drinking and never otherwise. Singing Telegram Performer discussed the negative outcomes from continuing drinking and patient acknowledged that he is concerned as well but says I am not ready to do anything about it yet... Patient has not scored on CIWA over past several days. Patient has remained in good behavioral and impulse control in the unit without any SI, AH, AVH. Patient's 72 hours is due and he is asking for discharge. He acknowledges his struggles with alcohol abuse and even the potential dangers that come from it; he also acknowledges his symptoms of depression and anxiety. Patient has full capacity, is organized in speech and behavior and understands these issues, however he is clear that he does not want any treatment for this and does not feel ready for it, other than meeting with a therapist. Patient will very likely continue to abuse alcohol and remains at risk for the negative consequences of ongoing alcohol abuse. However patient is not in imminent risk for harm to self or others and does not rise to the level of involuntary commitment. His request for discharge honored. Patient educated on: diagnosis, medication risk/benefits and therapeutic strategies Informed Consent: understands Reason for continued inpatient stay Substantial Risk for: stable for discharge Time Spent With Patient Time: Total time managing care of this patient today ____ minutes.
--- NOTE | 2024-07-20 11:28 | P.DS_ITS ---
DS: Providers Provider Date of Service: 07/20/24 Date of admission: 07/15/24 17:13 Primary care physician: Unknown Physician DS: Diagnosis Discharge Diagnosis (1) MDD (major depressive disorder), recurrent episode, moderate: Status: Acute (2) Alcoholic intoxication: Status: Resolved (3) Alcohol-induced psychosis, with delusions: Status: Resolved (4) Grief: Status: Acute DS: Medications Discharge Medications Home Medications: Home Medications ?Medication ?Instructions ?Recorded ?Confirmed No Known Home Meds 07/14/24 07/14/24 Mental Status Exam Mental Status Exam Narrative: Pt is alert and oriented; behavior is cooperative, polite and calm; patient is not in distress; dressed in hospital attire with unkempt hair; mood is described as good and affect congruent; eye contact appropriate; Speech is normal rate, volume and prosody and not pressured; no psychomotor agitation/retardation present; thought process is organized and goal directed; Thought content is on discharge; otherwise pertinent to relevant topics and without any delusional content, paranoid ideations or grandiosity; denies any SI/HI. There is no evidence of perceptual disturbance. Patients insight and judgment appear intact. Data Data Completed and Pending Completed studies during hospitalization [Text1]: 07/14/24 07/14/24 11:29 16:01 WBC 9.4 RBC 5.38 Hgb 17.1 Hct 46.5 MCV 86.4 MCH 31.8 MCHC 36.8 H RDW 12.6 Plt Count 192 MPV 9.5 Immature Gran % (Auto) 0.6 H Neut % (Auto) 68.4 Lymph % (Auto) 18.5 L Iron % (Auto) 10.6 Eos % (Auto) 1.1 Baso % (Auto) 0.8 Lymph # (Auto) 1.7 Iron # (Auto) 1.0 Eos # (Auto) 0.1 Baso # (Auto) 0.1 Abs Immat Gran (auto) 0.06 H Absolute Neuts (auto) 6.4 Absolute Nucleated RBC 0.000 Nucleated RBC % (auto) 0.0 Sodium 138 Potassium 3.3 Chloride 99 Carbon Dioxide 17 L Anion Gap 25 H BUN 11 Creatinine 1.08 Estim Creat Clear Calc 97.9 Estimated GFR > 60 Random Glucose 105 Calcium 9.3 Magnesium 2.1 Total Bilirubin 0.4 Direct Bilirubin 0.2 AST 221 H ALT 168 H Alkaline Phosphatase 61 Total Protein 7.8 Albumin 4.8 Urine Color Dark Yellow Urine Appearance Clear Urine pH 6.0 Ur Specific [place] 1.020 Urine Protein 30 (1+) H Urine Glucose (UA) Negative Urine Ketones 15 Urine Blood Trace H Urine Nitrite Negative Ur Leukocyte Esterase Small (1+) H Urine RBC 11-20 H Urine WBC 0-5 Ur Squamous Epith Cells 3-5 Urine Bacteria None Seen Hyaline Casts 11-20 Urine Opiates Screen Not Detected Ur Buprenorphine Scrn Not Detected Ur Oxycodone Screen Not Detected Urine Methadone Screen Not Detected Urine Fentanyl Screen Not Detected Ur Barbiturates Screen Not Detected Ur Phencyclidine Scrn Not Detected Ur Amphetamines Screen Not Detected U Benzodiazepines Scrn Not Detected Urine Cocaine Screen Not Detected U Marijuana (THC) Screen Not Detected Ethyl Alcohol 371 H* 07/14/24 Unknown Urine clean catch - Clean Catch Midstream Urine Culture - Final Imaging Diagnostic Imaging Impressions Head CT 07/14/24 11:48 IMPRESSION: 1. No evidence of acute intracranial hemorrhage or edematous territorial infarction. 2. No evidence of acute fracture or traumatic subluxation of the cervical spine. Mild to moderate degenerative spondyloarthropathy of the cervical spine. Electronically signed by: bAram Odell DO 07/14/2024 06:30 PM EST [facility] Cervical Spine CT 07/14/24 15:49 IMPRESSION: 1. No evidence of acute intracranial hemorrhage or edematous territorial infarction. 2. No evidence of acute fracture or traumatic subluxation of the cervical spine. Mild to moderate degenerative spondyloarthropathy of the cervical spine. Electronically signed by: Abram Odell DO 07/14/2024 06:30 PM EST RP DS: Summary Hospital Course Hospital Course: HPI: 34 yo male, hx of alcohol use disorder with psychosis, mood disorder to ER via Section XII. Pt's mother called to report pt was making suicidal statements and threw himself down the stairs. BAL 371, toxicology negative. Pt denies SI/HI upon eval in ER. Affirmed AH/VH. Reports alcohol is needed to sleep and drinking daily. He reports a current 72 hour binge to crisis. Reports drinking due to depression, hallucinations and the of father in 2022. He is not able to work due to perceptual alterations. Reports he had lived with father in [place], returned to [place] to live with mother and brother and father after his return. Today, pt is in bed, on his stomach and interviews without eye contact. He reports falling down the steps at home, denied SI. Identifes drinking as a major issue. 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 Reports daily drinking, one pint plus daily HOSPITAL COURSE: Patient admitted, depressed, started on CIWA, low scoring. Trouble sleeping 07/17: Start Seroquel 50 mg HS tonight and increase to 100 mg HS tomorrow if tolerated. 07/18: Doesn't want to increase Seroquel to 100 mg so will offer 50 mg PRN if he has a hard time falling asleep or wakes up at night. Continue current management and treatment plan. 07/19: Encouraged pt to sign CV and continue work on longer term addiction treatment. He will consider, but is wanting to leave on 07/20. 07/20 Patient calm, pleasant and cooperative on approach. He says he does not want any medications at this time. Discussed recent events and patient explains that he was never suicidal and never made suicidal comments; he acknowledges he fell down the stairs because he was intoxicated but he was completely unintentional. He also acknowledges that he had AH but it's resolved and is only present when he is drinking, never otherwise. [employer] discussed the negative outcomes from continuing drinking and patient acknowledged that he is concerned as well but says I am not ready to do anything about it yet... Patient has not scored on CIWA over past several days. -comic writer discussed case with BRONSON Tirado who was considering Section 35, but decided on discharge and to leave decision of Section 35 up to patient's mother to petition; she is reaching out to patient's mother to explain this. Patient has remained in good behavioral and impulse control in the unit without any SI, AH, AVH. Patient's 72 hours is due and he is asking for discharge. He acknowledges his struggles with alcohol abuse and even the potential dangers that come from it; he also acknowledges his symptoms of depression and anxiety. Patient has full capacity, is organized in speech and behavior and understands these issues, however he is clear that he does not want any treatment for this and does not feel ready for it, other than meeting with a therapist. Patient will very likely continue to abuse alcohol and remains at risk for the negative consequences of ongoing alcohol abuse. However patient is not in imminent risk for harm to self or others and does not rise to the level of involuntary commitment. His request for discharge honored. Patient educated on: diagnosis, medication risk/benefits and therapeutic st rategies Time spent discussing smoking cessation with patient: 3 to 10 minutes Status at Discharge Functional status at discharge: independent ambulation Overall status at discharge: patient is back to baseline Time Spent with Patient Time attestation: Total time managing care of this patient today __40__ minutes. Time spent: Greater than 30 minutes Specific discharge activities: Met with patient; discussed with team; charting Discharge Plan Discharge Anticipated Discharge Date/Time: 07/20/24 11:13 Patient Disposition: Home, Self-Care Discharge Diagnosis: MDD, recurrent, moderate without psychosis Referrals: [facility] (therapy) [Other] - 1 Week (Patient referred to [facility] for outpatient therapy. SW will call with follow-up appointments after discharge ) [facility] (psychiatry) [Other] - 1 Week (Patient referred to [facility] for psychiatric medication management services. SW will call with follow-up appointments after discharge) Physician,Mary J [Primary Care Provider] - 1 Week Discharge Medications: No Action No Known Home Meds Discharge Orders: Discharge Order (Routine); Ordered 07/20/24 Ordered By: Soy Gale Diet: Regular diet Activity on Discharge: As tolerated Stand Alone Forms: Patient Portal Discharge page Print Language: Kinyarwanda Care Plan Goals: Maintain mood and safe behaviors Consider medications for treatment of depression Consider pursuing sobriety Practice coping skills Continue with outpatient providers and reach out to them as needed Health Concerns: Mood stability and behaviors Sobriety Plan of Treatment: Follow up with your PCP, therapist provider and other outpatient providers regarding above concerns Assessment: Risk assessment at time of discharge:? Patient was interviewed prior to discharge and found to be fully oriented and without any SI or HI. Patient has improved insight and judgment and wants to continue treatment. Patient is not in imminent risk of harm to self or others and has a safety plan that includes pre senting to the closest ER or calling 911 if feeling unsafe.? Patient has been observed closely by nursing and unit staff throughout admission; patient has not engaged in any behaviors that suggest dangerousness to self or others and has demonstrated appropriate behaviors and impulse control
== END 2024-07-20 12:04 | disposition home or self-care (01) | DRG 751 ==
LOC: HO.ED 19:13 → HO.PM5 07-15 17:20
PROVIDERS: Physician Assistant; Admitting Provider Psychiatry & Neurology Psychiatry; Emergency Provider Emergency Medicine Emergency Medical Services; Visit Provider Clinical Nurse Specialist Psychiatric/Mental Health, Adult
DX: F33.1 Major depressive disorder, recurrent, moderate (principal); R45.851 Suicidal ideations; F10.950 Alcohol use, unspecified with alcohol-induced psychotic disorder with delusions; F10.929 Alcohol use, unspecified with intoxication, unspecified; F43.21 Adjustment disorder with depressed mood; Y90.8 Blood alcohol level of 240 mg/100 ml or more
CPT/HCPCS: 36415; 70450; 72125; 80048; 80076; 80307; 81001; 83735; 85025; 87086; 99285

== ENCOUNTER → 2024-07-15 17:13 | Outpatient (BNV) | payer OTHER, SELFPAY | PROVIDERS: Admitting Provider Psychiatry & Neurology Psychiatry; Emergency Provider Emergency Medicine Emergency Medical Services; Visit Provider Clinical Nurse Specialist Psychiatric/Mental Health, Adult | DX: F33.1 Major depressive disorder, recurrent, moderate (principal); F10.920 Alcohol use, unspecified with intoxication, uncomplicated; F10.950 Alcohol use, unspecified with alcohol-induced psychotic disorder with delusions; Y90.8 Blood alcohol level of 240 mg/100 ml or more; F43.21 Adjustment disorder with depressed mood | CPT/HCPCS: 90792; 99232; 99239; 99499 ==

== ENCOUNTER 2024-09-11 11:36 | Emergency (ER) | payer OTHER, SELFPAY ==
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
[2024-09-11 11:46] VITALS: BP 121/87; PULSE 99; RESP 16; O2SAT 98; BMI 27.9
[2024-09-11 12:12] LABS: MANUAL DIFF FLAG NO
[2024-09-11 12:13] LABS: Basophils Absolute Auto 0.1 X10*3/uL (0.0-0.2); Basophils Percent Auto 1.6 % (0-2); Eosinophils Absolute Auto 0.2 X10*3/uL (0.0-0.4); Eosinophils Percent Auto 3.3 % (0-4); Hematocrit 45.5 % (42.0-52.0); Hemoglobin 16.4 g/dl (14.0-18.0); Imm Gran Abs Auto 0.04 X10*3/uL (0.00-0.03); Imm Gran Pct Auto 0.6 % (0.0-0.4); Lymphocytes Absolute Auto 2.1 X10*3/uL (1.2-4.9); Lymphocytes Percent Auto 29.3 % (20-40); Mean Corpuscular Hemoglobin 31.8 pg (27.0-33.0); Mean Corpuscular Volume 88.2 fL (80.0-98.0); Mean Platelet Volume 8.9 fL (9.4-12.4); Monocytes Absolute Auto 0.6 X10*3/uL (0.1-1.2); Monocytes Percent Auto 8.5 % (2-11); Neutrophils Percent Auto 56.7 % (45-73); Platelet Count 357 X10*3/uL (160-400); Red Blood Count 5.16 X10*6/uL (4.60-5.80); Red Cell Distribution Width 12.7 % (11.0-16.0); White Blood Count 7.1 X10*3/uL (4.8-10.8)
[2024-09-11 12:28] LABS: Alanine Aminotransferase 18 U/L (0-40); Alkaline Phosphatase 36 U/L (39-117); Anion Gap 14 (12-20); Aspartate Amino Transferase 27 U/L (5-37); Bilirubin Total 0.3 mg/dL (0.0-1.0); Blood Urea Nitrogen 7 mg/dL (9-16); Calcium 8.2 mg/dL (8.4-10.2); Carbon Dioxide 28 mmol/L (22-29); Chloride 107 mmol/L (96-108); Creatinine Clr Calc Pharmacy 154.2; Estimated Glomerular Filt Rate > 60; Ethanol 337 mg/dL; Glucose Random 89 mg/dL (60-115); Magnesium 2.3 mg/dL (1.6-2.6); Potassium 4.8 mmol/L (3.3-5.1); Sodium 144 mmol/L (135-145); Total Protein 6.6 g/dL (6.5-8.0)
[2024-09-11 16:41] LABS: Amphetamine Screen Urine Not Detected (Not Detect); Barbiturates, Urine Not Detected (Not Detect); Benzodiazepines Screen Urine Not Detected (Not Detect); Buprenorphine Scr Not Detected (Not Detect); Cannabinoid Screen Urine Not Detected (Not Detect); Cocaine Screen Urine Not Detected (Not Detect); Fentanyl, urine Not Detected (Not Detect); Methadone Screen, Urine Not Detected (Not Detect); Opiate Screen Urine Not Detected (Not Detect); Oxycodone Screen Urine Not Detected (Not Detect); Phencyclidine Screen Urine Not Detected (Not Detect)
[2024-09-11 21:52] VITALS: BP 117/72; PULSE 96; RESP 18; TEMP 37.1; O2SAT 95
[2024-09-12] MEDS: LORazepam 1 MG TABLET 2 MG PO (02:41)
[2024-09-12 02:51] VITALS: BP 118/73; PULSE 68; RESP 17; TEMP 37.1; O2SAT 96
--- NOTE | 2024-09-12 07:36 | PC.NURSE ---
Assumed care of patient at 0645, patient appears to be sleeping soundly, respirations even and unlabored, no apparent distress is noted. continue plan of care for CARE team mayra
--- NOTE | 2024-09-12 12:27 | PHA.MEDREC ---
Pharmacy Consult ? Medication Reconciliation Pharmacy has completed the medication reconciliation. Reviewed med rec done by nursing (Natali).
--- NOTE | 2024-09-12 12:50 | MHC.CARE ---
Patient evaluated by the CARE Team, he does not require an inpatient psychiatric admission at this time, recommended disposition is discharge with recovery resources. ED provider, Dr. Batres updated and in agreement with plan
[2024-09-12 13:18] VITALS: BP 118/66; PULSE 84; RESP 16; TEMP 36.4; O2SAT 97
--- NOTE | 2024-09-13 12:33 | MHC.CARE ---
[facility] referral completed.
== END 2024-09-12 13:21 | disposition home or self-care (01) ==
PROVIDERS: Physician Assistant; Emergency Provider Emergency Medicine
DX: F10.120 Alcohol abuse with intoxication, uncomplicated (principal); Y90.8 Blood alcohol level of 240 mg/100 ml or more; F33.1 Major depressive disorder, recurrent, moderate; R45.851 Suicidal ideations; F41.9 Anxiety disorder, unspecified; F43.21 Adjustment disorder with depressed mood; K70.10 Alcoholic hepatitis without ascites; F17.210 Nicotine dependence, cigarettes, uncomplicated; F12.90 Cannabis use, unspecified, uncomplicated
CPT/HCPCS: 36415; 80053; 80307; 83735; 85025; 99284; 99285; S9485

== ENCOUNTER 2024-12-21 19:21 | Emergency (ER) | payer OTHER, SELFPAY ==
[2024-12-21 19:25] VITALS: BP 162/112; PULSE 83; O2SAT 95
--- NOTE | 2024-12-21 19:34 | PC.NURSE ---
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 belongings placed on shelf 2.
[2024-12-21 19:39] VITALS: BP 146/99; PULSE 108; RESP 16; TEMP 37.1; O2SAT 96; BMI 29.3
[2024-12-21 19:42] VITALS: BP 146/99; PULSE 108; RESP 16; TEMP 37.1; O2SAT 96
--- NOTE | 2024-12-21 19:56 | ECG_ITS ---
Test Reason : SUBSTANCE ABUSE Blood Pressure : */* mmHG Vent. Rate : 106 BPM Atrial Rate : 106 BPM P-R Int : 134 ms QRS Dur : 88 ms QT Int : 318 ms P-R-T Axes : 64 65 63 degrees QTcB Int : 422 ms Sinus tachycardia Otherwise normal ECG When compared with ECG of 13-Jul-2024 21:03, T wave inversion no longer evident in Inferior leads Referred By: Daniel Syed Electronically Signed By: LUANN FREEMAN
[2024-12-21 21:08] LABS: MANUAL DIFF FLAG NO
[2024-12-21 21:09] LABS: Basophils Absolute Auto 0.1 X10*3/uL (0.0-0.2); Basophils Percent Auto 0.7 % (0-2); Eosinophils Absolute Auto 0.1 X10*3/uL (0.0-0.4); Eosinophils Percent Auto 0.6 % (0-4); Hematocrit 46.3 % (42.0-52.0); Hemoglobin 16.7 g/dl (14.0-18.0); Imm Gran Abs Auto 0.03 X10*3/uL (0.00-0.03); Imm Gran Pct Auto 0.3 % (0.0-0.4); Lymphocytes Percent Auto 11.6 % (20-40); Mean Corpuscular HGB Conc 36.1 g/dl (31.0-36.0); Mean Corpuscular Volume 85.9 fL (80.0-98.0); Mean Platelet Volume 9.2 fL (9.4-12.4); Monocytes Percent Auto 10.9 % (2-11); Neutrophils Absolute Auto 6.6 x10*3/uL (2.0-8.3); Neutrophils Percent Auto 75.9 % (45-73); Platelet Count 190 X10*3/uL (160-400); Red Blood Count 5.39 X10*6/uL (4.60-5.80); Red Cell Distribution Width 12.5 % (11.0-16.0); White Blood Count 8.7 X10*3/uL (4.8-10.8)
[2024-12-21 21:20] LABS: Amphetamine Screen Urine Not Detected (Not Detect); Barbiturates, Urine Not Detected (Not Detect); Benzodiazepines Screen Urine Not Detected (Not Detect); Buprenorphine Scr Not Detected (Not Detect); Cannabinoid Screen Urine Not Detected (Not Detect); Cocaine Screen Urine Not Detected (Not Detect); Fentanyl, urine Not Detected (Not Detect); Methadone Screen, Urine Not Detected (Not Detect); Opiate Screen Urine Not Detected (Not Detect); Oxycodone Screen Urine Not Detected (Not Detect); Phencyclidine Screen Urine Not Detected (Not Detect)
[2024-12-21 21:25] LABS: Acetaminophen LAB < 3 mcg/mL (<30); Alanine Aminotransferase 106 U/L (0-40); Albumin Level 4.8 g/dL (3.5-5.0); Alkaline Phosphatase 48 U/L (39-117); Anion Gap 21 (12-20); Aspartate Amino Transferase 99 U/L (5-37); Blood Urea Nitrogen 13 mg/dL (9-16); Calcium 9.6 mg/dL (8.4-10.2); Carbon Dioxide 23 mmol/L (22-29); Chloride 100 mmol/L (96-108); Creatinine Clr Calc Pharmacy 116.7; Estimated Glomerular Filt Rate > 60; Ethanol < 10 mg/dL; Glucose Random 91 mg/dL (60-115); Potassium 4.3 mmol/L (3.3-5.1); Salicylate < 5.0 mg/dL (15-30); Sodium 140 mmol/L (135-145); Total Protein 7.7 g/dL (6.5-8.0)
--- NOTE | 2024-12-21 21:36 | ED_ITS ---
HPI - General Adult General Chief complaint: Psychiatric Symptoms Stated complaint: PD requests psych eval Time Seen by Provider: 12/21/24 19:48 Source: patient, RN notes reviewed and old records reviewed Mode of arrival: EMS Limitations: no limitations History of Present Illness ED Provider: Kunal MÉNDEZ narrative: 34-year-old male past medical history significant for major depressive disorder, alcohol abuse presenting for evaluation of reported paranoia. The patient reports that he recently inherited some money in his brother is upset by this. The patient reports that his brother made up a story that the patient is paranoid but the patient does not feel paranoid. Specifically the patient is not concerned about anybody coming to harm him from [place] Per EMS reports, the patient has been having paranoid delusions that in individual from [place] to hurt or kill him. The patient reports his brother got upset because the patient was knocking on the bathroom door to speak with his mother The patient reports that the door was locked and nobody was answering, so he was concerned that his mother was unwell The patient continued knocking on the door and ultimately the patient's brother called the police The patient denies SI, HI or any other complaints The patient reports that he is an alcoholic but has not had a drink at least 2 days. He denies any history of alcohol withdrawal symptoms The patient denies any known history of psychiatric disease He has been seen with the care team in the past for alcohol induced psychosis with delusions Related Data Home Medications ?Medication ?Instructions ?Recorded ?Confirmed No Known Home Meds 07/14/24 12/21/24 Allergies Allergy/AdvReac Type Severity Reaction Status Date / Time No Known Allergies Allergy Verified 12/21/24 19:41 Review of Systems 2 Constitutional: Constitutional: Denies body ache(s), Denies chills, Denies fever(s), Denies frequent falls and Denies headache(s) Eyes: Eyes: Denies blurry vision ENT: Denies headache(s) Cardiovascular: Cardiovascular: Denies chest pain and Denies dyspnea Respiratory: Respiratory: Denies cough and Denies dyspnea Gastrointestinal: Gastrointestinal: Denies abdominal pain, Denies nausea and Denies vomiting Musculoskeletal: Musculoskeletal: Denies back pain Integumentary/Breasts: Skin/Breast: Denies rash Neurologic: Denies frequent falls and Denies headache(s) Psychiatric: Psychiatric: Denies anxiety, Denies depression, Denies auditory hallucinations, Denies paranoia, Denies visual hallucinations, Denies homicidal ideation and Denies suicidal ideation PMFSH Past Medical History Medical History Grief Alcoholic hepatitis Alcohol-induced psychosis, with delusions MDD (major depressive disorder), recurrent episode, moderate No pertinent past medical history Social History Social History Household Members: Family Household Members Other:: Mother & Brother Housing: Unknown / Unable to assess Do you presently have visiting nurse or other home services: No Alcohol intake: current Alcohol intake frequency: a few times a week Alcohol type: hard liquor Patient Tobacco Use Status: Never used Tobacco Tobacco use type: Cigarette Cigarette Packs Per Day: 0.5 Cigarettes Per Day: 10.0 Years Smoked: 15 Smoked in Last 30 Days: Yes e-Cigarette/Vaping Use: Former Use Second Hand Smoke Exposure: Yes Use of substances other than those prescribed or required for medical reasons: Yes Substance Use Type: Heroin Substance Use Frequency: Occasionally Advance Directives: Yes Advance Directives on File: Yes Advance Directives Date on File: 05/07/24 Do you have a plan to hurt others: No Plan service: No Sexual orientation: Straight/Heterosexual Physical Exam ED Vital Signs: Vital Signs - 24 hr 12/21/24 19:39 12/21/24 19:42 Temperature 98.8 F 98.8 F Pulse Rate 108 H 108 H Respiratory Rate 16 16 Blood Pressure 146/99 H 146/99 H Pulse Oximetry 96 96 Oxygen Delivery Method Room Air Room Air BMI result Body Mass Index 29.3 Course Reevaluation(s) Reevaluation #1: Patient is seen with the care team and cleared for discharge, as he has no safety concern. He remains alert and oriented with no obvious paranoia. He denies suicidal ideation or depression. Time: 23:20 Medical Decision Making Medical Decision Making MDM Narrative: 34-year-old male past medical history as above presents for evaluation of reported psychosis and paranoia. The time of my evaluation the patient is alert and oriented. He is responding to all of my questions appropriately. He denies any paranoid delusions other. He does have a history of alcohol induced psychosis put his alcohol level is negative. He is mildly hypertensive but otherwise has no signs consistent with alcohol withdrawal. He is not restless, nauseous, vomiting or anxious. He appears well, he has a mild elevation of his LFTs likely related to previous alcohol abuse. Plan to have the patient evaluated by the care team to make sure the patient's story is consistent Differential Diagnosis Differential Diagnoses: The differential diagnosis associated with the presentation includes Paranoia Alcohol withdrawal Delirium tremens Delusions Psychosis Admission/Observation Consideration of admission/observation: Escalation of care including admission/observation considered Lab Data MDM Lab Attestation statement: I reviewed the patient's lab results. No leukocytosis or anemia. Normal platelet count. No electrolyte abnormalities. Mild transaminitis as above consistent with alcohol abuse 12/21/24 21:04 12/21/24 21:03 Labs: Lab Results 12/21/24 12/21/24 Range/Units 21:03 21:04 WBC 8.7 (4.8-10.8) X10*3/uL RBC 5.39 (4.60-5.80) X10*6/uL Hgb 16.7 (14.0-18.0) g/dl Hct 46.3 (42.0-52.0) % MCV 85.9 (80.0-98.0) fL MCH 31.0 (27.0-33.0) pg MCHC 36.1 H (31.0-36.0) g/dl RDW 12.5 (11.0-16.0) % Plt Count 190 D (160-400) X10*3/uL MPV 9.2 L (9.4-12.4) fL Immature Gran % (Auto) 0.3 (0.0-0.4) % Neut % (Auto) 75.9 H (45-73) % Lymph % (Auto) 11.6 L (20-40) % Maverick % (Auto) 10.9 (2-11) % Eos % (Auto) 0.6 (0-4) % Baso % (Auto) 0.7 (0-2) % Lymph # (Auto) 1.0 L (1.2-4.9) X10*3/uL Maverick # (Auto) 1.0 (0.1-1.2) X10*3/uL Eos # (Auto) 0.1 (0.0-0.4) X10*3/uL Baso # (Auto) 0.1 (0.0-0.2) X10*3/uL Abs Immat Gran (auto) 0.03 (0.00-0.03) X10*3/uL Absolute Neuts (auto) 6.6 (2.0-8.3) x10*3/uL Absolute Nucleated RBC 0.000 (0.0-0.012) X10*3/uL Nucleated RBC % (auto) 0.0 (0.0-0.2) /100WBC Sodium 140 (135-145) mmol/L Potassium 4.3 (3.3-5.1) mmol/L Chloride 100 (96-108) mmol/L Carbon Dioxide 23 (22-29) mmol/L Anion Gap 21 H (12-20) BUN 13 (9-16) mg/dL Creatinine 1.04 (0.5-1.4) mg/dL Estim Creat Clear Calc 116.7 Estimated GFR > 60 Random Glucose 91 (60-115) mg/dL Calcium 9.6 D (8.4-10.2) mg/dL Total Bilirubin 1.0 (0.0-1.0) mg/dL AST 99 H (5-37) U/L ALT 106 H (0-40) U/L Alkaline Phosphatase 48 (39-117) U/L Total Protein 7.7 (6.5-8.0) g/dL Albumin 4.8 (3.5-5.0) g/dL Salicylates < 5.0 L (15-30) mg/dL Urine Opiates Screen Not Detected (Not Detect) Ur Buprenorphine Scrn Not Detected (Not Detect) ng/mL Ur Oxycodone Screen Not Detected (Not Detect) ng/mL Urine Methadone Screen Not Detected (Not Detect) ng/mL Urine Fentanyl Screen Not Detected (Not Detect) Acetaminophen < 3 (<30) mcg/mL Ur Barbiturates Screen Not Detected (Not Detect) Ur Phencyclidine Scrn Not Detected (Not Detect) Ur Amphetamines Screen Not Detected (Not Detect) U Benzodiazepines Scrn Not Detected (Not Detect) Urine Cocaine Screen Not Detected (Not Detect) U Marijuana (THC) Screen Not Detected (Not Detect) Ethyl Alcohol < 10 mg/dL Discharge Plan Discharge Clinical Impression: Encounter for psychiatric assessment Patient Disposition: Home, Self-Care Additional Instructions: Follow all the instructions of the care team. Return to the ER if you have any new or worsening symptoms, especially if you have any thoughts of harming yourself or anybody else Prescriptions: No Action No Known Home Meds Interventions: [place]-Suicide Risk Severity Scale Last Done: 12/21/24 19:42 Print Language: Cymro
[2024-12-21 23:31] VITALS: BP 105/54; PULSE 104; RESP 18; TEMP 37; O2SAT 100
== END 2024-12-21 23:42 | disposition home or self-care (01) ==
PROVIDERS: Physician Assistant; Emergency Provider Internal Medicine
DX: F22 Delusional disorders (principal); F33.1 Major depressive disorder, recurrent, moderate; F10.10 Alcohol abuse, uncomplicated; Y90.0 Blood alcohol level of less than 20 mg/100 ml
CPT/HCPCS: 36415; 80053; 80143; 80179; 80307; 85025; 93005; 99284; 99285; S9485

== ENCOUNTER → 2024-12-21 19:56 | Outpatient (BNV) | payer OTHER, SELFPAY | PROVIDERS: Emergency Provider Internal Medicine; Visit Provider Internal Medicine | DX: R00.0 Tachycardia, unspecified (principal) | CPT/HCPCS: 93010 ==

== ENCOUNTER 2025-01-18 10:48 | Outpatient (AMB) | payer OTHER, SELFPAY ==
--- NOTE | 2025-01-18 10:53 | A.OFFPC_ITS ---
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 - Annual PE Intake Note: New patient to establish care Dye And Chemical Coordinator Required: No Allergies No Known Allergies Allergy (Verified 01/18/25 11:31) Medication List - Last Reconciled 01/18/25 by CRUZ Cordero No Known Home Meds Tobacco use date assessed: 01/18/25 Dental Screening Dental Screen Date: 01/18/25 Did you have a dental visit in the last 12 months?: No Did you have a dental problem in the last 6 months where you did not have access to dental care?: No Was dental information given to patient?: Yes HPI HPI Comments History of Present Illness Details 34 y/o M with MDD, Etoh induced psychosi s, Acute toxic metabolic encephalopathy likely due to alcohol intoxication, Alcohol use disorder, SI attempt Multiple psych admissions/detox/section 12 [place] [facility] [place] Tdap admin today History of Present Illness - The patient is a 34-year-old male pres enting with establishment of care for a complete physical examination. - History of major depressive disorder a nd alcohol use disorder with comorbid alcohol-induced psychosis and toxic metabolic encephalopathy. - Multiple psychiatric hospitalizations, most recent in 12/2024. - Incomplete engagement with [facility] due to phone issues and recent family obligations. - Recent bereavement with estate obligat ions in [place]. - Applied for Social Security disability benefits and seeking supportive documentation from today's visit. - Previous labs indicated high liver enz ymes, likely linked to alcohol use. Labs from 12/2024 ED visit reviewed. Past Surgical History Denies Family History Dad , unknown cause Social History - Recent bereavement due to father's pas sing in August. - Past interruptions in mental health cordero pport service engagement. - Current substance use disorder linked to alcohol. - Lives w/ Mom. Does not drive; has tra nsportation needs. + [facility] Health Maintenance - Tetanus vaccination offer discussed an d accepted, to keep up to date. - Referral plans made for counseling ser vices for mental health support. - Discussion of the importance of contin ued engagement in mental health services to prevent hospitalization. Review of Systems - Psychiatric: Reports major depressive disorder, denies current SI/HI. - Musculoskeletal: Denies dizziness when sitting up. - General: Denies current medication usa ge. - Gastrointestinal: Denies stomach pain or tenderness upon physical examination. Physical Exam General: Well developed, well nourished, in no acute distress. Appears stated age. Head: Normocephalic, atraumatic. Eyes: Pupils are equal, round and reactive to light and accommodation. Conjunctivae are clear. Vision grossly normal. Ears: TMs clear AU, EACS WNL Nose: Patent, without discharge. Neck: Supple, no adenopathy or thyromegaly. Breast: Edu on SBE Lungs: Clear to auscultation bilaterally. No rales, rhonchi or wheeze noted. Good air flow in all porter. Heart: Regular rate and rhythm. No murmurs, click, rubs or gallops are noted. Abdomen: Bowel sounds present in all quadrants. The abdomen is soft, nontender, with no masses or organomegaly noted. No hernias are noted. : Deferred. Reviewed PRETTY & recommendations for routine GUSSET [employer]KER Pulses: Peripheral pulses are equal and palpable bilaterally. Extremities: No clubbing, cyanosis nor edema is noted. Neurologic: Gait and station normal. Cranial Nerves 2-12 intact. Motor strength grossly symmetrical and intact. No sensory loss. Balance normal. Skin: No rashes, ulcers, or lesions noted. Turgor is good. Skin color is good. Hair and nails are without abnormalities. Psych: Normal eye contact, affect and mood appropriate, and normal interactions. Patient is alert and appropriate to context. Results - Labs: Previous labs show high liver en zymes from December. - Diagnostic: Liver enzymes linked to al cohol use disorder. Discussion Notes I discussed the importance of re-engaging in mental health support services and agreed to initiate a new referral to [facility] and [facility] to help w/ ETOH. We reviewed options for local specialists in [place] for liver evaluation and encouraged regular engagement with mental health resources. I offered the dell ent a tetanus vaccination, which he accepted, and discussed the application process for Social Security disability, illustrating that our office does not directly manage these applications but can provide visit summaries and documentation when requested. We also talked about transportation assistance provided by the front office secretary staff. Assessment and Plan 1. Major Depressive Disorder - Referral to [facility] for counseli ng and med mgmt . - Continuous psychiatric support emphasi zed. 2. Alcohol Use Disorder - Abstain from alcohol. - [facility] referral - Follow-up with liver specialist. 3. Health Maintenance - Tetanus vaccination administered. - Transportation support provided. Patient Instructions - Follow up with [facility] r support services. - Avoid alcohol consumption to protect [facility]. - Attend gastroenterology appointments a s arranged. - Receive tetanus shot today. - Seek transportation help from [facility] for future visits. - RTO 1 year for CPE, sooner PRN Consent Patient was informed and verbally consented to the use of an ambient scribe for clinic note documentation during this visit. An additional 30 minutes was spent addressing the problem(s) noted at todays visit. This includes time spent before the visit reviewing the chart, time spent during the visit, and time spent after the visit on documentation reviewing laboratory results, diagnostic imaging, medications, performing a medically necessary evaluation, counseling on diagnoses, care coordination, ordering appropriate tests, ordering appropriate medications, review of tests performed by other providers, reporting test results with the patient, communication with other healthcare providers. [facility] Medical History (Updated 01/18/25 @ 11:46 by Linda Morris, [facility]) Alcohol withdrawal syndrome Alcohol-induced psychosis, with delusions Alcoholic hepatitis Alcoholism Anxiety and depression Bipolar 1 disorder Grief MDD (major depressive disorder), recurrent episode, moderate Memory loss Schizophrenia Surgical History (Updated 01/18/25 @ 11:04 by Mahogany Portillo MA) No pertinent past surgical history Family History (Updated 01/18/25 @ 11:06 by Mahogany Portillo MA) Father Substance abuse HTN (hypertension) Mother HTN (hypertension) Social History (Updated 01/18/25 @ 10:54 by Mahogany Portillo MA) Household Members: Family Household Members Other:: Mother & Brother Both parents involved: No Caregiver staying overnight: No Housing: House Are you a primary physician primary care sports medicine to a significant other at home: No Do you presently have visiting nurse or other home services: No 75 years or older and lives alone: No Alcohol intake: current Alcohol intake frequency: a few times a month Patient Tobacco Use Status: Former Tobacco user Tobacco use type: Cigarette Cigarette Packs Per Day: 0.5 Cigarettes Per Day: 10.0 Years Smoked: 15 e-Cigarette/Vaping Use: Former Use Second Hand Smoke Exposure: Yes Substance Use Type: Heroin Advance Directives Date on File: 05/07/24 service: No Current occupational status: employed and unemployed Sexual orientation: Straight/Heterosexual Cognitive needs: No Hearing needs: No Vision needs: No Questionnaire PHQ-9 Over the last 2 weeks, how often have you been bothered by any of the following problems? 1. Little interest or pleasure in doing things: several days 2. Feeling down, depressed, or hopeless: several days 3. Trouble falling or staying asleep, or sleeping too much: several days 4. Feeling tired or having little energy: several days 5. Poor appetite or overeating: several days 6. Feeling bad about yourself - or that you are a failure or have let yourself or your family down: several days 7. Trouble concentrating on things, such as reading the newspaper or watching television: several days 8. Moving or speaking so slowly that other people could have noticed. Or the opposite - being so fidgety or restless that you have been moving around a lot more than usual: several days 9. Thoughts that you would be better off or of hurting yourself in some way: not at all Total score: 8 Depression Screening Interpretation: Positive Depression Screening Follow-up: Existing condition, In treatment and Community Mental Health Worker F/U Depression Screening Done: Yes 82195 - PHQ-9 Billing: Yes Source: Developed by Drs. Michael Mena, Colleen Strickland, Jerry Brooks and colleagues, with an educational dasha from [employer]. Thrive Questionnaire Date Thrive assessed: 01/18/25 I am a: Patient What is your living situation today?: I have a steady place to live Within the past 12 months, did the food you bought not last and you didn't have the money to get more?: Often true Within the past 12 months, did you worry whether your food would run out before you got money to buy more?: Often true Do you have trouble paying for medicines?: Yes Do you have trouble getting transportation to medical appointments?: Yes Do you have trouble paying your heating and electricity bill?: No Do you have trouble taking care of your child, family member or friend?: No Do you have trouble with day-to-day activities such as bathing, preparing meals, shopping, managing finances, etc.?: No Are you currently unemployed and looking for a job?: Yes Are you interested in more education?: Yes Please select the resources that you would like help with: Food, Paying for medicine, Transportation and Job search/training Currently or been in a relationship where the following occur: I choose not to answer THRIVE Score: 3 AUDIT C Alcohol Use Questionnaire (AUDIT-C) 1. How often do you have a drink containing alcohol?: 2-4 times a month 2. How many drinks containing alcohol do you have on a typical day when you are drinking?: 7 to 9 3. How often do you have six or more drinks on one occasion?: Monthly Total Score: 7 Score Reviewed/Action Taken: Yes GREGORY-7 AMB Questionnaire GREGORY-7 Date GREGORY - 7 assessed: 01/18/25 Feeling nervous, anxious, or on edge: 2 = More than half the days Not being able to stop or control worryin = Nearly every day Worrying too much about different things: 3 = Nearly every day Trouble relaxin = Nearly every day Being so restless that it is hard to sit still: 2 = More than half the days Becoming easily annoyed or irritable: 3 = Nearly every day Feeling afraid as if something awful might happen: 3 = Nearly every day Total GREGORY-7 score (0-4 normal; 5-9 mild; 10-14 moderate; 15-21 severe): 19 Source: Developed by Drs. Michael Mena, Colleen Strickland, Jerry Brooks and colleagues, with an educational dasha from [employer]. GREGORY-7 Assessment Billing GREGORY-7 Assessment Tool: GREGORY-7 Assessment 53484 Physical exam (Primary Care) Vital Signs: Last Vital Signs Temp 97.2 F 01/18/25 11:00 Pulse 68 01/18/25 11:00 Resp 12 01/18/25 11:00 BP 122/70 01/18/25 11:00 Pulse Ox 98 01/18/25 11:00 Oxygen Delivery Method Room Air 01/18/25 11:00 BMI result Body Mass Index 28.2 Tobacco/Smoking Status: Tobacco use Status Tobacco use date assessed 01/18/25 01/18/25 10:56 Patient Tobacco Use Status Former Tobacco user 01/18/25 10:56 Tobacco use type Cigarette 01/18/25 10:56 e-Cigarette/Vaping Use Former Use 01/18/25 10:56 PHQ-9: PHQ-9 Score PHQ-9: Total score 8 01/18/25 11:35 Depression Screening Interpretation: Positive Depression Screening Follow-up: Existing condition, In treatment and Community Mental Health Worker F/U Thrive Assessment: Date of Thrive Assessment Date Thrive assessed 01/18/25 01/18/25 10:56 Currently or been in a relationship where the following occur: I choose not to answer Immunizations Boostrix Tdap 2.5 Lf unit-8 mcg-5 Lf/0.5 mL intramuscular syringe Performing Provider: KIM Cordero [place] [facility] [place] Administered by: Mahogany Portillo MA on 01/18/25 11:52 Dose Route Admin Location Dispensed Lot Number Expiration Date NDC Search Developer 0.5 mL IM Right Deltoid 0.5 mL [id number] 04/12/27 36681-318-55 [employer] VIS Given Date VIS Provided VIS Publication Date 01/18/25 Single Vaccine 21 Eligibility Eligibility Date Funding Source Not VFC Eligible 01/18/25 Private Results Reviewed Results Reviewed: RUN: 01/18/25 1151 PAGE 1 [facility] [address] [place] [id number] Trash Collector: Francesco Nielsen M.D. Specimen Inquiry Name: Sohan Gooden Age/Sex: 34/M : 1990 Unit#: [id number] Attend Dr: Santana Verma MD Re12/21/24 Status: DEP ER Location: .ED Disch: SPEC : [id number] JI: 12/21/24 STATUS: COMP REQ : [id number] RECD: 12/21/[address] [facility] [address]: Daniel Syed COMP: 12/21/24 ENTERED: 12/21/[address] [facility] [address]: ORDERED: CBC Auto Diff Test Result Flag Reference WBC 8.7 4.8-10.8 X10*3/uL RBC 5.39 4.60-5.80 X10*6/uL HGB 16.7 14.0-18.0 g/dl HCT 46.3 42.0-52.0 % MCV 85.9 80.0-98.0 fL MCH 31.0 27.0-33.0 pg MCHC 36.1 H 31.0-36.0 g/dl RDW 12.5 11.0-16.0 % PLT 190 # 160-400 X10*3/uL MPV 9.2 L 9.4-12.4 fL Neut Pct Auto 75.9 H 45-73 % ImGran Pct Auto 0.3 0.0-0.4 % Lymp Pct Auto 11.6 L 20-40 % [place] Pct Auto 10.9 2-11 % Eos Pct Auto 0.6 0-4 % Baso Pct Auto 0.7 0-2 % NRBC Pct Auto 0.0 0.0-0.2 /100WBC ANC Neut Abs # 6.6 2.0-8.3 x10*3/uL ImGran Abs Auto 0.03 0.00-0.03 X10*3/uL Lymph Abs Auto 1.0 L 1.2-4.9 X10*3/uL [place] Abs Auto 1.0 0.1-1.2 X10*3/uL Eos Abs Auto 0.1 0.0-0.4 X10*3/uL Baso Abs Auto 0.1 0.0-0.2 X10*3/uL NRBC Abs Auto 0.000 0.0-0.012 X10*3/uL RUN: 01/18/25 1151 PAGE 1 [facility] [address] [place] [id number] Trash Collector: Francesco Nielsen M.D. Specimen Inquiry Name: Sohan Gooden Age/Sex: 34/M : 1990 Unit#: [id number] Attend Dr: Santana Verma MD Re12/21/24 Status: DEP ER Location: [facility] Disch: SPEC : [id number] JI: 12/21/24 STATUS: COMP REQ : [id number] RECD: 12/21/[address]: Daniel Syed COMP: 12/21/24 ENTERED: 12/21/[address]: ORDERED: CMP, Ethanol Test Result Flag Reference Sodium 140 135-145 mmol/L Potassium 4.3 3.3-5.1 mmol/L CL 100 96-108 mmol/L CO2 23 22-29 mmol/L Gap 21 H 12-20 BUN 13 9-16 mg/dL Creat 1.04 0.5-1.4 mg/dL Estimated CrCl 116.7 eGFR (calculated from the MDRD study equation) and eCrCl (calculated from the Cockcroft-Gault equation) are based on different parameters and may not yield comparable results. If eCrCl result is absurd, please check patient's height/weight. eGFR > 60 Chronic Kidney Disease: Estimated GFR < 60 mL/ min/1.73m2 Severe Kidney Disease: Estimated GFR < 15 mL/min/1.73m2 Glucose, Random 91 60-115 mg/dL CA 9.6 # 8.4-10.2 mg/dL Total Bili 1.0 0.0-1.0 mg/dL AST (GOT) 99 H 5-37 U/L ALT (GPT) 106 H 0-40 U/L Protein, Total 7.7 6.5-8.0 g/dL Alb 4.8 3.5-5.0 g/dL Alk Phos 48 39-117 U/L Ethanol < 10 mg/dL Serum/plasma ethanol results are to be used for medical/treatment purposes only. END OF REPORT [id number] [place], [place] [address]QE Scan Report Signed Patient: Yudi Gooden#: [id number]: 1990Acct:[id number]/Sex: 34 / MADM Date: 07/14/24Loc: HO.EDAttending Dr: Ordering Physician: Millie Lafleur Date of Service: 07/14/24 Procedure(s): CT head/brain wo IV con Accession Number(s): [id number] cc: Physician,Unknown ; Millie Lafleur~ EXAMINATION: CT HEAD WITHOUT CONTRAST CT CERVICAL SPINE WITHOUT CONTRAST CLINICAL INFORMATION: Fall down stairs. Head strike. EtOH. COMPARISON: CT head from 05/05/2024. TECHNIQUE: Contiguous axial imaging was performed from the skull base to vertex without intravenous administration of contrast. Contiguous axial imaging was performed from the upper chest through the skull base without intravenous administration of contrast. Coronal and sagittal reformats were obtained at the acquisition workstation. This CT examination was performed using dose optimization techniques as appropriate, variously including the following: *Automated exposure control. *Adjustment of mA and/or kV according to patient size (this includes techniques or standardized protocols for targeted exams where dose is matched to indication/reason for exam; i.e. extremities or head). *Use of iterative reconstruction technique. DLP: 1278 mGy-cm FINDINGS: Head: There is no evidence of acute intracranial hemorrhage or edematous territorial infarction. [place]-white matter differentiation is preserved. There is no abnormal attenuation within the brain parenchyma. The ventricles are normal in morphology and size. No evidence for obstructive hydrocephalus. No abnormal mass effect or midline shift. No extra-axial fluid collections. No acute soft tissue or osseous abnormalities. Mild mucosal thickening of the paranasal sinuses. Depression of the left lamina papyracea. The mastoid air cells and middle ear cavities are clear. Cervical Spine: The atlantooccipital and atlantoaxial articulations remain well aligned. Mild degenerative arthropathy of the atlantodental articulation. Mild reversal the normal cervical lordosis centered on C5-C6. Otherwise, there is anatomic alignment of the vertebral bodies and posterior elements. No evidence of acute fracture or subluxation. The vertebral body heights are maintained. Moderate degenerative disc disease at C5-C6. There is no prevertebral soft tissue swelling. The thyroid gland and remaining cervical soft tissues are within normal limits. The lung apices demonstrate no abnormalities. CT/CT head/brain wo IV con IMPRESSION: 1. No evidence of acute intracranial he morrhage or edematous territorial infarction. 2. No evidence of acute fracture or tra umatic subluxation of the cervical spine. Mild to moderate degenerative spondyloarthropathy of the cervical spine. Electronically signed by: Abram Odell DO 07/14/2024 06:30 PM EST Dictated By:Tani Odell DOSigned By:<Electronically signed by Tani Odell DO in OV>07/14/24 1830 DD/ 1148TD/TT: 07/14/24 1623Transcriptionist: BRIAN Coding Level of Care Code New Pt Level 3 (33293) New Pt Prev Care 18-39yr(28565 Diagnoses Encounter for general adult medical examination with abnormal findings Z00.01 MDD (major depressive disorder), recurrent episode, moderate F33.1 Alcohol dependence with alcohol-induced mood disorder F10.24 Substance use status: alcohol-induced mood disorder History of admission to inpatient psychiatry department Z86.59 Encounter for screening involving social determinants of health (SDoH) Z13.9 Need for Tdap vaccination Z23 Alcoholic hepatitis K70.10 Ascites presence: without ascites Additional Codes GREGORY-7 Assessment Billing - GREGORY-7 Assessment Tool: RGEGORY-7 Assessment 25700 ([id number]) PHQ-9 - 09096 - PHQ-9 Billing: Yes ([id number]) Assessment & Plan Assessment & Plan (1) Encounter for general adult medical examination with abnormal findings: Onset Date: ~01/2025 Code(s): Z00.01 - Encounter for general adult medical examination with abnormal findings Category: Medical (2) MDD (major depressive disorder), recurrent episode, moderate: Code(s): F33.1 - Major depressive disorder, recurrent, moderate Category: Medical (3) Alcohol dependence: Code(s): F10.20 - Alcohol dependence, uncomplicated Category: Medical Qualifiers: Substance use status: alcohol-induced mood disorder Qualified Code(s): F10.24 - Alcohol dependence with alcohol-induced mood disorder (4) History of admission to inpatient psychiatry department: Code(s): Z86.59 - Personal history of other mental and behavioral disorders Category: Medical (5) Encounter for screening involving social determinants of health (SDoH): Code(s): Z13.9 - Encounter for screening, unspecified Category: Medical (6) Need for Tdap vaccination: Code(s): Z23 - Encounter for immunization Category: Medical (7) Alcoholic hepatitis: Code(s): K70.10 - Alcoholic hepatitis without ascites Category: Medical Qualifiers: Ascites presence: without ascites Qualified Code(s): K70.10 - Alcoholic hepatitis without ascites Plan . Orders: Orders TDaP Immunization Today Z23 - Encounter for immunization Referrals Nurse Navigator Referral F10.20 - Alcohol dependence, uncomplicated, F33.1 - Major depressive disorder, recurrent, moderate, Z13.9 - Encounter for screening, unspecified Gastroenterology Referral K70.10 - Alcoholic hepatitis without ascites Addiction Medicine Referral F10.20 - Alcohol dependence, uncomplicated, F33.1 - Major depressive disorder, recurrent, moderate, Z13.9 - Encounter for screening, unspecified Medications: New Boostrix Tdap (diphth,pertus(acell),tetanus) 0.5 mL IM ONCE 0.5 mL 0RF NS Z23 - Encounter for immunization Patient Instructions: Disability Benefits The [facility] ([facility]) can help you understand how working may affect your benefits. Understanding your disability benefits can be complicated, but you can work and still receive benefits. The [facility] is part of the solution to this process and can help you reach your goal of financial independence. Your local Vocational Rehabilitation Office and [employer] is often the best place to get information. [facility] Disability Determination Services (DDS) is a division of the [place] Rehabilitation Commission which is 100% funded by the Social Security Administration (SSA). [facility] Disability Examiners and medical consultants determine eligibility of [place] applicants for two disability programs: Social Security Disability Insurance (SSDI) - ages 18- 65 and Supplemental Security Income (SSI) - ages - 65. [facility] Disability Determination Services (DDS) is a division of the [place] [employer] Commission ([facility]), which is 100% funded by the Social Security Administration (SSA). Who we are and what we do [facility] disability examiners and medical consultants determine eligibility of [place] applicants for 2 disability programs: Social Security Disability Insurance (SSDI), ages 18 - 65 Supplemental Security Income (SSI), ages - 65 If you think you may be eligible for payments, call to file a claim or contact your local Social Security Office . You must contact the Social Security Administration to apply for benefits. If you are looking for an online application for either SSDI or SSI visit ssa.gov. For an update on case status call the Vocational Educational Guidance Counselor (VDE) as identified in your introductory claimant letter. Looking for an overview of annual benefits for their case [email or web address] or The claims processed by the [facility] include: Initial applications Reconsideration applications ? First appeal of a denied initial application Continuing Disability Reviews ? Periodic reviews to determine if you should continue receiving benefits Disability Hearings ? [id number] informal hearing as a part of the appeal of a Continuing Disability Review cessation determination Special outreach efforts are made to homeless shelters and individuals diagnosed with HIV The [facility] has offices in [place] and [place]. Consultants at [facility] We employ more than 70 medical and psychological consultants in-house and more than 300 medical and psychological consultants throughout the [facility] to assist us in determining claimants' eligibility for disability benefits under Social Security. How to Contact [facility] Online File a claim on-line [email or web address] Phone: [place] Call [facility] [place] [phone] Call [facility] [phone] [place] toll free [place] Call [facility] [phone] Call [facility] [phone] [place] toll free Call [facility] [phone] To file an initial claim with [facility] TTY Call [facility] [phone] To file an initial claim with [facility] Fax [place] or [phone] [place] Address [address] [address], [address], [place] [address] Walk-In Care (Urgent Care): We Make it Easy Walk-in for urgent medical issues such as: ? Seasonal Allergies ? Insect Bites ? Cough ? Diarrhea ? Acute Asthma Attacks ? Back, Knee or Joint Pain ? Ear Infection ? Fever without a Rash ? Headaches ? Nausea ? Gooding Eye, Rash or Skin Irritation ? Sore Throat ? Sports Physicals ? Vomiting Most insurances are accepted. Patients do not need to be part of the [facility] to seek care at the walk-in clinic. Locations [address] [facility] [place] [address] ? [phone] [facility] [place] Care in [place] provides services to ages 18 and over. Open Friday-Friday: 8 a.m. to 5 p.m. and Friday: 9 a.m. to 3 p.m.* *Hours may vary due to staffing availability. To confirm Walk-In Care hours in [place], please call [phone]. [address] [place] [address] ? [phone] [facility] [facility] in [place] provides services to ages 12 and over. Open Friday-Friday: 8 a.m. to 5 p.m. Hours may vary due to staffing availability. To confirm Walk-In Care hours in [place], please call [phone]. LABORATORY SERVICES: [facility] [place] Primary Location [address] [place] [address] Friday through Friday 6:00 AM ? 5:00 PM Friday 7:00 AM ? 11:00 AM* [phone] The [facility] is centrally located near the front entrance of the Medical Center for easy outpatient access. Convenient parking is provided for outpatients. *Hours may vary due to staffing availability. To confirm Laboratory hours for any location, please call [phone]. Offsite Location For your convenience, we offer offsite laboratory draw stations at the following locations: [address] [place] [address] ? [facility] [address], [address] Friday through Friday 7:30 AM ? 1:00 PM* [phone] *Hours may vary due to staffing availability. To confirm Laboratory hours for any location, please call [phone]. [place] ? [address] Friday through Friday 6:00 AM ? 3:30 PM* Friday 6:30 AM ? 3 PM* [phone] *Hours may vary due to staffing availability. To confirm Laboratory hours for any location, please call [phone]. [address] [facility] Friday through Friday 7:30 AM ? 4:00 PM* [phone] *Hours may vary due to staffing availability. To confirm Laboratory hours for any location, please call [phone] [place] [address] Friday through 9:00 AM ? 4:00 PM* *Hours may vary due to staffing availability. To confirm Laboratory hours for any location, please call [phone]. Appointments are not necessary. Walk-ins are welcome. Like all the departments throughout the [facility], our Lab undergoes frequent reviews to ensure the quality and accuracy of test results, and our staff takes special pride in its status as a nationally accredited facility. Patient Portal: ONE PATIENT. ONE RECORD. BETTER CARE. [facility] has a fully integrated, cutting- edge mobile electronic health information system that has revolutionized the way we care for our patients and manage our organization. This system improves communication and coordination enabling us to provide safe, higher-quality care, and an overall positive experience for staff and patients. Our first priority, as always, is to deliver the highest quality care possible. The system is running in the background supporting that priority. This portal is for all [facility] and [facility] services and practices. If you are experiencing any technical difficulties with enrolling or logging into the Patient Portal please complete the [facility] Patient Portal Technical Support Form. [facility] now offers a new secure on-line interactive tool for patients to review their health information ? ?Patient Portal. This interactive web portal will enable patients and their families to take an active role in their care by providing easy, secure access to their health information via the internet. The Patient Portal provides patients with instant access to their health information, including laboratory results, medications, allergies, demographic information, visit history, and more. In addition to managing their own care, parents and health care proxies with authorized consent will appreciate the ability to access the records of those individuals for whom they provide care. Please note: if you wish to gain access (Proxy) to another patient?s portal, you will be required to come to the Medical Records Department in person at [facility]. Both the patient giving proxy access and the proxy will need to provide photo identification and complete the appropriate authorization. The Patient Portal also allows track their appointments online. The [facility] Patient Portal also saves patients time by allowing them to submit updates to their demographic and contact information prior to their visits. Portal email notifications will also alert patients to any new activity on their portal, such as test results and new appointments. In order to initially enroll in the [facility] Patient Portal, you will need to enter some required information including the following: * your [facility] Medical Record number * your personal home email address * name * date of Please note: In order to enroll in the [facility] Patient Portal, we need to have your email address on file in your electronic medical record. ?The email address needs to be specific for one person (yourself) in order for your Portal enrollment to be successful. ?You can update your email address in person with our Registration staff when you are registering for a hospital visit. ?Otherwise, you will need to come to the Health Information Management (Medical Records) Department at [facility]. ?We are open from Friday ? Friday from 7:30 a.m. ? 4:30 p.m. ?You will be required to present a photo id. Once you have successfully enrolled in the Patient Portal, you will receive a one-time user id and password for the Portal, sent to your email address. ?This will allow you to log into the Patient Portal within 99 hrs and reset your own logon id and password, and define personal security questions. ?Once your permanent login and password have been set, you can log into the [facility] Patient Portal at any time via the blue button above or from the Portal Logon button on any page of the [facility] website. [facility] encourage all of our patients to enroll in Patient Portal as it presents a valuable opportunity for patients and their families to actively participate in their care and stay healthy Welcome to [facility]. ?We look forward to working with you. Health screenings for men You should visit your health care provider regularly, even if you feel healthy. The purpose of these visits is to: Screen for medical issues Assess your risk for future medical problems Encourage a healthy lifestyle Update vaccinations and other preventive care services Help you get to know your provider in case of an illness Information Even if you feel fine, you should still see your provider for regular checkups. These visits can help you avoid problems in the future. For example, the only way to find out if you have high blood pressure is to have it checked regularly. High blood sugar and high cholesterol level also may not have any symptoms in the early stages. Simple blood tests can check for these conditions. There are specific times when you should see your provider or receive specific health screenings. The [place] Preventive Services Task Force publishes a list of recommended screenings. Below are screening guidelines for men ages 40 to 64. BLOOD PRESSURE SCREENING Have your blood pressure checked at least once every year. Watch for blood pressure screenings in your area. Ask your provider if you can stop in to have your blood pressure checked. Ask your provider if you need your blood pressure checked more often if: You have diabetes, heart disease, kidney problems, or are overweight or have certain other health conditions You have a first-degree relative with high blood pressure You are Black Your blood pressure top number is from 120 to 129 mm Hg, or the bottom number is from 70 to 79 mm Hg If the top number is 130 mm Hg or greater or the bottom number is 80 mm Hg or greater, this is considered stage 1 hypertension. Schedule an appointment with your provider to learn how you can lower your blood pressure. Effects of age on blood pressure CHOLESTEROL SCREENING Cholesterol screening should begin at age 35 for men with no known risk factors for coronary heart disease. Repeat cholesterol screening should take place: Every 5 years for men with normal cholesterol levels More often if changes occur in lifestyle (including weight gain and diet) More often if you have diabetes, heart disease, kidney problems, or certain other conditions COLORECTAL CANCER SCREENING If you are under age 45, talk to your provider about getting screened. You may need to be screened if you have a strong family history of colon cancer or polyps. Screening may also be considered if you have risk factors such as a history of inflammatory bowel disease or polyps. If you are age 45 to 75, you should be screened for colorectal cancer. There are several screening tests available: A stool-based fecal occult blood (gFOBT) or fecal immunochemical test (FIT) every year A stool sDNA test every 1 to 3 years Flexible sigmoidoscopy every 5 years or every 10 years with stool testing FIT done every year CT colonography (virtual colonoscopy) every 5 years Colonoscopy every 10 years You may need a colonoscopy more often if you have risk factors for colorectal cancer, such as: Ulcerative colitis A personal or family history of colorectal cancer A history of growths in your colon called adenomatous polyps DENTAL EXAM Go to the dentist once or twice every year for an exam and cleaning. Your dentist will evaluate if you have a need for more frequent visits. DIABETES SCREENING All adults who do not have risk factors for diabetes should be screened starting at age 35 and repeated every 3 years. If you have other risk factors for diabetes, such as a first degree relative with diabetes, overweight or obesity, high blood pressure, prediabetes, or a history of heart disease, you may be tested more often. If you are overweight and have other risk factors, such as high blood pressure and are planning to become , screening is recommended. EYE EXAM Have an eye exam every 2 to 4 years ages 40 to 54 and every 1 to 3 years ages 55 to 64. Your provider may recommend more frequent eye exams if you have vision problems or glaucoma risk. Have an eye exam that includes an examination of your retina (back of your eye) at least every year if you have diabetes. IMMUNIZATIONS Commonly needed vaccines include: Flu shot: get one every year COVID-19 vaccine: ask your provider what is best for you Tetanus-diphtheria and acellular pertussis (Tdap) vaccine: have as one of your tetanus-diphtheria vaccines if you did not receive it as an adolescent Tetanus-diphtheria: have a booster (or Tdap) every 10 years Varicella vaccine: receive 2 doses if you never had chickenpox or the varicella vaccine and were born in 1979 or after Hepatitis B vaccine: receive 2, 3, or 4 doses, depending on your exact circumstances, if you did not receive these as a child or adolescent, until age 59 Shingles (herpes zoster) vaccine: at or after age 50 Ask your provider if you should receive other immunizations, especially if you have certain medical conditions, such as diabetes or are at increased risk for some diseases such as pneumonia. INFECTIOUS DISEASE SCREENING Screening for hepatitis C: all adults ages 18 to 79 should get a one-time test for hepatitis C. Screening for human immunodeficiency virus (HIV): all people ages 15 to 65 should get a one-time test for HIV. Depending on your lifestyle and medical history, you may need to be screened for infections such as syphilis, chlamydia, and other infections. LUNG CANCER SCREENING You should have an annual screening for lung cancer with low-dose computed tomography (LDCT) if: You are age 50 to 80 years AND You have a 20 pack-year smoking history AND You currently smoke or have quit within the past 15 years OSTEOPOROSIS SCREENING If you are age 50 to 64 and have risk factors for osteoporosis, you should discuss screening with your provider. Risk factors can include long-term steroid use, low body weight, smoking, heavy alcohol use, having a fracture after age 50, or a family history of hip fracture or osteoporosis. Osteoporosis PHYSICAL EXAM All adults should visit their provider from time to time, even if they are healthy. The purpose of these visits is to: Screen for diseases Assess risk of future medical problems Encourage a healthy lifestyle Update vaccinations and other preventive care services Maintain a relationship with a provider in case of an illness Your height, weight, and body mass index (BMI) should be checked at every exam. During your exam, your provider may ask you about: Depression and anxiety Diet and exercise Alcohol and tobacco use Safety, such as use of seat belts and smoke detectors Your medicines and risk for interactions PROSTATE CANCER SCREENING If you're 55 through 69 years old, before having the test, talk to your provider about the pros and cons of having a PSA test. Ask about: Whether screening decreases your chance of dying from prostate cancer. Whether there is any harm from prostate cancer screening, such as side effects from testing or overtreatment of cancer when discovered. Whether you have a higher risk of prostate cancer than others. If you are age 55 or younger, screening is not generally recommended. You should talk with your provider about if you have a higher risk for prostate cancer. Risk factors include: Having a family history of prostate cancer (especially a brother or father) Being If you choose to be tested, the PSA blood test is repeated over time (yearly or less often), though the best frequency is not known. Prostate examinations are no longer routinely done on men with no symptoms. Prostate cancer SKIN EXAM Your provider may check your skin for signs of skin cancer, especially if you're at high risk. People at high risk include those who have had skin cancer before, have close relatives with skin cancer, or have a weakened immune system. TESTICULAR EXAM The US Preventive Services Task Force (USPSTF) now recommends against performing testicular self-exams. Doing testicular self-exams has been shown to have little to no benefit. National Suicide and Crisis Lifeline: Available 24 hours a day, 7 days a week, 365 days a year Dial 988 with any telephone to speak to someone [facility] (Mental / Behavioral health therapist: [address] [place] [address] [facility]: [address] [place] [address] Open from 10am - 12pm (walk ins welcome) [facility] Crisis Services: [address] [place] [address] Walk in hours from 10am - 12pm Behavioral health Network: [address] [place] [address] [place] [phone] Friday through Friday 8am - 8pm Friday and Friday 9am - 5pm Crisis Hotlines Suicide prevention, domestic violence, and other crisis hotlines for youth, young adults, and their friends and families. [employer] Safeline: The National Runaway Safeline helps youth who have run away, are thinking about running away, or who already ran away but are ready to come home. Parents and guardians can also contact the hotline if they are worried about their child running away or if their child has already left home. The hotline is available 24 hours a day, seven days a week. Youth, parents, and guardians can also use the online chat feature on the Runaway Safeline's website to ask for help and get support, [place] [address]. National Runaway Safeline National Suicide Prevention Lifeline: The National Suicide Prevention Lifeline is a network of local crisis centers that are available 10/03 to provide support for youth and adults who are in any kind of emotional crisis. In addition to the main hotline number listed above, there are several other numbers to call depending on your needs: Czech Language: Deaf and Hard of [phone] Veterans: Disaster Distress: Anyone can also use their online chat feature on their website. National Suicide Prevention Lifeline [facility] Helpline: The [facility] Helpline is available to anyone in [place] who is need of emotional support. Anyone can call or text the helpline to receive help from specially trained volunteers. [place] high school and college students can also get online support through the IMHear_ program. For high school students, volunteers ages 15-18 are available Friday- from 6-9PM. For college students, IMHear_ is available Friday-Friday from 5-9PM. The Maykel Project - The Maykel Project is a 10/03 crisis intervention and suicide prevention hotline for LGBTQ youth. Youth can also text Maykel to for support, or use the online chat feature on the Maykel Project's website. [employer] is available Friday-Friday between 3-10PM. [employer] is available seven days a week between 3-10PM. SafeLink: SafeLink is for anyone who is being affected by domestic violence or dating violence. Volunteers at SafeLink speak Kiswahili and Czech, and [employer] also has a service that can provide translation in more than 130 languages. TTY:
[2025-01-18 11:00] VITALS: BP 122/70; PULSE 68; RESP 12; TEMP 36.2; O2SAT 98; BMI 28.2
== END 2025-01-18 11:55 | disposition home or self-care (01) ==
LOC: HO.HMCFM 10:49
PROVIDERS: PCP Nurse Practitioner Family; Visit Provider Nurse Practitioner Family
DX: Z00.01 Encounter for general adult medical examination with abnormal findings (principal); F33.1 Major depressive disorder, recurrent, moderate; F10.24 Alcohol dependence with alcohol-induced mood disorder; K70.10 Alcoholic hepatitis without ascites; Z86.59 Personal history of other mental and behavioral disorders; Z23 Encounter for immunization

== ENCOUNTER → 2025-01-18 10:48 | Outpatient (BNVA) | payer OTHER, SELFPAY | PROVIDERS: PCP Nurse Practitioner Family; Visit Provider Nurse Practitioner Family | DX: Z00.01 Encounter for general adult medical examination with abnormal findings (principal); F33.1 Major depressive disorder, recurrent, moderate; F10.21 Alcohol dependence, in remission; Z86.59 Personal history of other mental and behavioral disorders; K70.10 Alcoholic hepatitis without ascites; Z23 Encounter for immunization | CPT/HCPCS: 90471; 90715; 96127; 99202; 99385 ==

== ENCOUNTER 2025-02-15 12:51 | Outpatient (AMB) | payer OTHER, SELFPAY ==
[2025-02-15 13:39] VITALS: BP 128/88; PULSE 69; O2SAT 99
--- NOTE | 2025-02-15 13:39 | MHC.AM.SUB ---
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 Reports no alcohol use for past 10 days, denies any use of opioids or other substances. Moved from [place], a year ago, lives with mother and is coping with berevement process r/t father. Review of Systems Const All systems reviewed & are unremarkable except as noted in HPI and below ENT Reports as per HPI Card Reports as per HPI Resp Reports as per HPI GI Reports as per HPI Musc Reports no additional complaints Skin/Breast Reports as per HPI Neuro Reports no additional complaints Psych Details: The patient presents with an euthymic mood and congruent affect, denies SI/HI ideation at present time of visit. Reports as per HPI Endo Reports as per HPI Aller/Immun Reports as per HPI Physical Exam Vital Signs: Last Vital Signs Pulse 69 02/15/25 13:39 BP 128/88 02/15/25 13:39 Pulse Ox 99 02/15/25 13:39 Oxygen Delivery Method Room Air 02/15/25 13:39 Const Orientation/consciousness: patient oriented x3 HEENT Head: Yes normal to inspection Ears: hearing grossly normal bilaterally General nose exam: Normal external nose present Face and sinus: Yes normal facial exam Mouth: Normal oral and palatal mucosa present Teeth and gingiva: dentition normal Throat: Yes posterior oropharynx normal Eyes General: appearance normal, both eyes and all related structures Eyelids: Yes eyelids normal Conjunctivae: conjunctivae normal Sclerae: sclerae normal Pupils: Equal, round and reactive pupils present Neck Neck: Yes normal visual inspection Resp Effort & Inspection: normal respiratory effort Auscultation: clear to auscultation bilaterally Cardio Rate: regular rate Rhythm: regular rhythm GI Inspection: Yes normal to inspection Auscultation: normal bowel sounds Rectal Exam - Male: Yes deferred Skin General skin exam: no rashes or lesions noted Hair: normal Nails: normal Neuro General: patient oriented x3 Cranial nerves: Yes Equal, round and reactive pupils present Cognition (Neuro): normal cognition Gait exam (Neuro): Normal gait present Psych Appearance: well kempt Mental Status: mental status grossly normal Speech and movement: Normal speech and movement present Affect: Sad affect present and Other affect and mood findings present (Euthymic mood and congruent affect) Attitude: cooperative Thought process: Normal thought process present Thought content: Normal thought content present Insight: Fair insight present (Psych) Judgement: Fair judgement present (Psych) Results AMB 14 Panel Urine Drug Screen Urine Marijuana (THC) Negative Last Edit by Zaynab Haynes RN on 02/15/25 14:54 Urine Cocaine Negative Last Edit by Zaynab Haynes RN on 02/15/25 14:54 Urine Morphine Negative Last Edit by Zaynab Haynes RN on 02/15/25 14:54 Urine Methamphetamine Negative Last Edit by Zaynab Haynes RN on 02/15/25 14:54 Urine Amphetamine Negative Last Edit by Zaynab Haynes RN on 02/15/25 14:54 Urine Benzodiazepine Negative Last Edit by Zaynab Haynes RN on 02/15/25 14:54 Urine Barbiturates Negative Last Edit by Zaynab Haynes RN on 02/15/25 14:54 Urine Methadone Negative Last Edit by Zaynab Haynes RN on 02/15/25 14:54 Urine Buprenorphine Negative Last Edit by Zaynab Haynes RN on 02/15/25 14:54 Urine Tricyclic Antidepressant Negative Last Edit by Zaynab Haynes RN on 02/15/25 14:54 Urine MDMA Negative Last Edit by Zanyab Haynes RN on 02/15/25 14:54 Urine Oxycodone Negative Last Edit by Zaynab Haynes RN on 02/15/25 14:54 Urine Phencyclidine Negative Last Edit by Zaynab Haynes RN on 02/15/25 14:54 Urine Propoxyphene Negative Last Edit by Zaynab aHynes RN on 02/15/25 14:54 Results Reviewed Results Reviewed: Laboratory Last Values POC Urine Buprenorphine Negative 02/15/25 14:50 POC Urine Morphine Negative 02/15/25 14:50 POC Urine Oxycodone Negative 02/15/25 14:50 POC Urine Methadone Negative 02/15/25 14:50 POC Urine Propoxyphene Negative 02/15/25 14:50 POC Urine Barbiturates Negative 02/15/25 14:50 POC U Tricyclic Antidpr Negative 02/15/25 14:50 POC Urine PCP Negative 02/15/25 14:50 POC Ur Amphetamines Negative 02/15/25 14:50 POC Ur Methamphetamine Negative 02/15/25 14:50 POC Urine MDMA Negative 02/15/25 14:50 POC Ur Benzodiazepine Negative 02/15/25 14:50 POC Urine Cocaine Negative 02/15/25 14:50 POC Ur Marijuana (THC) Negative 02/15/25 14:50 PFSH Medical History (Updated 01/18/25 @ 11:46 by Linda Morris, [facility]) Alcohol withdrawal syndrome Alcoholism Schizophrenia Memory loss Bipolar 1 disorder Anxiety and depression Grief Alcoholic hepatitis Alcohol-induced psychosis, with delusions MDD (major depressive disorder), recurrent episode, moderate Surgical History (Updated 01/18/25 @ 11:04 by Mahogany Portillo MA) No pertinent past surgical history Family History (Updated 01/18/25 @ 11:06 by Mahogany Portillo MA) Father Substance abuse HTN (hypertension) Mother HTN (hypertension) Social History Household Members: Family Household Members Other:: Mother & Brother Both parents involved: No Caregiver staying overnight: No Housing: House Are you a primary healthcare sales representative to a significant other at home: No Do you presently have visiting nurse or other home services: No 75 years or older and lives alone: No Alcohol intake: current Alcohol intake frequency: a few times a month Patient Tobacco Use Status: Former Tobacco user Tobacco use type: Cigarette Cigarette Packs Per Day: 0.5 Cigarettes Per Day: 10.0 Years Smoked: 15 e-Cigarette/Vaping Use: Former Use Second Hand Smoke Exposure: Yes Substance Use Type: Heroin Advance Directives Date on File: 05/07/24 service: No Current occupational status: employed and unemployed Sexual orientation: Don't Know Cognitive needs: No Hearing needs: No Vision needs: No Social History: [facility] with his mother and brother and [place] Patient was living with his father in [place] until a few months ago when his father from alcohol-related complications; he then came to live with his mother and brother -history of incarceration for resisting arrest, disorderly conduct, and multiple DUIs. Substance History: Reports a long history of alcohol use. Hx of OUI with incarceration, parole in [place] with court ordered tx. Hx of many treatment interventions As of 02/15/25-Reports 10 days of no alcohol consumption. Trauma History: Loss of his father Assessment & Plan Assessment & Plan (1) Alcohol dependence: Code(s): F10.20 - Alcohol dependence, uncomplicated Category: Medical Qualifiers: Substance use status: alcohol-induced mood disorder Qualified Code(s): F10.24 - Alcohol dependence with alcohol-induced mood disorder Plan: The plan of care is to start with naltrexone 50 mg, 1/2 tablet by mouth for first 3 days and then proceed to 1 tablet by mouth for remaining 4 days. Education provided re: naltrexone, including side effects, purpose, and general medication information. The patient instructed to call with any questions and or to reports side affects, as soon as possible. The patient to follow up in one week. Reports trying to re-connect to therapist at [facility] ([facility]). T/w called [facility] and connected the patient to speak to front office staff to facilitate communication with therapist. The patient was able to leave a voicemail for therapist. Plan . Orders: Orders AMB 14 Panel Urine Drug Screen Today F10.24 - Alcohol dependence with alcohol-induced mood disorder Medications: New naltrexone Take 1/2 tablet for first 3 days and then 1 tablet daily. 50 mg PO DAILY 7 tabs 0RF Treatment of ETOH Patient Instructions: The patient instructed to call with any questions and or to reports side affects, as soon as possible. The patient to follow up in one week. MAT Intake Nursing Intake Reason for visit: AUD Are you currently using?: No When was your last use?: a week and a half ago What is your source of income?: unemployed Current PCP: Linda Morris Date of last visit: 01/18/25 Referral Source: Referral From Primary Care Details: Sohan has a history of multiple inpatient [facility] Detox admissions. He has multiple DUI's. He is having difficulty maintaining sobriety. Substance Abuse History Substance Abuse History (includes route, frequency and quantity): Cocaine (about 15 years ago), Alcohol and Marijuana (infrequently- UDS negative) Age of first use: unknown Social History Domestic Violence concerns: none Children: none Do you have a support system?: Mom and brothers Current mode of transportation?: Public-lost license Where are you currently residing?: [place] with Mom LMP: NA IV Drug Use Have you ever shared needles?: No Have you ever belonged to a needle exchange program?: No Do you buy needles at a pharmacy?: No Have you ever overdosed?: No Have you ever been hospitalized for an overdose?: No Was Naloxone administered?: Not applicable Recovery History Have you had any periods of recovery?: Yes What is your longest time in recovery?: 12 months and and 18 months When was the last time you were in recovery?: 2014/2015 Have you ever had inpatient treatment for your substance abuse disorder?: Yes Have you been in an inpatient detoxification program?: Yes Have you been in an inpatient Rehab/Nursing Home house?: Yes Have you been in an outpatient Methadone Maintenance program?: No Have you been in an AA/NA support program?: Yes Have you had a Recovery Support Underwriting Internship?: No Have you had Peer Support?: No Behavioral Health History Do you have a current provider? If so, who?: Had one at [facility] for a couple visits- trying to re-establish care with them, lian Toney NP diagnosis: documented HX of anxiety, depression, schizophrenia, Bipolar, - stated that he has AH that he just start acknowledging with other people History of other addictive behavior: no History of inpatient psychiatric hospitalization? If so, how many? Most Recent? Where?: yes, [facility] 08/10 History of self harming thoughts?: No History of homicidal or suicidal intentions?: Yes (endorses thoughts of self harm though no intention - able to contract for safety) Medical Conditions Endocarditis?: No Skin Infection: No Seizure related to withdrawal or overdose: No Head or brain injury: No Hepatitis A (if yes, have you been treated?): No Hepatitis B (if yes, have you been treated?): No Hepatitis C (if yes, have you been treated?): No HIV (if yes, have you been treated?): No TB (if yes, have you been treated?): No Other: No Do you have any chronic pain conditions?: no Legal History History of incarceration: Yes Currently on parole or probation: No Court mandated programs: Yes (for drivers license) Pending court cases: No DCF involvement: No
== END 2025-02-15 15:12 | disposition home or self-care (01) ==
LOC: HO.HCC 12:52
PROVIDERS: PCP Nurse Practitioner Family; Visit Provider Clinical Nurse Specialist Psychiatric/Mental Health
DX: F10.24 Alcohol dependence with alcohol-induced mood disorder (principal)
CPT/HCPCS: 99204

== ENCOUNTER → 2025-02-15 12:51 | Outpatient (BNVA) | payer OTHER, SELFPAY | PROVIDERS: PCP Nurse Practitioner Family; Visit Provider Clinical Nurse Specialist Psychiatric/Mental Health | DX: F10.24 Alcohol dependence with alcohol-induced mood disorder (principal) | CPT/HCPCS: 80307; 99202 ==

== ENCOUNTER 2025-02-20 18:36 | Emergency (ER) | payer OTHER, SELFPAY ==
[2025-02-20 18:45] VITALS: BP 138/78; PULSE 123; O2SAT 98
[2025-02-20 18:49] VITALS: BP 130/87; PULSE 114; RESP 16; TEMP 36.6; O2SAT 98; BMI 27.3
[2025-02-20 20:02] LABS: MANUAL DIFF FLAG NO
[2025-02-20 20:03] LABS: Hematocrit 38.7 % (42.0-52.0); Hemoglobin 14.1 g/dl (14.0-18.0); Imm Gran Abs Auto 0.02 X10*3/uL (0.00-0.03); Imm Gran Pct Auto 0.3 % (0.0-0.4); Lymphocytes Absolute Auto 0.9 X10*3/uL (1.2-4.9); Mean Corpuscular HGB Conc 36.4 g/dl (31.0-36.0); Mean Corpuscular Hemoglobin 31.9 pg (27.0-33.0); Mean Corpuscular Volume 87.6 fL (80.0-98.0); NRBC Abs Auto 0.000 X10*3/uL (0.0-0.012); NRBC Pct Auto 0.0 /100WBC (0.0-0.2); Platelet Count 311 X10*3/uL (160-400); Red Blood Count 4.42 X10*6/uL (4.60-5.80); White Blood Count 5.9 X10*3/uL (4.8-10.8)
[2025-02-20 20:16] LABS: Alanine Aminotransferase 14 U/L (0-40); Albumin Level 4.2 g/dL (3.5-5.0); Alkaline Phosphatase 42 U/L (39-117); Anion Gap 18 (12-20); Aspartate Amino Transferase 39 U/L (5-37); Blood Urea Nitrogen 11 mg/dL (9-16); Calcium 8.3 mg/dL (8.4-10.2); Carbon Dioxide 23 mmol/L (22-29); Chloride 109 mmol/L (96-108); Creatinine Clr Calc Pharmacy 122.2; Estimated Glomerular Filt Rate > 60; Magnesium 2.2 mg/dL (1.6-2.6); Potassium 3.8 mmol/L (3.3-5.1); Sodium 146 mmol/L (135-145); Total Protein 6.4 g/dL (6.5-8.0)
[2025-02-20 20:22] LABS: Acetaminophen LAB < 3 mcg/mL (<30); Salicylate < 5.0 mg/dL (15-30)
[2025-02-20 22:12] VITALS: BP 115/76; PULSE 83; RESP 14; TEMP 36.6; O2SAT 94
--- NOTE | 2025-02-21 00:50 | ED.GENADULT ---
HPI - General Adult General Chief complaint: Overdose Stated complaint: OD, narcan given Time Seen by Provider: 02/20/25 19:38 Source: patient Limitations: no limitations History of Present Illness ED Provider: Kacey Cornell PA-C HPI narrative: 35-year-old male with a history of polysubstance abuse, alcohol use disorder, alcoholic hepatitis, depression who presents after overdose. Patient was found on the sidewalk unresponsive. He allegedly received 12 mg of intranasal Narcan by EMS, then received 1 mg of IV push Narcan. When patient regained responsiveness, he emphatically denied the use of any opiates, he states ?I was only using cocaine?. Patient denies SI or HI. He does admit to concurrent alcohol use, he states ?I have been drinking a lot?. Related Data Previous Rx's ?Medication ?Instructions ?Recorded naltrexone 50 mg tablet 50 mg PO DAILY Treatment of ETOH 02/15/25 #7 tabs Allergies Allergy/AdvReac Type Severity Reaction Status Date / Time No Known Allergies Allergy Verified 02/20/25 18:52 Review of Systems Review of Systems: Yes all other systems are reviewed and are negative Constitutional: Constitutional: Denies fatigue and Denies fever(s) Cardiovascular: Cardiovascular: Denies chest pain and Denies dyspnea Respiratory: Respiratory: Denies dyspnea Gastrointestinal: Gastrointestinal: Denies abdominal pain, Denies diarrhea, Denies nausea and Denies vomiting Endocrine: Endocrine: Denies fatigue PMFSH Past Medical History Attestation statement: The following information was validated with the patient. Medical History (Updated 02/21/25 @ 01:00 by DANIEL Sauceda) Alcohol withdrawal syndrome Alcoholism Schizophrenia Memory loss Bipolar 1 disorder Anxiety and depression Grief Alcoholic hepatitis Alcohol-induced psychosis, with delusions MDD (major depressive disorder), recurrent episode, moderate Surgical History (Updated 01/18/25 @ 11:04 by Mahogany Portillo MA) No pertinent past surgical history Family History Family History (Updated 01/18/25 @ 11:06 by Mahogany Portillo MA) Father Substance abuse HTN (hypertension) Mother HTN (hypertension) Social History Social History Household Members: Family Household Members Other:: Mother & Brother Housing: House Are you a primary direct care staffer to a significant other at home: No Do you presently have visiting nurse or other home services: No Alcohol intake: current Alcohol intake frequency: a few times a month Patient Tobacco Use Status: Former Tobacco user Tobacco use type: Cigarette Cigarette Packs Per Day: 0.5 Cigarettes Per Day: 10.0 Years Smoked: 15 Smoked in Last 30 Days: Yes e-Cigarette/Vaping Use: Former Use Second Hand Smoke Exposure: Yes Use of substances other than those prescribed or required for medical reasons: Yes Substance Use Type: Crack/Cocaine Last Used Substance: Just Prior to Admission Advance Directives: Yes Advance Directives on File: Yes Advance Directives Date on File: 05/07/24 service: No Current occupational status: employed and unemployed Sexual orientation: Don't Know Cognitive needs: No Hearing needs: No Vision needs: No Physical Exam ED Vital Signs: Vital Signs - 24 hr 02/20/25 18:49 02/20/25 22:12 Temperature 97.8 F 97.9 F Pulse Rate 114 H 83 Respiratory Rate 16 14 Blood Pressure 130/87 115/76 Pulse Oximetry 98 94 Oxygen Delivery Method Room Air Room Air BMI result Body Mass Index 27.3 Const Other: Alert Orientation/consciousness: patient oriented x3 HENMT Other: Alcohol halitosis Eyes Other: Pinpoint pupils Resp Effort & Inspection: normal respiratory effort Cardio Other: Normal peripheral perfusion Skin Other: Warm dry no rash Neuro General: patient oriented x3, gait normal, no focal motor deficits and CN's II-XI intact bilaterally Psych Other: Cooperative, appears intoxicated Course Reevaluation(s) Reevaluation #1: Zohra from the recovery team met with the patient. The patient declines detox, he has a therapist in the community, he was sent with resources if he so chooses to seek help for his ongoing polysubstance and alcohol abuse. We will also send him with Narcan Medications Administered Discontinued Medications Generic Name Dose Route Start Last Admin Trade Name Freq PRN Reason Stop Dose Admin Sodium Chloride 1,000 mls @ 999 mls/hr 02/20/25 19:45 02/20/25 21:08 Ns IV 02/20/25 20:45 Infused .Q1H1M PO Infusion Medical Decision Making Medical Decision Making MDM Narrative: 35-year-old male with a history of polysubstance abuse, alcohol use disorder, alcoholic hepatitis, depression who presents after overdose. Patient was found on the sidewalk unresponsive. He allegedly received 12 mg of intranasal Narcan by EMS, then received 1 mg of IV push Narcan. When patient regained responsiveness, he emphatically denied the use of any opiates, he states ?I was only using cocaine?. Patient denies SI or HI. He does admit to concurrent alcohol use, he states ?I have been drinking a lot?. Problem: Polysubstance abuse, alcohol use disorder History: Per patient I have considered the following differential diagnoses: SI, HI, decompensated psychiatric illness, drug/alcohol intoxication Plan: I have explained to the patient that we we will be monitoring him over the next several hours for further respiratory decompensation, he verbalizes understanding. I will also place a request with a assistant strength coach to assess him. In the event that he stays for detox, we will be screening basic labs, serum ethanol and drug screen. I have independently reviewed the following tests: Labs: No leukocytosis, not anemic, no electrolyte abnormality, drug screen never obtained, ethanol 334 Lab Data 02/20/25 19:52 02/20/25 19:52 Labs: Lab Results 02/20/25 Range/Units 19:52 WBC 5.9 (4.8-10.8) X10*3/uL RBC 4.42 L (4.60-5.80) X10*6/uL Hgb 14.1 (14.0-18.0) g/dl Hct 38.7 L (42.0-52.0) % MCV 87.6 (80.0-98.0) fL MCH 31.9 (27.0-33.0) pg MCHC 36.4 H (31.0-36.0) g/dl RDW 13.4 (11.0-16.0) % Plt Count 311 D (160-400) X10*3/uL MPV 8.6 L (9.4-12.4) fL Immature Gran % (Auto) 0.3 (0.0-0.4) % Neut % (Auto) 67.7 (45-73) % Lymph % (Auto) 15.7 L (20-40) % [place] % (Auto) 9.3 (2-11) % Eos % (Auto) 4.6 H (0-4) % Baso % (Auto) 2.4 H (0-2) % Lymph # (Auto) 0.9 L (1.2-4.9) X10*3/uL [place] # (Auto) 0.6 (0.1-1.2) X10*3/uL Eos # (Auto) 0.3 (0.0-0.4) X10*3/uL Baso # (Auto) 0.1 (0.0-0.2) X10*3/uL Abs Immat Gran (auto) 0.02 (0.00-0.03) X10*3/uL Absolute Neuts (auto) 4.0 (2.0-8.3) x10*3/uL Absolute Nucleated RBC 0.000 (0.0-0.012) X10*3/uL Nucleated RBC % (auto) 0.0 (0.0-0.2) /100WBC Sodium 146 H (135-145) mmol/L Potassium 3.8 (3.3-5.1) mmol/L Chloride 109 H (96-108) mmol/L Carbon Dioxide 23 (22-29) mmol/L Anion Gap 18 (12-20) BUN 11 (9-16) mg/dL Creatinine 0.89 (0.5-1.4) mg/dL Estim Creat Clear Calc 122.2 Estimated GFR > 60 Random Glucose 82 (60-115) mg/dL Calcium 8.3 L D (8.4-10.2) mg/dL Magnesium 2.2 (1.6-2.6) mg/dL Total Bilirubin 0.4 (0.0-1.0) mg/dL AST 39 H (5-37) U/L ALT 14 (0-40) U/L Alkaline Phosphatase 42 (39-117) U/L Total Protein 6.4 L (6.5-8.0) g/dL Albumin 4.2 (3.5-5.0) g/dL Salicylates < 5.0 L (15-30) mg/dL Acetaminophen < 3 (<30) mcg/mL Ethyl Alcohol 334 H* mg/dL Discharge Plan Discharge Clinical Impression: Opiate overdose, Alcohol use disorder, Alcohol intoxication Patient Disposition: Home, Self-Care Instructions: Abuse of Alcohol (ED), Polysubstance Use Disorder (ED) Additional Instructions: Overdose You were seen in our Emergency Department for an overdose today. You received narcan in order to reverse the effects of overdose. Narcan only lasts about 45 min to 1 hour in the system. You may have been given narcan to take home with you today, please keep it near you if you are going to use again, so others can use it if needed.? The number one risk for fatal overdose is using alone? Safe [employer] is a 24/ hotline where you can be on the phone with someone while you use, and they can call for help if they suspect an overdose: [phone] Things to look out for when you leave include severe vomiting or diarrhea, headaches, muscle cramps, fever, coughing, chest pain, or if you feel so short of breath you cannot walk to the bathroom. Please seek care and return any time for worsening symptoms.? You may have been provided with safer injection?items, please take time to take care of YOU and your health. Use new supplies whenever possible to lessen the chances of infections and other illnesses.? If you need more supplies, please go [facility],? [address] [place] [address] OR you can call or text to coordinate delivery of safer supplies. If you decide you want to stop or cut down on how much you?re using, please call the numbers on the list provided to you or you can come to our outpatient Addiction Treatment office [facility] (M-F 9am-5p) [address] [place] [address], [address] [phone] Prescriptions: No Action naltrexone 50 mg tablet 50 mg PO DAILY Qty: 7 0RF Rx Instructions: Take 1/2 tablet for first 3 days and then 1 tablet daily. Print Language: Brazilian
[2025-02-21 00:56] VITALS: BP 115/75; PULSE 85; RESP 13; TEMP 36.9; O2SAT 97
[2025-02-21] MEDS: Naloxone HCl Nasal TAKE HOME 4 MG SPRAY 8 MG NOSTRILALT (01:32)
[2025-02-21 01:42] VITALS: BP 115/75; PULSE 85; RESP 13; TEMP 36.9; O2SAT 97
== END 2025-02-21 01:49 | disposition home or self-care (01) ==
PROVIDERS: Physician Assistant Medical; Emergency Provider Emergency Medicine; PCP Nurse Practitioner Family
DX: T40.2X1A Poisoning by other opioids, accidental (unintentional), initial encounter (principal); R40.4 Transient alteration of awareness; F19.10 Other psychoactive substance abuse, uncomplicated; Y92.480 Sidewalk as the place of occurrence of the external cause; Z87.891 Personal history of nicotine dependence
CPT/HCPCS: 36415; 80053; 80143; 80179; 80307; 83735; 85025; 96360; 99284; S9485

== ENCOUNTER 2025-03-01 12:54 | Outpatient (AMB) | payer OTHER, SELFPAY ==
--- NOTE | 2025-03-01 13:08 | MHC.OFFVIS ---
Vital Signs 03/01/25 13:09 Height 5 ft 11 in Weight 199 lb BMI 27.8 BP 140/86 H Pulse 94 Pulse Oximetry (%) 99 Intake Visit Reasons: MAT Allergies naltrexone Allergy (Mild, Verified 03/01/25 13:43) Swelling Face Medication List - Last Reconciled 03/01/25 by FAINA Whelan No Known Home Meds HPI Comments Details: The patient is a 35-year-old male who presents for follow-up related to alcohol use disorder, client call [facility] and reported a side effect facial swelling after initiating treatment with naltrexone tablets 50 mg 50 mg daily, at which time he was told to discontinue the medication. The patient reports after stopping the naltrexone tablets 50 mg of the facial swelling subsided. Due to the noted information the patient has a side effect and/or possibly allergic reaction to naltrexone tablets 50 mg. The patient reports no alcohol consumption for the past 9 days prior to this he does report drinking on a Friday and Friday on average of 4-8 beers and 3-5 nips of vodka. On 02/20/2025 the patient was found unresponsive on the sidewalk given Narcan and brought to the emergency for treatment. Reports he was drinking alcohol with a couple friends and was offered cocaine which he proceeded to consume and when he came to he was in the emergency room. The patient states I'll never do that again. He was able to connect [facility] and is following up with a therapist on a weekly basis. [facility] Medical History Alcohol withdrawal syndrome Alcoholism Schizophrenia Memory loss Bipolar 1 disorder Anxiety and depression Grief Alcoholic hepatitis Alcohol-induced psychosis, with delusions MDD (major depressive disorder), recurrent episode, moderate Surgical History (Updated 01/18/25 @ 11:04 by Mahogany Portillo MA) No pertinent past surgical history Family History (Updated 01/18/25 @ 11:06 by Mahogany Portillo MA) Father Substance abuse HTN (hypertension) Mother HTN (hypertension) Social History Household Members: Family Household Members Other:: Mother & Brother Both parents involved: No Caregiver staying overnight: No Housing: House Are you a primary grounds caretaker to a significant other at home: No Do you presently have visiting nurse or other home services: No 75 years or older and lives alone: No Alcohol intake: current Alcohol intake frequency: a few times a month Patient Tobacco Use Status: Former Tobacco user Tobacco use type: Cigarette Cigarette Packs Per Day: 0.5 Cigarettes Per Day: 10.0 Years Smoked: 15 e-Cigarette/Vaping Use: Former Use Second Hand Smoke Exposure: Yes Substance Use Type: Crack/Cocaine Advance Directives Date on File: 05/07/24 service: No Current occupational status: employed and unemployed Sexual orientation: Don't Know Cognitive needs: No Hearing needs: No Vision needs: No Review of Systems Const All systems reviewed & are unremarkable except as noted in HPI and below Physical Exam Vital Signs: Last Vital Signs Pulse 94 03/01/25 13:09 BP 140/86 H 03/01/25 13:09 Pulse Ox 99 03/01/25 13:09 BMI result Body Mass Index 27.8 Const General: cooperative Psych Appearance: well kempt Mental Status: mental status grossly normal Speech and movement: Normal speech and movement present Affect: normal affect Attitude: cooperative Thought process: Normal thought process present Thought content: Normal thought content present Insight: Good insight present (Psych) Judgement: Good judgement present (Psych) Assessment & Plan Assessment & Plan (1) Alcohol dependence: Code(s): F10.20 - Alcohol dependence, uncomplicated Category: Medical Qualifiers: Substance use status: alcohol-induced mood disorder Qualified Code(s): F10.24 - Alcohol dependence with alcohol-induced mood disorder Plan The plan of care is to start on acamprosate 2 tablets, 3 times per day. Education provided re: purpose, side effects, an general medication information. The patient was offered information on AA and peer recovery support and declines to proceed with additional resources at present time visit. Medications: New acamprosate Take two tablets by mouth three times per day. 666 mg (2 x 333 mg) PO TID 90 tabs 0RF Patient Instructions: - Start on acamprosate 333 mg, two tablets by mouth, three times per day. - Follow up with mental health therapist on a weekly basis. - Call with questions, concerns, or to reports side effects. - Follow up in one week or sooner, if needed. Coding Level of Care Code Est Pt Level 4 (83155) Diagnoses Alcohol dependence with alcohol-induced mood disorder F10.24 Substance use status: alcohol-induced mood disorder Time Spent (min) 30 Comment Chart prep and education
[2025-03-01 13:09] VITALS: BP 140/86; PULSE 94; O2SAT 99; BMI 27.8
== END 2025-03-01 13:58 | disposition home or self-care (01) ==
LOC: HO.HCC 12:55
PROVIDERS: PCP Nurse Practitioner Family; Visit Provider Clinical Nurse Specialist Psychiatric/Mental Health
DX: F10.24 Alcohol dependence with alcohol-induced mood disorder (principal)
CPT/HCPCS: 99214

== ENCOUNTER → 2025-03-01 12:54 | Outpatient (BNVA) | payer OTHER, SELFPAY | PROVIDERS: PCP Nurse Practitioner Family; Visit Provider Clinical Nurse Specialist Psychiatric/Mental Health | DX: F10.24 Alcohol dependence with alcohol-induced mood disorder (principal) | CPT/HCPCS: 99212 ==

== ENCOUNTER 2025-03-24 20:34 | Emergency (ER) | payer OTHER, SELFPAY ==
[2025-03-24 20:42] VITALS: BP 144/98; PULSE 96; O2SAT 99
[2025-03-24 20:45] VITALS: BP 123/88; PULSE 80; RESP 16; TEMP 36.6; O2SAT 98; BMI 27.4
--- NOTE | 2025-03-24 20:45 | PC.NURSE ---
PT noted hx of daily ETOH use with hx of withdrawal seizures. PT placed on beside cardiac monitoring using mobile vitals and athletic monitor, seizure pads attached bed rails. Sitter at bedside due to psychiatric concerns. pt interested in detox
--- NOTE | 2025-03-24 20:48 | ECG_ITS ---
Test Reason : MED CLEARNACE Blood Pressure : */* mmHG Vent. Rate : 88 BPM Atrial Rate : 88 BPM P-R Int : 154 ms QRS Dur : 90 ms QT Int : 364 ms P-R-T Axes : 48 61 41 degrees QTcB Int : 440 ms Normal sinus rhythm Normal ECG When compared with ECG of 21-Dec-2024 20:24, No significant change was found Referred By: Sadaf Mcrae Electronically Signed By: LUANN FREEMAN
[2025-03-24 21:04] LABS: MANUAL DIFF FLAG NO
[2025-03-24 21:06] LABS: Hematocrit 39.4 % (42.0-52.0); Hemoglobin 14.2 g/dl (14.0-18.0); Imm Gran Abs Auto 0.01 X10*3/uL (0.00-0.03); Imm Gran Pct Auto 0.2 % (0.0-0.4); Lymphocytes Absolute Auto 1.6 X10*3/uL (1.2-4.9); Mean Corpuscular HGB Conc 36.0 g/dl (31.0-36.0); Mean Corpuscular Hemoglobin 31.6 pg (27.0-33.0); Mean Corpuscular Volume 87.8 fL (80.0-98.0); NRBC Abs Auto 0.000 X10*3/uL (0.0-0.012); NRBC Pct Auto 0.0 /100WBC (0.0-0.2); Platelet Count 263 X10*3/uL (160-400); Red Blood Count 4.49 X10*6/uL (4.60-5.80); White Blood Count 4.3 X10*3/uL (4.8-10.8)
[2025-03-24 21:07] VITALS: BP 123/88; PULSE 80; RESP 16; TEMP 36.6; O2SAT 98
[2025-03-24 21:19] LABS: Alanine Aminotransferase 101 U/L (0-40); Albumin Level 4.3 g/dL (3.5-5.0); Alkaline Phosphatase 60 U/L (39-117); Anion Gap 14 (12-20); Aspartate Amino Transferase 267 U/L (5-37); Blood Urea Nitrogen 6 mg/dL (9-16); Calcium 8.2 mg/dL (8.4-10.2); Carbon Dioxide 28 mmol/L (22-29); Chloride 106 mmol/L (96-108); Creatinine Clr Calc Pharmacy 118.2; Estimated Glomerular Filt Rate > 60; Potassium 3.4 mmol/L (3.3-5.1); Sodium 145 mmol/L (135-145); Total Protein 6.7 g/dL (6.5-8.0)
[2025-03-24 21:27] LABS: Acetaminophen LAB < 3 mcg/mL (<30); Salicylate < 5.0 mg/dL (15-30)
[2025-03-24 21:40] LABS: IDNOW Serial# 6674DD1D
[2025-03-24 21:41] LABS: COVID-19 Test Negative (Negative)
[2025-03-24 22:31] VITALS: BP 101/63; PULSE 82; RESP 14; TEMP 36.8; O2SAT 92
--- NOTE | 2025-03-24 23:50 | PC.NURSE ---
Pt oxygen saturation decreasing to 88% while sleeping. Provider made aware. Placed pt on 1L NC, oxygen saturation improved to 96%. Pt continues to be SR on mortar carrier. Sitter at bedside. Plan of care ongoing
--- NOTE | 2025-03-25 02:09 | ED.PSYCH ---
HPI - Psych General Chief Complaint: Psychiatric Symptoms Stated Complaint: wants detox for drugs/alcohol, SI Time Seen by Provider: 03/25/25 01:09 Source: EMS Mode of arrival: EMS Limitations: altered mental status History of Present Illness ED Provider: Dr. Carol Culver HPI Narrative: With the emergency room via EMS. According to police department, they saw him walking, having a hard time. Patient admits that he has been snorting, believes it is crack cocaine. Patient believes that you may have been spiked with narcotics because it made him feel different that it usually does. Patient reports auditory hallucinations, states that he is depressed and he has been hearing his father. Patient is also paranoid, thinks that his mother's going to kill him even though his mother was trying to help him . Patient admits that he drinks alcohol and is requesting detox , patient denies HI. Related Data Previous Rx's ?Medication ?Instructions ?Recorded acamprosate 333 mg tablet,delayed 666 mg (2 x 333 mg) PO TID #90 tabs 03/01/25 release Allergies Allergy/AdvReac Type Severity Reaction Status Date / Time naltrexone Allergy Mild Swelling Verified 03/24/25 21:06 Face Review of Systems Review of Systems: Constitutional : No Weight loss, No Fever, No Chills, No Night Sweats, No Fatigue, No Malaise ENT/Mouth : No Hearing loss, No Ear Pain, No Nasal Congestion, No Sinus Pain, No Hoarseness, No sore throat, No Rhinorrhea, No Swallowing Difficulty Eyes: No Eye Pain, No Swelling, No Redness, No Foreign Body, No Discharge, No Vision Changes Cardiovascular : No Chest Pain, No SOB, No Dyspnea on Exertion, No Orthopnea, No Edema, No Palpitations Respiratory : No Cough, No Sputum, No Wheezing, No Smoke Exposure, No Dyspnea Gastrointestinal : No Nausea, No Vomiting, No Diarrhea, No Constipation, No abdominal Pain, No Hematochezia, No Melena Genitourinary : no irregular bleeding, No Dysuria, No Urinary Frequency, No Hematuria, No Urinary Incontinence, No Urgency, No Flank Pain, No Urinary Flow Changes, No Hesitancy Musculoskeletal : No joint pain, No Myalgias, No Joint Swelling Skin : No Skin Lesions, No rash Neuro : No Weakness, No Numbness, No Paresthesias, No Loss of Consciousness, No Dizziness, No Headache Psych : Hearing father's voice, paranoid, thinks this mother's going to kill him, admits to polysubstance abuse Heme/Lymph: No Bruising, No Bleeding,No Lymphadenopathy Endocrine : No Polyuria, No Polydipsia, No Temperature Intolerance PMFSH Past Medical History Medical History Alcohol withdrawal syndrome Alcoholism Schizophrenia Memory loss Bipolar 1 disorder Anxiety and depression Grief Alcoholic hepatitis Alcohol-induced psychosis, with delusions MDD (major depressive disorder), recurrent episode, moderate Surgical History (Updated 01/18/25 @ 11:04 by Mahogany Portillo MA) No pertinent past surgical history Family History Family History (Updated 01/18/25 @ 11:06 by Mahogany Portillo MA) Father Substance abuse HTN (hypertension) Mother HTN (hypertension) Social History Social History Household Members: Family Household Members Other:: Mother & Brother Housing: House Are you a primary healthcare recruiter to a significant other at home: No Do you presently have visiting nurse or other home services: No Alcohol intake: current Alcohol intake frequency: 3 or more drinks per day Patient Tobacco Use Status: Former Tobacco user Tobacco use type: Cigarette Cigarette Packs Per Day: 0.5 Cigarettes Per Day: 10.0 Years Smoked: 15 Smoked in Last 30 Days: Yes e-Cigarette/Vaping Use: Former Use Second Hand Smoke Exposure: Yes Use of substances other than those prescribed or required for medical reasons: Yes Substance Use Type: Crack/Cocaine Substance Use Frequency: Daily Advance Directives: Yes Advance Directives on File: Yes Advance Directives Date on File: 05/07/24 Do you have a plan to hurt others: No Plan service: No Current occupational status: employed and unemployed Sexual orientation: Don't Know Cognitive needs: No Hearing needs: No Vision needs: No Physical Exam Exam: Exam: Appearance: Alert. Somnolent but easily arousable, still a bit intoxicated/under the influence of drugs Eyes: Pupils equal, round and reactive to light. ENT: Pharynx normal. Neck: Normal inspection. Neck supple. No lymph nodes noted. No crepitus CVS: Normal heart rate and rhythm. Pulses normal. Normal S1 and S2 Respiratory: No respiratory distress. Breath sounds normal. No Wheezing. No rales Abdomen: Soft and nontender. No rigidity. No distention. Skin: Skin warm and dry. Normal skin color. Normal skin turgor. Extremities: No lower extremity edema. No Lacerations. No Rash Neuro: Oriented X 3. No motor deficit. No sensory deficit. Moving all extremities. No slurred speech. CN 2 through 12 grossly intact Psych: calm, cooperative Vital Signs: Vital Signs: Last Vital Signs Temp 98.3 F 03/24/25 22:31 Pulse 60 03/25/25 06:02 Resp 18 03/25/25 06:02 BP 96/62 03/25/25 06:02 Pulse Ox 97 03/25/25 06:02 O2 Del Method Room Air 03/25/25 06:02 O2 Flow Rate 1 03/25/25 02:18 BMI result Body Mass Index 27.4 Course Course Course Narrative: Patient is under the influence of drugs versus alcohol Patient reports hearing his father's voice Patient has strong psychiatric history. Care team consult pending Physician observation started at 02:15 Time: 14:55 Date: 03/25/25 Provider: Adan Bianchi MD Physician observation ended at 14:55 hours. Patient was evaluated by the CARE team and I obtained the following information from the care team clinician. Patient presented with alcohol and cocaine use. Patient has audio hallucinations and sometimes wishes that he is but does not have a plan to kill himself. At this time he is not suicidal and it was felt that he can be discharged home. Patient will be discharged with follow up plan by care team. Medications Administered Generic Name Dose Route Start Last Admin Trade Name Freq PRN Reason Stop Dose Admin Lorazepam 2 mg 03/25/25 06:40 03/25/25 14:48 Lorazepam 1 Mg Tablet PO 2 mg Q3H PRN Administration Alcohol Withdrawal Discontinued Medications Generic Name Dose Route Start Last Admin Trade Name Freq PRN Reason Stop Dose Admin Diazepam 5 mg 03/25/25 06:40 03/25/25 06:47 Diazepam 10 Mg/2 Ml Cartridge IM 03/25/25 06:41 5 mg STAT STA Administration Medical Decision Making Medical Decision Making MDM Narrative: My interpretation of labs: Patient's hematology does not show any acute abnormality. Chemistry does not show any acute abnormality. AST and ALT doubled in ETOH abuse pattern, acetaminophen and salicylate levels negative, ETOH 288 Care team consult pending per patient's request for detox Patient continues on physician observation Differential Diagnosis Differential Diagnoses: The differential diagnosis associated with the presentation includes (Alcohol abuse, alcohol tenderness, polysubstance abuse, suicidal ideation) Admission/Observation Consideration of admission/observation: Escalation of care including admission/observation considered (Patient is under physician observation waiting to be seen by the care team) Lab Data MDM Lab Attestation statement: I reviewed the patient's lab results. 03/24/25 20:57 03/24/25 20:58 Labs: Lab Results 03/24/25 03/24/25 03/25/25 Range/Units 20:57 20:58 06:59 WBC 4.3 L (4.8-10.8) X10*3/uL RBC 4.49 L (4.60-5.80) X10*6/uL Hgb 14.2 (14.0-18.0) g/dl Hct 39.4 L (42.0-52.0) % MCV 87.8 (80.0-98.0) fL MCH 31.6 (27.0-33.0) pg MCHC 36.0 (31.0-36.0) g/dl RDW 12.7 (11.0-16.0) % Plt Count 263 (160-400) X10*3/uL MPV 8.7 L (9.4-12.4) fL Immature Gran % (Auto) 0.2 (0.0-0.4) % Neut % (Auto) 42.3 L (45-73) % Lymph % (Auto) 36.9 (20-40) % [place] % (Auto) 13.6 H (2-11) % Eos % (Auto) 5.4 H (0-4) % Baso % (Auto) 1.6 (0-2) % Lymph # (Auto) 1.6 (1.2-4.9) X10*3/uL [place] # (Auto) 0.6 (0.1-1.2) X10*3/uL Eos # (Auto) 0.2 (0.0-0.4) X10*3/uL Baso # (Auto) 0.1 (0.0-0.2) X10*3/uL Abs Immat Gran (auto) 0.01 (0.00-0.03) X10*3/uL Absolute Neuts (auto) 1.8 L (2.0-8.3) x10*3/uL Absolute Nucleated RBC 0.000 (0.0-0.012) X10*3/uL Nucleated RBC % (auto) 0.0 (0.0-0.2) /100WBC Sodium 145 (135-145) mmol/L Potassium 3.4 (3.3-5.1) mmol/L Chloride 106 (96-108) mmol/L Carbon Dioxide 28 (22-29) mmol/L Anion Gap 14 (12-20) BUN 6 L (9-16) mg/dL Creatinine 0.92 (0.5-1.4) mg/dL Estim Creat Clear Calc 118.2 Estimated GFR > 60 Random Glucose 73 (60-115) mg/dL Calcium 8.2 L (8.4-10.2) mg/dL Total Bilirubin 0.5 (0.0-1.0) mg/dL AST 267 H (5-37) U/L ALT 101 H (0-40) U/L Alkaline Phosphatase 60 (39-117) U/L Total Protein 6.7 (6.5-8.0) g/dL Albumin 4.3 (3.5-5.0) g/dL Urine Color Dark Yellow Urine Appearance Clear Urine pH 5.5 (5.0-9.0) Ur Specific [place] 1.025 (1.005-1.025) Urine Protein Trace (Neg-Trace) mg/dL Urine Glucose (UA) Negative (Negative) mg/dL Urine Ketones Trace (Negative) mg/dL Urine Blood Negative (Negative) Urine Nitrite Negative (Negative) Ur Leukocyte Esterase Trace H (Negative) Urine RBC 0-2 (0-2) /HPF Urine WBC 0-5 (0-5) /HPF Ur Squamous Epith Cells 3-5 (0-2) /HPF Urine Bacteria None Seen (None Seen) Hyaline Casts 3-5 (0-2) /LPF Salicylates < 5.0 L (15-30) mg/dL Urine Opiates Screen Not Detected (Not Detect) Ur Buprenorphine Scrn Not Detected (Not Detect) ng/mL Ur Oxycodone Screen Not Detected (Not Detect) ng/mL Urine Methadone Screen Not Detected (Not Detect) ng/mL Urine Fentanyl Screen Not Detected (Not Detect) Acetaminophen < 3 (<30) mcg/mL Ur Barbiturates Screen Not Detected (Not Detect) Ur Phencyclidine Scrn Not Detected (Not Detect) Ur Amphetamines Screen Not Detected (Not Detect) U Benzodiazepines Scrn Not Detected (Not Detect) Urine Cocaine Screen POSITIVE H (Not Detect) U Marijuana (THC) Screen Not Detected (Not Detect) Ethyl Alcohol 288 mg/dL COVID-19 (BHARATHI) Negative (Negative) COVID-19 Clin Com See Note Critical Care Time Critical Care Time Critical Care Time: Yes Total Critical Care Time: 35 Attestation: I have personally provided critical care time. Time includes review of lab data, radiology results, discussion with consultants, and monitoring for potential decompensation. Intervention performed as documented. Discharge Plan Discharge Clinical Impression: Alcohol abuse, Auditory hallucination Patient Disposition: Home, Self-Care Additional Instructions: You were seen by our care team and they offered to get you into a detox program but you were not interested at this time. Please see the information below on alcohol use disorder. You also expressed some thoughts of killing yourself, please see the information below on suicide prevention and potential options for therapy. Please follow the care team instructions. Alcohol use disorder You were seen in the Emergency Department today for treatment of alcohol use disorder.? You may have been given medications to help with your withdrawal symptoms.? Please do not drink alcohol with them. This is very dangerous and can cause respiratory depression or other adverse reactions depending on the medication. If you would like to cut down or stop your alcohol use please consider calling our outpatient Addiction Treatment office:? [facility] (M-F [id number]) [address] You have also been given a list of treatment providers in the area that can assist as well.? If you experience seizures, vomiting blood, black stools, falls, severe headache, chest pain, fevers, trouble breathing, hallucinations or any other concerns you need to call 911 or seek immediate care. Please stay hydrated. You were seen in our Emergency Department today for treatment of a behavioral health issue. It is important after your visit that you follow up with either your behavioral health provider or a primary care doctor within 7 days.? If you have trouble finding a therapist you can reach out to [address] [phone] The National Suicide and Crisis Lifeline can be reached 7 days a week 24 hours a day.? Call 088 to speak with someone.? Return for any worsening symptoms or concerns such as thoughts of self harm or harm to others. Please call 911 if you feel your mental health is worsening.? Prescriptions: No Action acamprosate 333 mg tablet,delayed release (DR/EC) 666 mg PO TID Qty: 90 0RF Rx Instructions: Take two tablets by mouth three times per day. Interventions: [place]-Suicide Risk Severity Scale Last Done: 03/24/25 21:07 Print Language: Yoruba
[2025-03-25 02:18] VITALS: BP 98/67; PULSE 73; RESP 16; O2SAT 96
[2025-03-25 06:02] VITALS: BP 96/62; PULSE 60; RESP 18; O2SAT 97
[2025-03-25] MEDS: diazePAM 10 MG/2 ML CARTRIDGE 5 MG IM (06:47)
[2025-03-25 07:10] LABS: Appearance Urine Clear; Glucose Urine UA Negative (Negative); PH 5.5 (5.0-9.0); Specific Gravity - Urine 1.025 (1.005-1.025); UMIC TRIGGER UA YES
[2025-03-25 07:16] LABS: Cannabinoid Screen Urine Not Detected (Not Detect)
--- NOTE | 2025-03-25 07:33 | PC.NURSE ---
Assumed care of patient at 0645, patient appears to be in no apparent distress this am, calm and cooperative, offering no complaints to this RN. Continue plan of care for CARE team eval
[2025-03-25 15:07] VITALS: BP 148/102; PULSE 90; RESP 14; TEMP 36.3; O2SAT 100
== END 2025-03-25 15:10 | disposition home or self-care (01) ==
PROVIDERS: Physician Assistant Medical; Emergency Provider Emergency Medicine
DX: F10.288 Alcohol dependence with other alcohol-induced disorder (principal); R45.851 Suicidal ideations; R44.0 Auditory hallucinations; F14.10 Cocaine abuse, uncomplicated
CPT/HCPCS: 80053; 80143; 80179; 80307; 81001; 85025; 87635; 93005; 96372; 99285; J3360; S9485

== ENCOUNTER → 2025-03-24 20:48 | Outpatient (BNV) | payer OTHER, SELFPAY | PROVIDERS: Emergency Provider Emergency Medicine; Visit Provider Internal Medicine | DX: Z13.6 Encounter for screening for cardiovascular disorders (principal) | CPT/HCPCS: 93010 ==

== ENCOUNTER 2025-05-24 00:24 | Emergency (ER) | payer OTHER, SELFPAY ==
[2025-05-24 00:34] VITALS: BP 152/89; PULSE 95; O2SAT 95
[2025-05-24 00:37] VITALS: BP 110/75; PULSE 83; RESP 18; TEMP 37; O2SAT 95; BMI 27.4
--- NOTE | 2025-05-24 00:51 | ED_ITS ---
HPI - General Adult General Chief complaint: Overdose Stated complaint: OVERDOSE Time Seen by Provider: 05/24/25 00:51 Source: patient and EMS Mode of arrival: EMS Limitations: no limitations History of Present Illness ED Provider: Sadaf Mcrae PA-C HPI narrative: Patient is a 35 year old assigned male at with a history of MDD, crack cocaine use, ETOH use presenting to the emergency department today after an accidental overdose. Patient states that he was attempting to use cocaine when he snorted a bag and it turned out to be opiate based. EMS states that the patient was found down and given a total of 8mg of narcan. Patient states that he feels OK now and has no complaints. Patient states that he does not want to speak to anyone about recovery / detox / or MAT and denies any intentional opiate use. Related Data Previous Rx's ?Medication ?Instructions ?Recorded acamprosate 333 mg tablet,delayed 666 mg (2 x 333 mg) PO TID #90 tabs 03/01/25 release Allergies Allergy/AdvReac Type Severity Reaction Status Date / Time naltrexone Allergy Mild Swelling Verified 05/24/25 00:55 Face shellfish derived (shellfish) Allergy Hives Verified 05/24/25 00:53 Review of Systems Constitutional: Constitutional: Reports as per HPI Eyes: Eyes: Reports as per HPI ENT: Reports as per HPI Cardiovascular: Cardiovascular: Reports as per HPI Respiratory: Respiratory: Reports as per HPI Gastrointestinal: Gastrointestinal: Reports as per HPI Genitourinary: Genitourinary: Reports as per HPI Musculoskeletal: Musculoskeletal: Reports as per HPI Integumentary/Breasts: Skin/Breast: Reports as per HPI Neurologic: Reports as per HPI Psychiatric: Psychiatric: Reports as per HPI Endocrine: Endocrine: Reports as per HPI Hematologic/Lymphatic: Hematologic/Lymphatic: Reports as per HPI Allergic/Immunologic: Allergic/Immunologic: Reports as per HPI PMFSH Past Medical History Attestation statement: The following information was validated with the patient. Source: old records reviewed and nursing notes reviewed Medical History Alcohol withdrawal syndrome Alcoholism Schizophrenia Memory loss Bipolar 1 disorder Anxiety and depression Grief Alcoholic hepatitis Alcohol-induced psychosis, with delusions MDD (major depressive disorder), recurrent episode, moderate Surgical History No pertinent past surgical history Family History Family History Father Substance abuse HTN (hypertension) Mother HTN (hypertension) Social History Social History Household Members: Family Household Members Other:: Mother & Brother Housing: House Are you a primary life care planner to a significant other at home: No Do you presently have visiting nurse or other home services: No Alcohol intake: current Alcohol intake frequency: 0-2 drinks per day Patient Tobacco Use Status: Former Tobacco user Tobacco use type: Cigarette Cigarette Packs Per Day: 0.5 Cigarettes Per Day: 10.0 Years Smoked: 15 Smoked in Last 30 Days: No e-Cigarette/Vaping Use: Former Use Second Hand Smoke Exposure: Yes Substance Use Type: Crack/Cocaine and Marijuana Advance Directives Date on File: 05/07/24 service: No Current occupational status: employed and unemployed Sexual orientation: Don't Know Cognitive needs: No Hearing needs: No Vision needs: No Physical Exam ED Vital Signs: Vital Signs - 24 hr 05/24/25 00:37 05/24/25 05:48 Temperature 98.6 F 98.1 F Pulse Rate 83 75 Respiratory Rate 18 18 Blood Pressure 110/75 96/48 L Pulse Oximetry 95 95 Oxygen Delivery Method Room Air Room Air BMI result Body Mass Index 27.4 Const General: cooperative, no acute distress, alert and awake Nutritional Appearance: well nourished Orientation/consciousness: patient oriented x3 HENMT Head: Yes normal to inspection and Yes atraumatic Ears: hearing grossly normal bilaterally and external ears normal General nose exam: Normal external nose present, no nasal discharge noted and no epistaxis Face and sinus: Yes normal facial exam, No abrasion and No laceration Mouth: Normal oral and palatal mucosa present, no drooling and no muffled voice Eyes General: appearance normal, both eyes and all related structures Periorbital: periorbital findings normal Eyelids: Yes eyelids normal Conjunctivae: conjunctivae normal Pupils: Equal, round and reactive pupils present EOM: EOMs intact bilaterally Neck Neck: Yes normal visual inspection and Yes full ROM Resp Effort & Inspection: normal respiratory effort and able to speak in complete sentences Neuro General: patient oriented x3, moves all extremities and CN's II-XI intact bilaterally Cranial nerves: Yes Equal, round and reactive pupils present Cognition (Neuro): normal cognition Extrem General: Yes normal to inspection, Yes full ROM and Yes capillary refill normal Psych Appearance: grossly normal Mental Status: mental status grossly normal Affect: normal affect Attitude: cooperative Thought process: Normal thought process present Thought content: Normal thought content present Insight: Good insight present (Psych) Medical Decision Making Medical Decision Making MDM Narrative: Patient is a 35 year old assigned male at with a history of MDD, crack cocaine use, ETOH use presenting to the emergency department today after an accidental overdose. Patient's physical exam was unremarkable. Patient declined any blood work or EKG to be performed at this time. Patient declined speaking with the CARE team, recovery team, or addiction teams. I explained my physical exam findings to the patient. I answered all questions asked by the patient. Patient placed in observation at 0102 pending him feeling rested enough to discharge or he changes his mind about a medical work up, speaking to the CARE team, or speaking to the addiction team. 7:19 AM 05/24/2025 (Dr. Samia Juárez, D.O.) observation ending at 7:19 a.m.. Patient is requesting discharge to follow up with his providers that he uses as an outpatient already. Reports feeling shaky and like he is going into alcohol withdrawal. We will give a dose of Valium and have him follow up with his providers. We had an extensive discussion regarding cessation of cocaine use and the probability that he will be overdosing on opiates again because most of the street drugs are currently being cut with fentanyl. He received a Narcan kit prior to discharge. Discharged home in stable and improved condition. Differential Diagnosis Differential Diagnoses: The differential diagnosis associated with the presentation includes Accidental overdose Opiate use Admission/Observation Consideration of admission/observation: Escalation of care including admission/observation considered Patient would have been admitted to the hospital had his clinical presentation warranted hospital admission. Independent Historian Clinical information obtained from an independent historian. History obtained from or confirmed by: EMS (EMS provided additional history and confirmed the history provided by the patient. ) Discharge Plan Discharge Clinical Impression: Accidental overdose Qualifiers: Encounter type: initial encounter Qualified Code(s): T50.901A - Poisoning by unspecified drugs, medicaments and biological substances, accidental (unintentional), initial encounter Alcohol dependence Qualifiers: Substance use status: alcohol-induced mood disorder Qualified Code(s): F10.24 - Alcohol dependence with alcohol-induced mood disorder Patient Disposition: Home, Self-Care Instructions: Adult Overdose (ED) Additional Instructions: You were seen in our Emergency Department after an opiate overdose. You received Narcan in order to reverse the effects of overdose. You may have been given Narcan to take home with you today, please keep it near you if you are going to use again, so others can use it on you if needed.? The number one risk for fatal overdose is using alone. [employer] is a 10/03 hotline where you can be on the phone with someone while you use, and they can call for help if they suspect an overdose: [phone] Things to look out for when you leave include: severe vomiting or diarrhea, headaches, muscle cramps, fever, coughing, chest pain, or if you feel so short o f breath you cannot walk more than a few steps. Please seek care / return or proceed to your nearest emergency department or call 911 any time for worsening symptoms.? If you decide you want to stop or cut down on how much you?re using, please call the numbers in the booklet provided to you or you can come to our outpatient Addiction Treatment office: [facility] (M-F 9am-5p) [address] [place] [address], [address] [place], [place]. [phone] IF you are prescribed home medications and/or you are taking over the counter medications at home - it is very important you continue to do so as prescribed / directed unless told otherwise. Follow up with a primary care provider. Return to the emergency department immediately if your symptoms worsen or if you develop any numbness, tingling, dizziness, shortness of breath, difficulty breathing, chest pain, blurry vision, loss of vision, nausea, vomiting, abdominal pain, fever, chills, back pain, or any other complaints. If you do not have a primary care provider - call any of the below numbers to establish and follow up with a primary care provider. [facility] Primary Care ([place]) [phone] [place] [address], [address] [facility] Primary Care ([address] [place]) [phone] [place] [address], [address] [facility], [address] [facility] Primary Care ([address] [place]) [phone] [place] [address], [address] [facility], [address] [facility] Care ([place]) [phone] [place] [address] [address] [facility], [address] [facility] Family Medicine [phone] [address] [facility], [address] Please see the information below about our Patient Portal. If you are not yet enrolled in the [facility] Patient Portal, you will receive an enrollment email invitation following your visit to any [facility] setting. You may also self-enroll in the Patient Portal by visiting our website: [email or web address] The following information is required to access the Patient Portal: - Your [facility] Medical Record Number - Your personal home email address (must match what is in your electronic medical record, Registration staff can assist with this) - Name - Date of Capabilities of the Patient Portal: - Message some providers - View upcoming appointments - Access your health summary, medical history, and visit history - View current conditions and allergies - View procedure and lab results - View your medications, including guidelines, side effects, and precautions - Complete pre-appointment questionnaires requested by your provider - Ready summary reports of your office visits and procedures To access the Patient Portal Mobile Joey, follow these directions: - Search Re2you in the Joey Store or Google Play Store - Download the Joey - Search for [facility] - Enter your login/password Prescriptions: No Action acamprosate 333 mg tablet,delayed release (DR/EC) 666 mg PO TID Qty: 90 0RF Rx Instructions: Take two tablets by mouth three times per day. Print Language: Cypriot
[2025-05-24 05:48] VITALS: BP 96/48; PULSE 75; RESP 18; TEMP 36.7; O2SAT 95
[2025-05-24] MEDS: Naloxone HCl Nasal TAKE HOME 4 MG SPRAY 8 MG NOSTRILALT (07:35)
[2025-05-24 08:27] VITALS: BP 118/69; PULSE 79; RESP 15; TEMP 36.4; O2SAT 98
--- NOTE | 2025-05-24 08:27 | PC.NURSE ---
belongings retrieved from [facility] prior to d/c.
[2025-05-24 08:28] VITALS: BP 118/69; PULSE 79; RESP 15; TEMP 36.4; O2SAT 98
== END 2025-05-24 09:00 | disposition home or self-care (01) ==
PROVIDERS: Emergency Provider Emergency Medicine; PCP Nurse Practitioner Family
DX: T40.2X1A Poisoning by other opioids, accidental (unintentional), initial encounter (principal); T40.601A Poisoning by unspecified narcotics, accidental (unintentional), initial encounter; R40.4 Transient alteration of awareness; Y92.9 Unspecified place or not applicable; F10.24 Alcohol dependence with alcohol-induced mood disorder; F14.10 Cocaine abuse, uncomplicated; Z87.891 Personal history of nicotine dependence; Z71.51 Drug abuse counseling and surveillance of drug abuser
CPT/HCPCS: 99284